=== PATIENT | male | born 1960 | race African-American/Black ===

== ENCOUNTER 2016-04-21 12:58 | Emergency (ER) | payer MEDICARE, OTHER ==
[2016-04-21 13:09] VITALS: TEMP 98.5
[2016-04-21] MEDS ORDERED: METOCLOPRAMIDE 5 MG/ML 2 ML VIAL IVP STA (13:20)
[2016-04-21] MEDS ORDERED: diphenhydrAMINE 50 MG/ML 1 ML VIAL IVP STA (13:20)
[2016-04-21] MEDS ORDERED: SODIUM CHLORIDE 0.9% 1,000 ML IV STA (13:20)
[2016-04-21] MEDS ORDERED: ACETAMINOPHEN IV (For NPO) 1,000 MG in EMPTY BAG 1 BAG IVPB STA (13:21)
[2016-04-21] MEDS ORDERED: cloNIDine HCL 0.1 MG TAB PO STA (13:28)
--- NOTE | 2016-04-21 13:34 | ED ---
Recheck HPI - General Chief Complaint: Recheck/Abnormal Lab/Rx Stated Complaint: Headache Time Seen by Provider: 04/21/16 13:20 Source: patient, EMS, RN notes reviewed Mode of arrival: EMS Limitations: no limitations - History of Present Illness Initial Comments: Patient is a 55-year-old male with a chief complaint of a migraine-like headache for approximately one morning. Patient reports that he has history of hypertension and usually is migraines are related is high blood pressure. Patient reports that he manages this with atenolol and hydrochlorothiazide and to take his medications this morning. Patient reports that he has a history of coronary artery disease, hypertension and type 2 diabetes. Patient denies any neurological deficits. He reports that he went to a pharmacy earlier today to check his blood pressure and it was reading 240/128. At that point patient decided to take EMS to the ER. While patient is in the ER the blood pressure is currently 170/90. Patient adamantly denies any chest pain or shortness of breath. Patient denies any changes in vision. Patient denies any recent fever, chills, shortness of breath, chest pain, back pain, abdominal pain, nausea vomiting, numbness or tingling, dysuria or hematuria, constipation or diarrhea, or visual changes, or any other current symptoms - Related Data Home Medications Medication Instructions Recorded Confirmed Atenolol [Tenormin] 50 mg PO DAILY 07/14/14 04/21/16 Lisinopril [Zestril] 10 mg PO DAILY 07/15/14 04/21/16 Pravastatin Sodium [Pravachol] 40 mg PO DAILY 07/15/14 04/21/16 Furosemide [Lasix] 40 mg PO DAILY 04/21/16 04/21/16 HYDROcodone/APAP 7.5-325MG [[place] 1 tab PO Q8H PRN 04/21/16 04/21/16 7.5-325] metFORMIN HCL [metFORMIN HCL ER] 750 mg PO BID 04/21/16 04/21/16 Allergies Allergy/AdvReac Type Severity Reaction Status Date / Time No Known Allergies Allergy Verified 04/21/16 13:36 Review of Systems ROS Statement: Those systems with pertinent positive or pertinent negative responses have been documented in the HPI. ROS Other: All systems not noted in ROS Statement are negative. 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 He denies any street drug use. He drinks alcohol on a rare basis. Past Drug Use History: None Reported - Past Family History Father Additional Family Medical History / Comment(s): Father at 66 from coronary artery disease. Mother Family Medical History: Cancer Additional Family Medical History / Comment(s): Mother at age 42 from breast cancer. Patient has 2 brothers and 2 sisters with no major medical problems besides one sister with MRSA General Exam - General Exam Comments Initial Comments: Patient is a pleasant 55-year-old -[place] male. He does not appear to be in any acute distress. Patient is joking and laughing while the bedside. Limitations: no limitations General appearance: alert, in no apparent distress Head exam: Present: atraumatic, normocephalic, normal inspection Eye exam: Present: normal appearance, PERRL, EOMI. Absent: scleral icterus, conjunctival injection, periorbital swelling ENT exam: Present: normal exam, mucous membranes moist Neck exam: Present: normal inspection. Absent: tenderness, meningismus, lymphadenopathy Respiratory exam: Present: normal lung sounds bilaterally. Absent: respiratory distress, wheezes, rales, rhonchi, stridor Cardiovascular Exam: Present: regular rate GI/Abdominal exam: Present: soft, normal bowel sounds. Absent: distended, tenderness, guarding, rebound, rigid Extremities exam: Present: normal inspection, full ROM, normal capillary refill. Absent: tenderness, pedal edema, joint swelling, calf tenderness Back exam: Present: normal inspection Neurological exam: Present: alert, oriented X3, CN II-XII intact Expanded Speech: Present: fluid speech Cranial nerves: EOM's Intact: Normal, Gag Reflex: Normal, Tongue Deviation: Normal Cerebellar function: Finger to Nose: Normal Upper motor neuron: Pronator Drift: Normal Sensory exam: Upper Extremity Light Touch: Normal, Lower Extremity Light Touch: Normal Motor strength exam: RUE: 5, LUE: 5, RLE: 5, LLE: 5 Eye Response: (4) open spontaneously Motor Response: (6) obeys commands Verbal Response: (5) oriented Gail Total: 15 Psychiatric exam: Present: normal affect, normal mood Skin exam: Present: warm, dry, intact, normal color. Absent: rash Course Vital Signs 04/21/16 04/21/16 04/21/16 13:05 14:12 15:09 Temperature 98.5 F Pulse Rate 55 L 56 L 55 L Respiratory 18 18 16 Rate Blood Pressure 179/90 169/85 154/85 O2 Sat by Pulse 98 95 98 Oximetry - Reevaluation(s) Reevaluation #1: 04/21/16 14:44 Patient was reevaluated at this time and his blood pressure is going significantly down. Patient headache is currently a 2 out of 10. His blood pressure at this time is 153/80. Medical Decision Making - Medical Decision Making Patient is a 55-year-old male with chief complaint of headache as well as high blood pressure for approximately 1 day. Patient BMP shows no evidence of any acute kidney injury. Patient reports earlier today his blood pressure was 220/ 110 at a pharmacy. Patient arrived via EMS to the [facility] and his blood pressure at that time was 179/90. Patient was given IV hydration, Reglan, Benadryl and O from it. Patient was reevaluated and his headache is gone down significantly. Patient reports his headache is currently a [address] brain shows no evidence of any acute abnormalities, intracranial hemorrhage or midline shift. Patient will be discharged at this time and instructed to follow-up with primary care provider regards to hypertension. I advised patient to return to the [facility] if any alarming signs or symptoms occur. Patient understands treatment plan will comply. Return parameters were discussed. - Lab Data Result diagrams: 04/21/16 14:10 Lab Results 04/21/16 Range/Units 14:10 Sodium 144 (137-145) mmol/L Potassium 4.3 (3.5-5.1) mmol/L Chloride 105 (98-107) mmol/L Carbon Dioxide 28 (22-30) mmol/L Anion Gap 11 mmol/L BUN 12 (9-20) mg/dL Creatinine 0.98 (0.66-1.25) mg/dL Est GFR (MDRD) Af Amer >60 (>60 ml/min/1.73 sqM) Est GFR (MDRD) Non-Af >60 (>60 ml/min/1.73 sqM) Glucose 113 H (74-99) mg/dL Calcium 9.8 (8.4-10.2) mg/dL - Radiology Data Radiology results: report reviewed CT brain is negative for any acute process. Disposition Clinical Impression: Acute headache, Hypertension Disposition: HOME SELF-CARE Condition: Good Instructions: Acute Headache (ED) Additional Instructions: Patient instructed to follow-up with primary care provider regards to hypertension. Take Motrin Tylenol for further headaches. Return to the EC if any alarming signs or symptoms occur. Referrals: Ava Calzada MD [Primary Care Provider] - 1-2 days Time of Disposition: 14:56
[2016-04-21 14:41] LABS: Anion Gap 11 mmol/L; Blood Urea Nitrogen 12 mg/dL (9-20); Calcium 9.8 mg/dL (8.4-10.2); Carbon Dioxide 28 mmol/L (22-30); Chloride 105 mmol/L (98-107); Glucose 113 mg/dL (74-99); Non-African American GFR(MDRD) >60 (>60 ml/min/1.73 sqM); Potassium 4.3 mmol/L (3.5-5.1); Sodium 144 mmol/L (137-145)
--- NOTE | 2016-04-21 14:56 | CT ---
EXAMINATION TYPE: CT brain wo con DATE OF EXAM: 04/21/2016 2:35 PM COMPARISON: NONE HISTORY: Headache CT DLP: 1213 mGycm Automated exposure control for dose reduction was used. FINDINGS: Ventricles and sulci appear normal. There is no mass effect nor midline shift. There is no sign of in tracranial hemorrhage. The calvarium is intact. IMPRESSION: Negative unenhanced head CT scan.
[2016-04-21 15:09] VITALS: BP 154/85; PULSE 55; RESP 16
== END 2016-04-21 15:26 | disposition home or self-care (01) ==
LOC: EC 12:58
DX: I10 Essential (primary) hypertension (principal); R51 Headache; E11.9 Type 2 diabetes mellitus without complications; E78.5 Hyperlipidemia, unspecified; I25.10 Atherosclerotic heart disease of native coronary artery without angina pectoris; G47.30 Sleep apnea, unspecified; Z99.89 Dependence on other enabling machines and devices; Z79.84 Long term (current) use of oral hypoglycemic drugs; Z79.899 Other long term (current) drug therapy
CPT/HCPCS: 36415; 80048; 70450; 99285; 96365; 96375 ×2; 96361; J1200; J2765; J0131

== ENCOUNTER 2016-04-22 12:33 | Emergency (ER) | payer MEDICARE, OTHER ==
[2016-04-22 12:43] VITALS: TEMP 98.5
[2016-04-22] MEDS ORDERED: LISINOPRIL 10 MG TAB PO STA (14:01)
--- NOTE | 2016-04-22 14:09 | ED ---
General Adult HPI - General Chief complaint: Recheck/Abnormal Lab/Rx Stated complaint: Hypertension Time Seen by Provider: 04/22/16 13:52 Source: patient, RN notes reviewed, old records reviewed Mode of arrival: ambulatory Limitations: no limitations - History of Present Illness Initial comments: Patient 55-year-old male with significant past medical history for hypertension , who presents emergency room today with chief complaint of elevated blood pressure. Patient does admit that he had a cough at home took his blood pressure again this morning was 184/107. States he called his family doctor's office. States they were at lunch and was advised coming here to emergency room if blood pressure increased. Patient does admit that he was seen here yesterday for elevated blood pressure with headache. He states he was given medications and began feeling better. He states she's not having any headache at this time. He states feels fine a symptomatic otherwise. Take his blood pressure medications this morning. He states he took his Lasix 40 mg, atenolol 50 mg, and lisinopril 10 mg this morning. Patient denies any recent fever, chills, shortness of breath, chest pain, back pain, abdominal pain, nausea or vomiting, numbness or tingling, dysuria or hematuria, constipation or diarrhea, headaches or visual changes, or any other complaints. - Related Data Home Medications Medication Instructions Recorded Confirmed Atenolol [Tenormin] 50 mg PO DAILY 07/14/14 04/21/16 Lisinopril [Zestril] 10 mg PO DAILY 07/15/14 04/21/16 Pravastatin Sodium [Pravachol] 40 mg PO DAILY 07/15/14 04/21/16 Furosemide [Lasix] 40 mg PO DAILY 04/21/16 04/21/16 HYDROcodone/APAP 7.5-325MG [[place] 1 tab PO Q8H PRN 04/21/16 04/21/16 7.5-325] metFORMIN HCL [metFORMIN HCL ER] 750 mg PO BID 04/21/16 04/21/16 Allergies Allergy/AdvReac Type Severity Reaction Status Date / Time No Known Allergies Allergy Verified 04/22/16 12:42 Review of Systems ROS Statement: Those systems with pertinent positive or pertinent negative responses have been documented in the HPI. ROS Other: All systems not noted in ROS Statement are negative. 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 He denies any street drug use. He drinks alcohol on a rare basis. Past Drug Use History: None Reported - Past Family History Father Additional Family Medical History / Comment(s): Father at 66 from coronary artery disease. Mother Family Medical History: Cancer Additional Family Medical History / Comment(s): Mother at age 42 from breast cancer. Patient has 2 brothers and 2 sisters with no major medical problems besides one sister with MRSA General Exam - General Exam Comments Initial Comments: General: The patient is awake and alert, in no distress, and does not appear acutely ill. Eye: Pupils are equal, round and reactive to light, extra-ocular movements are intact. No nystagmus. There is normal conjunctiva bilaterally. No signs of icterus. Ears, nose, mouth and throat: There are moist mucous membranes and no oral lesions. Neck: The neck is supple, there is no tenderness or JVD. Cardiovascular: There is a regular rate and rhythm. No murmur, rub or gallop is appreciated. Respiratory: Lungs are clear to auscultation, respirations are non-labored, breath sounds are equal. No wheezes, stridor, rales, or rhonchi. Musculoskeletal: Normal ROM, no tenderness. Strength 5/5. Sensation intact. Pulses equal bilaterally 2+. Neurological: A&O x 3. CN II-XII intact, There are no obvious motor or sensory deficits. Coordination appears grossly intact. Speech is normal. Skin: Skin is warm and dry and no rashes or lesions are noted. Psychiatric: Cooperative, appropriate mood & affect, normal judgment. Limitations: no limitations Course Vital Signs 04/22/16 12:39 Temperature 98.5 F Pulse Rate 60 Respiratory 16 Rate Blood Pressure 208/98 O2 Sat by Pulse 96 Oximetry Medical Decision Making - Medical Decision Making Case discussed in detail with attending physician Dr. Batista. Patient's chart from yesterday reviewed. Negative CAT scan. Patient's comprehensive panel negative. Patient is symptomatically here in the emergency room. Denies any complaints. States his blood pressure was elevated at home. Patient will be discharged home and advised to increase his lisinopril to 20 mg daily. Patient given extra dose here in the emergency room. he advised follow-up the family doctor in the next 2 days. Advised return to emergency room symptoms increase worsen. Patient states understanding and is in agreement. Disposition Clinical Impression: Hypertension Disposition: HOME SELF-CARE Condition: Good Instructions: Hypertension (ED) Additional Instructions: Please increase dose of the lisinopril 20 mg daily. Please follow-up the family doctor over the next 1-2 days to have blood pressure rechecked. Please return here to emergency room if any symptoms increase or worsen or for any other concerns. Time of Disposition: 14:06
[2016-04-22 14:27] VITALS: BP 182/99; PULSE 62; RESP 18
== END 2016-04-22 14:36 | disposition home or self-care (01) ==
LOC: EC 12:33
DX: I10 Essential (primary) hypertension (principal); E78.5 Hyperlipidemia, unspecified; R05 Cough; E11.9 Type 2 diabetes mellitus without complications; I25.10 Atherosclerotic heart disease of native coronary artery without angina pectoris; Z99.89 Dependence on other enabling machines and devices; G47.30 Sleep apnea, unspecified; Z79.899 Other long term (current) drug therapy; Z79.84 Long term (current) use of oral hypoglycemic drugs
CPT/HCPCS: 99283

== ENCOUNTER 2016-05-25 22:09 | Emergency (ER) | payer MEDICARE, OTHER ==
--- NOTE | 2016-05-25 22:53 | ED ---
Lower Extremity Injury HPI - General Chief Complaint: Extremity Injury, Lower Stated Complaint: Knee Pain Time Seen by Provider: 05/25/16 22:21 Source: patient, RN notes reviewed Mode of arrival: EMS Limitations: no limitations - History of Present Illness Initial Comments: Patient is a 56-year-old male presents to the emergency room for evaluation of left knee pain. Patient states he's been having on and off left knee pain for the past year. Patient states he recently had x-rays but did not get the report back yet. Patient states he was trying to catch the bus earlier this evening and felt his left knee give out. Patient states he began having excruciating pain on the posterior portion of his knee as well as the medial portion of his knee. Patient states he was experiencing intense pain so he called EMS. Patient states the pain is worse when he bends his knee. Patient denies any numbness or tingling in his toes. Patient denies falling to the ground after his knee gave out. Patient denies any previous injuries to that knee. Patient denies any other injuries during incident. - Related Data Home Medications Medication Instructions Recorded Confirmed Atenolol [Tenormin] 50 mg PO DAILY 07/14/14 04/22/16 Lisinopril [Zestril] 10 mg PO DAILY 07/15/14 04/22/16 Pravastatin Sodium [Pravachol] 40 mg PO DAILY 07/15/14 04/22/16 Furosemide [Lasix] 40 mg PO DAILY 04/21/16 04/22/16 HYDROcodone/APAP 7.5-325MG [[place] 1 tab PO Q8H PRN 04/21/16 04/22/16 7.5-325] metFORMIN HCL [metFORMIN HCL ER] 750 mg PO BID 04/21/16 04/22/16 Allergies Allergy/AdvReac Type Severity Reaction Status Date / Time No Known Allergies Allergy Verified 05/25/16 22:16 Review of Systems ROS Statement: Those systems with pertinent positive or pertinent negative responses have been documented in the HPI. ROS Other: All systems not noted in ROS Statement are negative. 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 He denies any street drug use. He drinks alcohol on a rare basis. Past Drug Use History: None Reported - Past Family History Father Additional Family Medical History / Comment(s): Father at 66 from coronary artery disease. Mother Family Medical History: Cancer Additional Family Medical History / Comment(s): Mother at age 42 from breast cancer. Patient has 2 brothers and 2 sisters with no major medical problems besides one sister with MRSA General Exam - General Exam Comments Initial Comments: Sitting in exam room in no acute distress. Limitations: no limitations General appearance: alert, in no apparent distress Head exam: Present: atraumatic, normocephalic, normal inspection Eye exam: Present: normal appearance ENT exam: Present: normal exam Neck exam: Present: normal inspection Respiratory exam: Absent: respiratory distress Left Upper Leg exam: Present: normal inspection, full ROM. Absent: tenderness Knee exam: Present: normal inspection, full ROM, tenderness (Medial knee joint, posterior knee joint), full knee extension. Absent: swelling, abrasion, ecchymosis, deformity Lower Leg exam: Present: normal inspection, full ROM. Absent: tenderness Neurovascular tendon exam: Present: no vascular compromise. Absent: pulse deficit (2+ dorsal pedal and posterior tibial pulses), abnormal cap refill ( Capillary refill less than 2 seconds) Back exam: Present: normal inspection Neurological exam: Present: alert, oriented X3, CN II-XII intact Psychiatric exam: Present: normal affect, normal mood Skin exam: Present: warm, dry, intact, normal color. Absent: rash Course Vital Signs 05/25/16 05/25/16 05/26/16 22:16 23:41 00:07 Temperature 97.9 F 98.6 F 97.6 F Pulse Rate 57 L 60 60 Respiratory 18 20 18 Rate Blood Pressure 189/91 199/105 194/97 O2 Sat by Pulse 97 99 97 Oximetry Procedures - Orthopedic Splinting/Casting Injury #1 Side: left Lower Extremity Injury Location: knee Lower Extremity Immobilizer: Rogerio wrap Medical Decision Making - Medical Decision Making Patient is a 56-year-old male presents emergency room for evaluation of left knee injury. Left knee x-ray shows no acute findings. Patient placed in Rogerio wrap. Advised patient to follow-up with survival specialist if symptoms are not improving in 7-10 days. Patient states he understands everything that was discussed with him. Return parameters discussed. Case discussed with Dr. Torres. Disposition Clinical Impression: Left knee sprain Disposition: HOME SELF-CARE Condition: Good Instructions: Knee Sprain (ED) Additional Instructions: Rest, elevate and ice on and off for 10-15 minutes for the next 24-48 hours. Take at home pain medications as needed. Please follow-up with survival specialist if symptoms are not improving in 7-10 days. If new symptoms develop or symptoms worsen, please return to the ER. Referrals: Ava Calzada MD [Primary Care Provider] - 1-2 days Shalom Lombardo MD [STAFF PHYSICIAN] - 06/03/16 Time of Disposition: 23:43
[2016-05-25] MEDS ORDERED: HYDROcodone/APAP 5-325MG 1 EACH TAB PO STA (23:42)
[2016-05-25 23:43] VITALS: PULSE 60
--- NOTE | 2016-05-25 23:55 | XR ---
EXAM: XR Left Knee, 3 views. CLINICAL HISTORY: Reason: Pain. Twisting injury. TECHNIQUE: Three views of the left knee. COMPARISON: No relevant prior studies available. FINDINGS: No acute fracture or dislocation. Arthritic changes which appear mild by plain film. Small enthesophyte at the patella at insertion of quadriceps tendon. IMPRESSION: No acute fracture or dislocation.
[2016-05-26 00:08] VITALS: BP 194/97; RESP 18; TEMP 97.6
== END 2016-05-26 00:08 | disposition home or self-care (01) ==
LOC: EC 22:09
DX: S83.92XA Sprain of unspecified site of left knee, initial encounter (principal); X58.XXXA Exposure to other specified factors, initial encounter; E11.9 Type 2 diabetes mellitus without complications; E78.5 Hyperlipidemia, unspecified; I10 Essential (primary) hypertension; I25.10 Atherosclerotic heart disease of native coronary artery without angina pectoris; Z79.84 Long term (current) use of oral hypoglycemic drugs; Z79.899 Other long term (current) drug therapy
CPT/HCPCS: 99283

== ENCOUNTER 2016-07-20 10:16 | Emergency (ER) | payer MEDICARE ==
[2016-07-20 10:35] VITALS: BP 157/74; PULSE 63; RESP 18; TEMP 98.5
--- NOTE | 2016-07-20 11:12 | ED ---
General Adult HPI - General Chief complaint: Allergic Reaction Stated complaint: ALLERGIC REACTION, PAIN Time Seen by Provider: 07/20/16 10:40 Source: patient, RN notes reviewed, old records reviewed Mode of arrival: wheelchair Limitations: physical limitation - History of Present Illness Initial comments: Chief complaint and history of present illness a 56-year-old male to complaint of rash and redness and itchiness to both inner thighs. He thinks it may been caused by a recent steroid shots and is need for painful meniscus. At the time the patient arrived to the emergency room and the area was examined the rash had subsided. - Related Data Home Medications Medication Instructions Recorded Confirmed Atenolol [Tenormin] 50 mg PO DAILY 07/14/14 07/20/16 Lisinopril [Zestril] 10 mg PO DAILY 07/15/14 07/20/16 Pravastatin Sodium [Pravachol] 40 mg PO DAILY 07/15/14 07/20/16 Furosemide [Lasix] 40 mg PO DAILY 04/21/16 07/20/16 HYDROcodone/APAP 7.5-325MG [[place] 1 tab PO Q8H PRN 04/21/16 07/20/16 7.5-325] metFORMIN HCL [metFORMIN HCL ER] 750 mg PO BID 04/21/16 07/20/16 Allergies Allergy/AdvReac Type Severity Reaction Status Date / Time valsartan Allergy Unknown Verified 07/20/16 10:39 Review of Systems ROS Statement: Those systems with pertinent positive or pertinent negative responses have been documented in the HPI. Is systems no complaint of headache or visual acuity changes no chest pain slight shortness of breath which improved while being examined. No chest pain no complaints of any abdominal pain problems. He is being treated for a left meniscus pain his orthopedic surgeon. Systems reviewed. Past medical problems significant for coronary artery disease, diabetes mellitus, hyperlipidemia, hypertension, sleep apnea, degenerative disc disease chronic back pain. Surgeries back surgery. Family history noncontributory patient reports ALLERGIES to valsartan ROS Other: All systems not noted in ROS Statement are negative. 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 He denies any street drug use. He drinks alcohol on a rare basis. Past Drug Use History: None Reported - Past Family History Father Additional Family Medical History / Comment(s): Father at 66 from coronary artery disease. Mother Family Medical History: Cancer Additional Family Medical History / Comment(s): Mother at age 42 from breast cancer. Patient has 2 brothers and 2 sisters with no major medical problems besides one sister with MRSA General Exam - General Exam Comments Initial Comments: General: The patient is awake and alert, in no distress, and does not appear acutely ill. Rash that he noticed at home has since subsided. Vital signs shows temperature 98.5 pulse 63 respiratory rate 18 pulse ox 97% room air blood pressure 157/74 Eye: Pupils are equal, round and reactive to light, extra-ocular movements are intact ; there is normal conjunctiva bilaterally. No signs of icterus. Ears, nose, mouth and throat: There are moist mucous membranes and no oral lesions. Neck: The neck is supple, Cardiovascular: There is a regular rate and rhythm. No murmur, rub or gallop is appreciated. Respiratory: Lungs are clear to auscultation, respirations are non-labored, breath sounds are equal. No wheezes, stridor, rales, or rhonchi. G Musculoskeletal: Currently being treated for left meniscus tear. No rash noted where it had been there just one hour ago to the medial aspect of both thighs. We discussed possibility of ALLERGIC reaction to the clothing he wore to bed last night he will check his detergents. Skin: Skin is warm and dry and no rashes or lesions are noted. Limitations: physical limitation Course Vital Signs 07/20/16 07/20/16 10:32 10:55 Temperature 98.5 F Pulse Rate 63 Respiratory 18 18 Rate Blood Pressure 157/74 O2 Sat by Pulse 97 Oximetry Medical Decision Making - Medical Decision Making Check her clothing any detergents including fabric softener etc. Follow-up with family physician Disposition Clinical Impression: Allergic reaction Disposition: HOME SELF-CARE Condition: Stable Instructions: Antihistamine (By mouth) Additional Instructions: Checks clothing, check detergents check fabric softeners etc., new foods. Follow-up family physician. Take Benadryl 50 mg if he develop hives or rash. Return emergency room. Difficulty breathing. Time of Disposition: 11:12
== END 2016-07-20 11:29 | disposition home or self-care (01) ==
LOC: EC 10:16
DX: R21 Rash and other nonspecific skin eruption (principal); T38.0X5A Adverse effect of glucocorticoids and synthetic analogues, initial encounter; E11.9 Type 2 diabetes mellitus without complications; I25.10 Atherosclerotic heart disease of native coronary artery without angina pectoris; E78.5 Hyperlipidemia, unspecified; I10 Essential (primary) hypertension; Z79.84 Long term (current) use of oral hypoglycemic drugs; Z79.899 Other long term (current) drug therapy; Z88.8 Allergy status to other drugs, medicaments and biological substances
CPT/HCPCS: 99283

== ENCOUNTER → 2016-07-26 | Outpatient (CLI) | payer MEDICARE, OTHER ==
--- NOTE | 2016-07-26 15:55 | XR ---
EXAMINATION TYPE: XR lumbar spine 2 or 3V DATE OF EXAM ORDERED: 07/26/2016 3:50 PM HISTORY: PAIN. COMPARISON: None. FINDINGS: Vertebral body height and alignment are maintained. There is no spondylolysis or spondylol isthesis. There is mild disc space loss at L5-S1. The pedicles are intact. IMPRESSION: 1. NO ACUTE OSSEOUS LESION. 2. MILD DEGENERATIVE CHANGE.
--- NOTE | 2016-07-26 15:55 | XR ---
EXAMINATION TYPE: XR shoulder limited LT DATE OF EXAM ORDERED: 07/26/2016 3:51 PM HISTORY: PAIN. COMPARISON: None. FINDINGS: No fracture, dislocation or other acute osseous lesion is seen. There is minimal hypertrop hic change in the left AC joint. IMPRESSION: 1. NO ACUTE OSSEOUS LESION. 2. MINIMAL DEGENERATIVE CHANGE.
--- NOTE | 2016-07-26 15:57 | XR ---
EXAMINATION TYPE: XR hand limited bilateral DATE OF EXAM ORDERED: 07/26/2016 3:51 PM HISTORY: PAIN. COMPARISON: None. FINDINGS: No fracture or dislocation is seen. There is mild deformity of the right fifth metacarpal likely due to luminal "boxer's" fracture. There are mild degenerative changes in the DIP joint of the long and ring fingers on the right There are minor degenerative changes in the triscaphe joint bilaterally. IMPRESSION: 1. NO ACUTE OSSEOUS LESION. 2. EVIDENCE OF OLD TRAUMA TO THE RIGHT FIFTH METACARPAL. 3. DEGENERATIVE CHANGE.
--- NOTE | 2016-07-26 16:02 | XR ---
EXAMINATION TYPE: XR knee limited LT DATE OF EXAM ORDERED: 07/26/2016 3:54 PM HISTORY: PAIN. COMPARISON: None. FINDINGS: The joint spaces are well maintained. No fracture, dislocation or joint effusion is seen. IMPRESSION: NORMAL LEFT KNEE.
--- NOTE | 2016-07-26 16:03 | XR ---
EXAMINATION TYPE: XR tibia fibula LT DATE OF EXAM ORDERED: 07/26/2016 3:55 PM HISTORY: PAIN. COMPARISON: None. FINDINGS: No fracture, dislocation or other acute osseous lesion is seen. IMPRESSION: NORMAL LEFT TIBIA AND FIBULA.
--- NOTE | 2016-07-26 16:05 | XR ---
EXAMINATION TYPE: XR cervical spine limited DATE OF EXAM ORDERED: 07/26/2016 3:50 PM HISTORY: PAIN. COMPARISON: None. FINDINGS: Vertebral body height and alignment are maintained. Atlantoaxial relationships are normal. Prevertebral soft tissues are normal. There is mild hypertrophic spondylosis present at C4-5. There is minimal uncovertebral joint disease at C5-6 and C6-7. IMPRESSION: 1. NO ACUTE OSSEOUS LESION. 2. MILD DEGENERATIVE CHANGE.
== END ==
LOC: RADXRMAIN 14:50
PROVIDERS: ATTEND Internal Medicine
DX: M19.012 Primary osteoarthritis, left shoulder (principal); M47.816 Spondylosis without myelopathy or radiculopathy, lumbar region; M19.041 Primary osteoarthritis, right hand; M19.042 Primary osteoarthritis, left hand; M25.562 Pain in left knee; M79.662 Pain in left lower leg; M47.812 Spondylosis without myelopathy or radiculopathy, cervical region
CPT/HCPCS: 72040; 72100

== ENCOUNTER 2016-10-01 18:10 | Emergency (ER) | payer MEDICARE, OTHER ==
[2016-10-01 18:33] VITALS: BP 197/105; PULSE 70; RESP 20; TEMP 99.5
--- NOTE | 2016-10-01 19:07 | ED ---
General Adult HPI - General Chief complaint: Extremity Injury, Lower Stated complaint: Left Knee Pain Time Seen by Provider: 10/01/16 18:42 Source: patient, RN notes reviewed Mode of arrival: ambulatory Limitations: no limitations - History of Present Illness Initial comments: 56-year-old male presents for signs left knee. HH and states that he underwent surgery 2 weeks ago and has continued to have some swelling and pain to the knee. Patient states she followed up with Dr. Adams for this. Patient states there is no new falls traumas or injuries. Patient states he simply needs something for the pain. Patient states is not currently having any other symptoms.Patient denies any recent fever, chills, shortness of breath, chest pain, back pain, abdominal pain, nausea vomiting, numbness or tingling, dysuria or hematuria, constipation or diarrhea, headaches or visual changes, or any other current symptoms. - Related Data Home Medications Medication Instructions Recorded Confirmed Atenolol [Tenormin] 50 mg PO DAILY 07/14/14 07/20/16 Lisinopril [Zestril] 10 mg PO DAILY 07/15/14 07/20/16 Pravastatin Sodium [Pravachol] 40 mg PO DAILY 07/15/14 07/20/16 Furosemide [Lasix] 40 mg PO DAILY 04/21/16 07/20/16 HYDROcodone/APAP 7.5-325MG [[place] 1 tab PO Q8H PRN 04/21/16 07/20/16 7.5-325] metFORMIN HCL [metFORMIN HCL ER] 750 mg PO BID 04/21/16 07/20/16 Previous Rx's Medication Instructions Recorded Hydrocodone/Acetaminophen [[place] 1 each PO Q6HR PRN #20 tab 10/01/16 5-325] Allergies Allergy/AdvReac Type Severity Reaction Status Date / Time valsartan Allergy Unknown Verified 07/20/16 10:39 Review of Systems ROS Statement: Those systems with pertinent positive or pertinent negative responses have been documented in the HPI. ROS Other: All systems not noted in ROS Statement are negative. 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 Mother Family Medical History: Cancer Additional Family Medical History / Comment(s): Mother at age 42 from breast cancer. Patient has 2 brothers and 2 sisters with no major medical problems besides one sister with MRSA General Exam - General Exam Comments Initial Comments: General: The patient is awake and alert, in no distress, and does not appear acutely ill. Neck: The neck is supple, there is no tenderness. Cardiovascular: There is a regular rate and rhythm. No murmur, rub or gallop is appreciated. Respiratory: Lungs are clear to auscultation, respirations are non-labored, breath sounds are equal. No wheezes, stridor, rales, or rhonchi. Musculoskeletal: sensation intact with 2+ pulses throughout the left upper extremity. Full range of motion left knee with some effusion noted. No pain to her left ankle or left hip. Neurological: CN II-XII intact, There are no obvious motor or sensory deficits. Coordination appears grossly intact. Speech is normal. Skin: Skin is warm and dry and no rashes or lesions are noted. Psychiatric: Normal mood and affect. Limitations: no limitations Course Vital Signs 10/01/16 18:30 Temperature 99.5 F Pulse Rate 70 Respiratory 20 Rate Blood Pressure 197/105 O2 Sat by Pulse 97 Oximetry Medical Decision Making - Medical Decision Making 56-year-old male presents for left kneelesion. At this time he's had it drained twice. We discussed these follow-up dorsal for additional drainage. There is no warmth to the knee no redness. This time we did place him in an Rogerio wrap. We discussed return parameters and follow-up and all questions. Patient stated that he understood he is given the plan. He will be discharged. Disposition Clinical Impression: Effusion, left knee Disposition: HOME SELF-CARE Condition: Stable Instructions: Swollen Knee Joint (ED) Additional Instructions: Please use medication as discussed. Please follow up with family doctor if symptoms have not improved over the next two days. Please return to the emergency room if your symptoms increase or worsen or for any other concerns. Prescriptions: Hydrocodone/Acetaminophen [[place] 5-325] 1 each PO Q6HR PRN #20 tab PRN Reason: Pain Referrals: Dinah Carter MD [Primary Care Provider] - 1-2 days Time of Disposition: 19:06
== END 2016-10-01 19:15 | disposition home or self-care (01) ==
LOC: EC 18:10
DX: M25.462 Effusion, left knee (principal); E11.9 Type 2 diabetes mellitus without complications; E78.5 Hyperlipidemia, unspecified; I10 Essential (primary) hypertension; I25.10 Atherosclerotic heart disease of native coronary artery without angina pectoris; Z79.899 Other long term (current) drug therapy; Z79.84 Long term (current) use of oral hypoglycemic drugs; Z88.8 Allergy status to other drugs, medicaments and biological substances
CPT/HCPCS: 99282

== ENCOUNTER → 2017-10-06 | Outpatient (CLI) | payer MEDICARE ==
--- NOTE | 2017-10-06 15:08 | XR ---
EXAMINATION TYPE: XR lumbar spine 2 or 3V DATE OF EXAM: 10/06/2017 CLINICAL HISTORY: No recent injury. Chronic back pain. TECHNIQUE: Frontal and lateral images of the lumbar spine are obtained. COMPARISON: 07/26/2016 FINDINGS: There are 5 lumbar type vertebral bodies identified. The lumbar spine shows satisfactory alignment without evidence of acute fracture or dislocation. Vertebral body heights are within normal limits. Again there is very mild intervertebral disc space loss at L5-S1 and mild facet arthropathy at L4-5 and L5-S1. Small anterior osteophytes are seen of the lower thoracic spine. The overlying so ft tissue appears unremarkable. IMPRESSION: No acute fracture or malalignment is seen in the lumbar spine. Mild degenerative changes of the lower lumbar spine.
--- NOTE | 2017-10-06 15:10 | XR ---
EXAMINATION TYPE: XR thoracic spine 2V DATE OF EXAM: 10/06/2017 CLINICAL HISTORY: Thoracic spine pain with no known injury. TECHNIQUE: Frontal, lateral, and swimmer's view of thoracic spine are obtained. COMPARISON: None. FINDINGS: Thoracic spine show satisfactory alignment without evidence of acute fracture or dislocatio n. Very mild degenerative changes of the thoracic spine are noted as small anterior osteophytes of th e thoracolumbar junction. Vertebral body heights and disc space heights are preserved. Visualized rib s are unremarkable. IMPRESSION: 1. No acute fracture or dislocation is seen in the thoracic spine. 2. Very mild degenerative changes of the lower thoracic spine.
--- NOTE | 2017-10-06 15:36 | XR ---
EXAMINATION TYPE: XR cervical spine comp DATE OF EXAM: 10/06/2017 TECHNIQUE: Frontal, lateral, oblique, swimmers, and open mouth view of the cervical spine are obtaine d. HISTORY: R52 pain neck pain with no recent injury. COMPARISON: 07/26/2016 FINDINGS: The cervical spine is visualized in its entirety from C1 thru the top of T1 level, it is s atisfactory in alignment without evidence of acute fracture or dislocation. There is an anterior ost eophyte nearly bridging the C4-C5 vertebral levels. At C6-C7 there is a small anterior osteophyte. Mi ld uncovertebral hypertrophy is seen at C4-C5 and C5-C6. No significant neural foraminal narrowing ra diographically. There is straightening of usual cervical lordosis. The pre-vertebral soft tissue appe ars within normal limits. The C1-C2 articulation is within normal limits on the open mouth view. Th e oblique images are within normal limits. IMPRESSION: 1. No acute fracture or malalignment of the cervical spine 2. Straightening of the usual cervical lordosis that may relate to muscular sprain, spasm or patient positioning. 3. Mild multilevel degenerative disc disease.
== END | disposition home or self-care (01) ==
LOC: RADXRMAIN 14:12
PROVIDERS: ATTEND Internal Medicine
DX: M50.30 Other cervical disc degeneration, unspecified cervical region (principal); M47.815 Spondylosis without myelopathy or radiculopathy, thoracolumbar region
CPT/HCPCS: 72050; 72070; 72100

== ENCOUNTER → 2017-11-06 | Outpatient (CLI) | payer MEDICARE, OTHER ==
--- NOTE | 2017-11-07 15:07 | MR ---
EXAMINATION TYPE: MR cspine/lspine wo con DATE OF EXAM: 11/06/2017 COMPARISON: Cervical and lumbar radiographs dated 10/06/2017. HISTORY: Neck and back pain TECHNIQUE: Multiplanar, multisequence imaging of the cervical and lumbar spine is performed without I V contrast. FINDINGS: CERVICAL SPINE: The cervical spine vertebral bodies maintain normal vertebral body heights and alignment. Spinal cord signal and bone marrow signal are within normal limits. Visualized portions of the posterior fossa a re unremarkable. Multilevel disc desiccation is seen. C2-C3: No significant disc disease, spinal canal stenosis or neuroforaminal narrowing. C3-C4: Disc desiccation and minimal uncovertebral hypertrophy without spinal canal stenosis or neural foraminal narrowing. C4-C5: Small broad-based disc bulge minimally narrowing the ventral subarachnoid space although CSF i s seen anterior to the spinal cord and there is no significant spinal canal stenosis. No neural adan inal narrowing. C5-C6: There is a very small central disc herniation without spinal canal stenosis or neural foramina l narrowing. C6-C7: There is a small central disc osteophyte complex, uncovertebral hypertrophy and mild facet art hropathy creating minimal bilateral neural foraminal narrowing but no spinal canal stenosis. C7-T1: No significant disc disease, spinal canal stenosis or neural foraminal narrowing. Although there is no abnormal signal within the paraspinal musculature there is slight increased sign al of the paraspinal musculature that can be seen in muscular sprain or spasm. Alternatively this cou ld relate to patient positioning. LUMBAR SPINE: The lumbar spine maintains normal vertebral body heights and alignment. There is normal bone marrow s ignal throughout. Conus medullaris is unremarkable terminating at L1. Disc desiccation is seen at L5- S1. L1-L2: Mild facet arthropathy and ligamentum flavum buckling are noted. No significant disc disease. No neural foraminal narrowing or spinal canal stenosis. L2-L3: Mild facet arthropathy and ligamentum flavum buckling are noted. No significant disc disease. No neural foraminal narrowing or spinal canal stenosis. L3-L4: There is a small broad-based disc bulge, facet arthropathy, and ligamentum flavum buckling la nena t create mild bilateral neural foraminal narrowing without significant spinal canal stenosis. L4-5: There is prominent ligamentum flavum buckling and facet arthropathy as well as a small broad-ba sed disc bulge that contribute to mild bilateral neural foraminal narrowing and mild spinal canal akanksha nosis. L5-S1: There is a left paracentral disc herniation extending into the lateral recess with extensive f acet arthropathy and ligamentum flavum buckling creating moderate left neural foraminal narrowing, mi [id number] right neural foraminal narrowing, and mild spinal canal stenosis. IMPRESSION: 1. Left paracentral disc herniation extending into the lateral recess with extensive degenerative fac et arthropathy and ligamentum flavum buckling at L5-S1 creating mild spinal canal stenosis and bilate ral neural foraminal narrowing. 2. Degenerative disc disease at L4-L5 with facet arthropathy and ligamentum flavum buckling creating mild spinal canal stenosis. 3. No evidence of malalignment or vertebral body height loss of the cervical or lumbar spine. 4. Slight straightening of the usual cervical lordosis that may relate to patient positioning, muscul ar sprain, or muscular spasm. 5. Very small disc herniation at C5-C6 without spinal canal stenosis or neural foraminal narrowing. 6. Small broad-based disc bulge at C4-C5 mildly narrowing the spinal canal without significant spinal canal stenosis or neural foraminal narrowing. 7. Mild bilateral neural foraminal narrowing at C6-C7 from degenerative disc disease.
== END ==
LOC: RADMRIMAIN 10:02
PROVIDERS: ATTEND Neurological Surgery
DX: M48.061 Spinal stenosis, lumbar region without neurogenic claudication (principal); M99.73 Connective tissue and disc stenosis of intervertebral foramina of lumbar region; M51.17 Intervertebral disc disorders with radiculopathy, lumbosacral region; M46.07 Spinal enthesopathy, lumbosacral region; M46.86 Other specified inflammatory spondylopathies, lumbar region; M50.122 Cervical disc disorder at C5-C6 level with radiculopathy
CPT/HCPCS: 72141; 72148

== ENCOUNTER 2018-04-02 13:11 | Emergency (ER) | payer MEDICARE, OTHER ==
[2018-04-02 13:18] VITALS: BP 184/86; PULSE 52; RESP 18; TEMP 97.8
[2018-04-02] MEDS ORDERED: IBUPROFEN 600 MG TAB PO STA (14:18)
--- NOTE | 2018-04-02 14:20 | ED ---
Extremity Problem HPI - General Chief complaint: Extremity Problem,Nontraumatic Stated complaint: elbow & toe pain Time Seen by Provider: 04/02/18 13:29 Source: patient, RN notes reviewed, old records reviewed Mode of arrival: ambulatory Limitations: no limitations - History of Present Illness Initial comments: Patient is a 37-year-old male who presents emergency department today with multiple complaints. He reports he has history of severe diffuse arthritis. Patient reports that he has main complaint is left elbow pain. He states that he sees Alla[facility] today for his complaints of generalized joint pain. However they would not see him due to lack of co-pay. Patient presents the day with complaints of left elbow pain right toe pain left knee pain. He states that all this pain is generally chronic. But the left elbow pain seemed to be worse. Patient states that he uses tumor occur anti-inflammatory properties and does not like to take medication if not necessary. His history of hypertension does use his blood pressure medicine. Patient denies any recent fever, chills, shortness of breath, chest pain, back pain, abdominal pain, nausea vomiting, numbness or tingling, dysuria or hematuria, constipation or diarrhea, headaches or visual changes, or any other current symptoms - Related Data Home Medications Medication Instructions Recorded Confirmed Atenolol [Tenormin] 50 mg PO DAILY 07/14/14 07/20/16 Lisinopril [Zestril] 10 mg PO DAILY 07/15/14 07/20/16 Pravastatin Sodium [Pravachol] 40 mg PO DAILY 07/15/14 07/20/16 Furosemide [Lasix] 40 mg PO DAILY 04/21/16 07/20/16 HYDROcodone/APAP 7.5-325MG [[place] 1 tab PO Q8H PRN 04/21/16 07/20/16 7.5-325] metFORMIN HCL [metFORMIN HCL ER] 750 mg PO BID 04/21/16 07/20/16 Previous Rx's Medication Instructions Recorded Hydrocodone/Acetaminophen [[place] 1 each PO Q6HR PRN #20 tab 10/01/16 5-325] Ibuprofen 600 mg PO TID #20 tablet 04/02/18 Allergies Allergy/AdvReac Type Severity Reaction Status Date / Time valsartan Allergy Itching Verified 04/02/18 13:19 Review of Systems ROS Statement: Those systems with pertinent positive or pertinent negative responses have been documented in the HPI. ROS Other: All systems not noted in ROS Statement are negative. 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 Mother Family Medical History: Cancer Additional Family Medical History / Comment(s): Mother at age 42 from breast cancer. Patient has 2 brothers and 2 sisters with no major medical problems besides one sister with MRSA General Exam Limitations: no limitations Course Vital Signs 04/02/18 13:12 Temperature 97.8 F Pulse Rate 52 L Respiratory 18 Rate Blood Pressure 184/86 O2 Sat by Pulse 98 Oximetry Medical Decision Making - Medical Decision Making Asians an 57-year-old male presents emergency room with history of multiple joint pains. today his complaint is mainly Left elbow pain toe pain and knee pain.He has chronic arthritic pain for 23 years. No acute falls or trauma. His biggest pain is his left elbow with range of motion. He requests refills for his temperature medication. He also states that he would like to have the brace for the elbow and knee. He associates PCP today but they would not see him due to not having the co-pay. At this time Patient otherwise appears in no distress. X-ray was reviewed of the elbow. There are some arthritic changes noted. Discussed that I would not do any joint tapping to rule out gouty or other arthritis visits nonsignificantly swollen. He is full range of motion. He has full sensation in all of his extremities and normal pulses in all 4 cavities. I discussed this time treated for an temperature medicine for general arthritic pain and following up with orthopedic. Perscription for left knee for left elbow brace and left knee brace. - Radiology Data Radiology results: report reviewed No acute fracture dislocation in the left elbow. No abnormal fat pad signs. Mild spurring of the ulnar humeral articulation is present. The overlying soft tissue appears unremarkable. Disposition Clinical Impression: Arthritis of left elbow Disposition: HOME SELF-CARE Condition: Good Instructions: Arthritis (ED) Additional Instructions: Patient has multiple training specialist in regards to chronic arthritic pain. Patient can return to emergency department if any alarming signs or symptoms occur. Patient should be taking a temperature medicine as well as icing all joint pains. Prescriptions: Ibuprofen 600 mg PO TID #20 tablet Is patient prescribed a controlled substance at d/c from ED?: No Referrals: Dinah Carter MD [Primary Care Provider] - 1-2 days Time of Disposition: 14:41
--- NOTE | 2018-04-02 14:27 | XR ---
EXAMINATION TYPE: XR elbow complete LT DATE OF EXAM: 04/02/2018 CLINICAL HISTORY: Left elbow pain. TECHNIQUE: Frontal, lateral and oblique images of the left elbow are obtained. COMPARISON: None FINDINGS: There is no acute fracture/dislocation evident in the left elbow. No abnormal fat pad sig ns are seen. Mild spurring ulnohumeral articulation is present. The overlying soft tissue appears un remarkable. IMPRESSION: As above.
== END 2018-04-02 14:55 | disposition home or self-care (01) ==
LOC: EC 13:11
DX: M19.022 Primary osteoarthritis, left elbow (principal); M79.674 Pain in right toe(s); M25.562 Pain in left knee; E11.9 Type 2 diabetes mellitus without complications; I10 Essential (primary) hypertension; G47.30 Sleep apnea, unspecified; E78.5 Hyperlipidemia, unspecified; Z79.899 Other long term (current) drug therapy; Z79.84 Long term (current) use of oral hypoglycemic drugs; Z88.8 Allergy status to other drugs, medicaments and biological substances
CPT/HCPCS: 99284

== ENCOUNTER → 2018-08-24 | Outpatient (CLI) | payer MEDICARE ==
--- NOTE | 2018-08-25 08:29 | XR ---
EXAMINATION TYPE: XR knee complete RT DATE OF EXAM: 08/24/2018 CLINICAL HISTORY: Right knee pain with no known injury TECHNIQUE: Three views of the right knee are obtained. COMPARISON: None. FINDINGS: There is no acute fracture/dislocation evident in right knee. There is minimal medial comp artment joint space narrowing and very small tricompartmental osteophytes most pronounced in the bryan llofemoral compartment. The overlying soft tissue appears unremarkable. No sizable joint effusion. IMPRESSION: There is no acute fracture or dislocation in the right knee. Mild tricompartmental arthr opathy.
== END | disposition home or self-care (01) ==
LOC: RADXRMAIN 16:05
PROVIDERS: ATTEND Physician Assistant
DX: M17.11 Unilateral primary osteoarthritis, right knee (principal)

== ENCOUNTER 2019-04-07 03:39 | Emergency (ER) | payer MEDICARE, OTHER ==
[2019-04-07 03:55] VITALS: BP 187/95; PULSE 93; RESP 20; TEMP 98.4
--- NOTE | 2019-04-07 04:50 | XR ---
EXAMINATION TYPE: XR chest 2V DATE OF EXAM: 04/07/2019 COMPARISON: 03/15/2016 HISTORY: Cough TECHNIQUE: FINDINGS: Heart and mediastinum are normal. Lungs are clear. Diaphragm is normal. Bony thorax appears normal. IMPRESSION: Normal chest. No change.
--- NOTE | 2019-04-07 05:01 | ED ---
URI HPI - General Chief Complaint: Upper Respiratory Infection Stated Complaint: Flu like symptoms Time Seen by Provider: 04/07/19 03:58 Source: patient Mode of arrival: ambulatory Limitations: no limitations - History of Present Illness Initial Comments: This patient is 58-year-old man who presents with upper respiratory symptoms that have recently worsened. He states that he had onset about 3 weeks ago of a little bit of cough, congestion, rhinorrhea. He states that he was taking NyQuil for this and he seemed to be doing fairly well. He states over the past day or so he started having fevers and chills, myalgias, and the cough has worsened. He was recently exposed to influenza he believes. MD Complaint: fever, cough -: days(s) Severity: severe Consistency: constant Improves With: nothing Worsens With: nothing Context: sick contacts Associated Symptoms: fever, myalgias, rhinorrhea, cough Treatments Prior to Arrival: none - Related Data Home Medications Medication Instructions Recorded Confirmed Atenolol [Tenormin] 50 mg PO DAILY 07/14/14 07/20/16 Lisinopril [Zestril] 10 mg PO DAILY 07/15/14 07/20/16 Pravastatin Sodium [Pravachol] 40 mg PO DAILY 07/15/14 07/20/16 Furosemide [Lasix] 40 mg PO DAILY 04/21/16 07/20/16 HYDROcodone/APAP 7.5-325MG [[place] 1 tab PO Q8H PRN 04/21/16 07/20/16 7.5-325] metFORMIN HCL [metFORMIN HCL ER] 750 mg PO BID 04/21/16 07/20/16 Previous Rx's Medication Instructions Recorded Hydrocodone/Acetaminophen [[place] 1 each PO Q6HR PRN #20 tab 10/01/16 5-325] Ibuprofen 600 mg PO TID #20 tablet 04/02/18 Baloxavir Marboxil [Xofluza] 80 mg PO ONCE #1 tablet 04/07/19 Allergies Allergy/AdvReac Type Severity Reaction Status Date / Time valsartan Allergy Itching Verified 04/07/19 03:54 Review of Systems ROS Statement: Those systems with pertinent positive or pertinent negative responses have been documented in the HPI. ROS Other: All systems not noted in ROS Statement are negative. Constitutional: Reports: fever, chills. Denies: weakness Respiratory: Reports: cough. 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 Mother Family Medical History: Cancer Additional Family Medical History / Comment(s): Mother at age 42 from breast cancer. Patient has 2 brothers and 2 sisters with no major medical problems besides one sister with MRSA General Exam Limitations: no limitations General appearance: alert, in no apparent distress Head exam: Present: atraumatic, normocephalic Eye exam: Present: normal appearance. Absent: scleral icterus, conjunctival injection ENT exam: Present: normal oropharynx Respiratory exam: Present: normal lung sounds bilaterally. Absent: respiratory distress, wheezes, rales, rhonchi, stridor Cardiovascular Exam: Present: regular rate, normal rhythm, normal heart sounds. Absent: systolic murmur, diastolic murmur, rubs, gallop GI/Abdominal exam: Present: soft. Absent: distended, tenderness, guarding, rebound Extremities exam: Present: normal inspection, normal capillary refill. Absent: pedal edema, calf tenderness Neurological exam: Present: alert Skin exam: Present: warm, dry, intact, normal color. Absent: rash Course Vital Signs 04/07/19 03:48 Temperature 98.4 F Pulse Rate 93 Respiratory 20 Rate Blood Pressure 187/95 Medical Decision Making - Lab Data Lab Results 04/07/19 Range/Units 04:05 Influenza Type A RNA Not Detected (Not Detectd) Influenza Type B (PCR) Detected H (Not Detectd) Disposition Clinical Impression: Influenza B Disposition: HOME SELF-CARE Condition: Fair Instructions (If sedation given, give patient instructions): Influenza (ED) Prescriptions: Baloxavir Marboxil [Xofluza] 80 mg PO ONCE #1 tablet Is patient prescribed a controlled substance at d/c from ED?: No Referrals: Antolin Garcia DO [Primary Care Provider] - 1-2 days
== END 2019-04-07 05:13 | disposition home or self-care (01) ==
LOC: EC 03:39
DX: J10.1 Influenza due to other identified influenza virus with other respiratory manifestations (principal); I25.10 Atherosclerotic heart disease of native coronary artery without angina pectoris; E11.9 Type 2 diabetes mellitus without complications; E78.5 Hyperlipidemia, unspecified; I10 Essential (primary) hypertension; G47.30 Sleep apnea, unspecified; Z88.8 Allergy status to other drugs, medicaments and biological substances; Z79.84 Long term (current) use of oral hypoglycemic drugs; Z79.899 Other long term (current) drug therapy; Z99.89 Dependence on other enabling machines and devices
CPT/HCPCS: 71046; 87502; 99283

== ENCOUNTER 2019-05-06 09:24 | Emergency (ER) | payer MEDICARE, OTHER ==
[2019-05-06 09:29] VITALS: TEMP 97.9
[2019-05-06] MEDS ORDERED: SODIUM CHLORIDE 0.9% 500 ML 500 ML IV ONE (09:40)
--- NOTE | 2019-05-06 09:47 | ED ---
ENT HPI - General Chief complaint: Dental/Oral Stated complaint: mouth swelling/pain Time Seen by Provider: 05/06/19 09:33 Source: patient, RN notes reviewed Mode of arrival: ambulatory Limitations: no limitations - History of Present Illness Initial comments: 59-year-old male presented to the emergency Department with chief complaint of left sided jaw, facial swelling. Patient states that this started yesterday after rinsing his mouth with Listerine after several minutes. He states he started feeling some burning sensation he thought it was just a fluke so he attempted to rinse again and states that the pain worsened. Patient states pain subsides someplace noted left worsening left-sided facial and jaw swelling. He's had prior dental extractions of the left he states he does not seem sores, lesions or any openings in the left lower aspect. Denies any neck pain or neck stiffness no facial trauma. Denies fevers or chills - Related Data Home Medications Medication Instructions Recorded Confirmed metFORMIN HCL [metFORMIN HCL ER] 750 mg PO BID 04/21/16 05/06/19 Alendronate Sodium [Fosamax] 70 mg PO MO 05/06/19 05/06/19 Atenolol [Tenormin] 50 mg PO DAILY 05/06/19 05/06/19 Diclofenac Sodium Gel [Voltaren 2 gm TOPICAL DAILY PRN 05/06/19 05/06/19 Gel] Ibuprofen 600 mg PO TID PRN 05/06/19 05/06/19 Lisinopril 40 mg PO DAILY 05/06/19 05/06/19 amLODIPine [Norvasc] 5 mg PO DAILY 05/06/19 05/06/19 Previous Rx's Medication Instructions Recorded Amoxicillin/Potassium Clav 1 tab PO Q12HR #20 tab 05/06/19 [Augmentin 875-125 Tablet] Allergies Allergy/AdvReac Type Severity Reaction Status Date / Time valsartan Allergy Itching Verified 05/06/19 10:05 Review of Systems ROS Statement: Those systems with pertinent positive or pertinent negative responses have been documented in the HPI. ROS Other: All systems not noted in ROS Statement are negative. 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 Mother Family Medical History: Cancer Additional Family Medical History / Comment(s): Mother at age 42 from breast cancer. Patient has 2 brothers and 2 sisters with no major medical pro blems besides one sister with MRSA General Exam Limitations: no limitations General appearance: alert, in no apparent distress Head exam: Present: atraumatic, normocephalic, normal inspection Eye exam: Present: normal appearance, PERRL, EOMI. Absent: scleral icterus, conjunctival injection, periorbital swelling ENT exam: Present: mucous membranes moist, TM's normal bilaterally, normal external ear exam. Absent: normal oropharynx (, No obvious oral abscess, there are missing dentition in the left lower but no signs of infection at this time.) Neck exam: Present: normal inspection. Absent: tenderness, meningismus, lymphadenopathy Respiratory exam: Present: normal lung sounds bilaterally. Absent: respiratory distress, wheezes, rales, rhonchi, stridor Cardiovascular Exam: Present: regular rate, normal rhythm, normal heart sounds. Absent: systolic murmur, diastolic murmur, rubs, gallop, clicks Course Vital Signs 05/06/19 05/06/19 09:26 11:02 Temperature 97.9 F Pulse Rate 69 58 L Respiratory 18 16 Rate Blood Pressure 198/117 171/98 O2 Sat by Pulse 98 97 Oximetry Medical Decision Making - Medical Decision Making CT of soft tissue neck, facial does not really evidence of abscess or any clinical reason for swelling. Labs unremarkable. This may be related to block salivary gland. Patient will be discharged on Augmentin, advised to start bin es and follow-up with ENT. - Lab Data Result diagrams: 05/06/19 09:47 05/06/19 09:47 Lab Results 05/06/19 05/06/19 05/06/19 Range/Units 09:47 09:47 09:47 WBC 6.2 (3.8-10.6) k/uL RBC 5.79 (4.30-5.90) m/uL Hgb 13.8 (13.0-17.5) gm/dL Hct 43.6 (39.0-53.0) % MCV 75.3 L (80.0-100.0) fL MCH 23.8 L (25.0-35.0) pg MCHC 31.6 (31.0-37.0) g/dL RDW 14.6 (11.5-15.5) % Plt Count 230 (150-450) k/uL Neutrophils % 45 % Lymphocytes % 43 % Monocytes % 4 % Eosinophils % 5 % Basophils % 1 % Neutrophils # 2.8 (1.3-7.7) k/uL Lymphocytes # 2.6 (1.0-4.8) k/uL Monocytes # 0.3 (0-1.0) k/uL Eosinophils # 0.3 (0-0.7) k/uL Basophils # 0.0 (0-0.2) k/uL Microcytosis Slight Sodium 142 (137-145) mmol/L Potassium 4.2 (3.5-5.1) mmol/L Chloride 106 (98-107) mmol/L Carbon Dioxide 26 (22-30) mmol/L Anion Gap 10 mmol/L BUN 17 (9-20) mg/dL Creatinine 1.00 (0.66-1.25) mg/dL Est GFR (CKD-EPI)AfAm >90 (>60 ml/min/1.73 sqM) Est GFR (CKD-EPI)NonAf 83 (>60 ml/min/1.73 sqM) Glucose 126 H (74-99) mg/dL Plasma Lactic Acid Alli 1.7 (0.7-2.0) mmol/L Calcium 9.7 (8.4-10.2) mg/dL Total Bilirubin 0.3 (0.2-1.3) mg/dL AST 23 (17-59) U/L ALT 19 (4-49) U/L Alkaline Phosphatase 72 (38-126) U/L Total Protein 7.3 (6.3-8.2) g/dL Albumin 4.4 (3.5-5.0) g/dL Amylase 89 (30-110) U/L Disposition Clinical Impression: Sialadenitis Disposition: HOME SELF-CARE Condition: Stable Instructions (If sedation given, give patient instructions): Sialoadenitis (ED) Additional Instructions: Please return to the Emergency Department if symptoms worsen or any other concerns. Prescriptions: Amoxicillin/Potassium Clav [Augmentin 875-125 Tablet] 1 tab PO Q12HR #20 tab Is patient prescribed a controlled substance at d/c from ED?: No Referrals: Antolin Garcia DO [Primary Care Provider] - 1-2 days Time of Disposition: 11:16
[2019-05-06 10:27] LABS: ALT 19 U/L (4-49); AST 23 U/L (17-59); African American GFR (CKD) >90 (>60 ml/min/1.73 sqM); Albumin 4.4 g/dL (3.5-5.0); Alkaline Phosphatase 72 U/L (38-126); Amylase 89 U/L (30-110); Anion Gap 10 mmol/L; Blood Urea Nitrogen 17 mg/dL (9-20); Calcium 9.7 mg/dL (8.4-10.2); Carbon Dioxide 26 mmol/L (22-30); Chloride 106 mmol/L (98-107); Glucose 126 mg/dL (74-99); Non-African American GFR(CKD) 83 (>60 ml/min/1.73 sqM); Potassium 4.2 mmol/L (3.5-5.1); Sodium 142 mmol/L (137-145); Total Bilirubin 0.3 mg/dL (0.2-1.3); Total Protein 7.3 g/dL (6.3-8.2)
[2019-05-06 10:30] LABS: Basophils % (A) 1 %; Eosinophils # (A) 0.3 k/uL (0-0.7); Eosinophils % (A) 5 %; HCT 43.6 % (39.0-53.0); HGB 13.8 gm/dL (13.0-17.5); Lymphocytes # (A) 2.6 k/uL (1.0-4.8); Lymphocytes % (A) 43 %; MCH 23.8 pg (25.0-35.0); MCHC 31.6 g/dL (31.0-37.0); MCV 75.3 fL (80.0-100.0); Mean Platelet Volume 7.4; Microcytosis Slight; Monocytes # (A) 0.3 k/uL (0-1.0); Monocytes % (A) 4 %; Neutrophils # (A) 2.8 k/uL (1.3-7.7); Neutrophils % (A) 45 %; Platelet Count 230 k/uL (150-450); RBC 5.79 m/uL (4.30-5.90); RDW 14.6 % (11.5-15.5); WBC 6.2 k/uL (3.8-10.6)
--- NOTE | 2019-05-06 11:11 | CT ---
EXAMINATION TYPE: CT soft tissue neck w con DATE OF EXAM: 05/06/2019 COMPARISON: None HISTORY: Swelling and pain CT DLP: 473.3 mGycm CONTRAST: CT scan of the neck is performed with IV Contrast, patient injected with 100 mL of Isovue 300. Contrast enhanced CT of the neck was performed from the skull base through the lung apices. Streak ar tifact from dental amalgam does limit evaluation of the oral structures. AIRWAY: The supraglottic, glottic, and subglottic portions of the airway appear patent and free of mass. SALIVARY GLANDS: The submandibular and parotid glands are free of mass or inflammatory process. THYROID GLAND: 8 mm hypoechoic nodule left thyroid lobe is nonspecific. LYMPH NODES: No adenopathy seen greater than 1cm. LUNG APICES: No nodule or mass is seen. OTHER: Vascular structures are patent. No significant degenerative change of the cervical spine. N o abscess seen. Mild mucosal thickening left maxillary sinus. IMPRESSION: 1. Mild soft tissue swelling left neck and facial region without evidence for abscess. Dental structu res are limited in evaluation given streak artifact from dental amalgam. No obvious abscess or bony d estructive process identified. 2. Subcentimeter hypoechoic nodule left thyroid lobe.
[2019-05-06 11:50] VITALS: BP 170/90; PULSE 60; RESP 18
== END 2019-05-06 11:49 | disposition home or self-care (01) ==
LOC: EC 09:24
DX: K11.20 Sialoadenitis, unspecified (principal); I25.10 Atherosclerotic heart disease of native coronary artery without angina pectoris; E11.9 Type 2 diabetes mellitus without complications; E78.5 Hyperlipidemia, unspecified; I10 Essential (primary) hypertension; G47.30 Sleep apnea, unspecified; M10.9 Gout, unspecified; Z99.89 Dependence on other enabling machines and devices; Z79.84 Long term (current) use of oral hypoglycemic drugs; Z79.899 Other long term (current) drug therapy; Z88.8 Allergy status to other drugs, medicaments and biological substances; Z98.890 Other specified postprocedural states
CPT/HCPCS: 99284 ×2; 36415; 80053; 82150; 83605; 85025; 70491; Q9967

== ENCOUNTER 2019-05-23 23:39 | Emergency (ER) | payer MEDICARE, OTHER ==
[2019-05-23 23:49] LABS: Glucose,Whole Blood 168 mg/dL (75-99)
[2019-05-24 00:03] VITALS: TEMP 98.1
[2019-05-24] MEDS ORDERED: metFORMIN 500 MG TAB PO STA (00:04)
[2019-05-24 00:19] VITALS: BP 167/87; PULSE 63; RESP 18
--- NOTE | 2019-05-24 00:30 | ED ---
General Adult HPI - General Chief complaint: Dizziness Stated complaint: hyperglycemia Time Seen by Provider: 05/23/19 23:42 Source: patient, EMS Mode of arrival: EMS Limitations: no limitations - History of Present Illness Initial comments: Leon is a 59-year-old woman who presents the ER today via ambulance for evaluation of not feeling well, hyperglycemia and hypertension. Patient reports that he ran out of his metformin and due to some miscommunication with his primary care office it wasn't filled on time, it was [facility] into [facility] on Friday however will take 7 days to fill it and he hasn't had any since . Patient reports that sugar was over 200 he is feeling very stressed was watching some youtube videos about the Coronavirus pandemic when he began feeling very stressed. Patient states that he checked his blood pressure was elevated and given that his blood pressures up her sugars up he decided to come the hospital for evaluation. Patient reports that his blood pressures been dropping since coming to the hospital is feeling better already. Denies chest pain palpitations focal neurologic deficits. - Related Data Home Medications Medication Instructions Recorded Confirmed metFORMIN HCL [metFORMIN HCL ER] 750 mg PO BID 04/21/16 05/06/19 Alendronate Sodium [Fosamax] 70 mg PO MO 05/06/19 05/06/19 Atenolol [Tenormin] 50 mg PO DAILY 05/06/19 05/06/19 Diclofenac Sodium Gel [Voltaren 2 gm TOPICAL DAILY PRN 05/06/19 05/06/19 Gel] Ibuprofen 600 mg PO TID PRN 05/06/19 05/06/19 Lisinopril 40 mg PO DAILY 05/06/19 05/06/19 amLODIPine [Norvasc] 5 mg PO DAILY 05/06/19 05/06/19 Previous Rx's Medication Instructions Recorded Amoxicillin/Potassium Clav 1 tab PO Q12HR #20 tab 05/06/19 [Augmentin 875-125 Tablet] metFORMIN HCL [Glucophage] 500 mg PO BID #28 tab 05/24/19 Allergies Allergy/AdvReac Type Severity Reaction Status Date / Time valsartan Allergy Itching Verified 05/23/19 23:57 Review of Systems ROS Statement: Those systems with pertinent positive or pertinent negative responses have been documented in the HPI. ROS Other: All systems not noted in ROS Statement are negative. 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 Mother Family Medical History: Cancer Additional Family Medical History / Comment(s): Mother at age 42 from breast cancer. Patient has 2 brothers and 2 sisters with no major medical problems besides one sister with MRSA General Exam - General Exam Comments Initial Comments: Physical Exam GENERAL: Patient is well-developed and well-nourished. Patient is nontoxic and well-hydrated and is in no distress. HENT: Normocephalic, Atraumatic. EYES: PERRL, EOMI PULMONARY: Unlabored respirations. CARDIOVASCULAR: RRR Warm and well perfused extremities ABDOMEN: Non-distended SKIN: No rashes or bruising : Deferred NEUROLOGIC: Alert and oriented Normal speech Normal gait MUSCULOSKELETAL: Moving all extremities with no apparent injury PSYCHIATRIC: No SI/HI Limitations: no limitations Course Vital Signs 05/23/19 05/24/19 23:42 00:19 Temperature 98.1 F Pulse Rate 52 L 63 Respiratory 19 18 Rate Blood Pressure 190/99 167/87 O2 Sat by Pulse 97 98 Oximetry Medical Decision Making - Medical Decision Making The patient was seen and evaluated history is obtained from patient 59-year-old gentleman with diabetes currently out of his metformin presenting with HTN and hyperglycemia IVF infusling from EMS PO Metformin ordered Blood pressure improved without remain, patient remains asymptomatic comfortable plan for discharge home. I discussed with the patient that I will prescribe him metformin that is on the $4 list at [facility] he can get that to cover him for the next week while he awaits his three-month delivery for [facility]. - Lab Data Lab Results 05/23/19 Range/Units 23:47 POC Glucose (mg/dL) 168 H (75-99) mg/dL POC [employer] Julio C Lomas Disposition Clinical Impression: Hyperglycemia Disposition: HOME SELF-CARE Condition: Stable Instructions (If sedation given, give patient instructions): Diabetic Hyperglycemia (ED) Additional Instructions: Resume Metformin, check sugars regularly Follow up with primary care physician for referral to extension educator Return to the ER via any worsening symptoms Prescriptions: metFORMIN HCL [Glucophage] 500 mg PO BID #28 tab Is patient prescribed a controlled substance at d/c from ED?: No Referrals: Antolin Garcia DO [Primary Care Provider] - 1-2 days
== END 2019-05-24 00:45 | disposition home or self-care (01) ==
LOC: EC 23:39
DX: E11.65 Type 2 diabetes mellitus with hyperglycemia (principal); I10 Essential (primary) hypertension; Z76.0 Encounter for issue of repeat prescription; I25.10 Atherosclerotic heart disease of native coronary artery without angina pectoris; E78.5 Hyperlipidemia, unspecified; G47.30 Sleep apnea, unspecified; Z79.84 Long term (current) use of oral hypoglycemic drugs; Z79.899 Other long term (current) drug therapy; Z88.8 Allergy status to other drugs, medicaments and biological substances; Z99.89 Dependence on other enabling machines and devices
CPT/HCPCS: 36415; 99284

== ENCOUNTER 2019-11-06 11:37 | Emergency (ER) | payer MEDICARE ==
[2019-11-06] MEDS ORDERED: KETOROLAC 15 MG/ML 1 ML VIAL IVP STA (12:59)
[2019-11-06] MEDS ORDERED: MORPHINE SULFATE 4 MG/ML SYRINGE IV STA (12:59)
[2019-11-06] MEDS ORDERED: LABETALOL 5 MG/ML VIAL MDV IVP STA (12:59)
[2019-11-06] MEDS ORDERED: SODIUM CHLORIDE 0.9% 1,000 ML IV STA (12:59)
[2019-11-06] MEDS ORDERED: ONDANSETRON 4 MG/2 ML VIAL IVP STA (12:59)
[2019-11-06 13:00] VITALS: RESP 20
--- NOTE | 2019-11-06 13:01 | ED ---
Abdominal Pain HPI - General Source: patient, RN notes reviewed, old records reviewed Mode of arrival: ambulatory Limitations: no limitations <Albertina Valverde - Last Filed: 11/06/19 15:33> <Jennifer Steward - Last Filed: 11/06/19 16:27> - General Chief Complaint: Abdominal Pain Stated Complaint: Abd/Neck Pain Time Seen by Provider: 11/06/19 12:17 - History of Present Illness Initial Comments: 59-year-old male presents emergency department today with multiple complaints complaining of neck spasm and pain, lower abdominal pain for the past 3 days. He denies any changes in stools or urination. Patient reports that he has muscle spasms in his neck pain range of motion. He also was found to be extremely hypertensive upon arriving to emergency department blood pressure 238/110. He does take his blood pressure medications today. Denies chest pain reports occasional shortness of breath. Patient states that he has had no significant nausea. (Albertina Valverde) - Related Data Home Medications Medication Instructions Recorded Confirmed metFORMIN HCL [metFORMIN HCL ER] 750 mg PO BID 04/21/16 05/06/19 Alendronate Sodium [Fosamax] 70 mg PO MO 05/06/19 05/06/19 Diclofenac Sodium Gel [Voltaren 2 gm TOPICAL DAILY PRN 05/06/19 05/06/19 Gel] Ibuprofen 600 mg PO TID PRN 05/06/19 05/06/19 amLODIPine [Norvasc] 5 mg PO DAILY 05/06/19 05/06/19 atenoloL [Tenormin] 50 mg PO DAILY 05/06/19 05/06/19 lisinopriL 40 mg PO DAILY 05/06/19 05/06/19 Previous Rx's Medication Instructions Recorded Amoxicillin/Potassium Clav 1 tab PO Q12HR #20 tab 05/06/19 [Augmentin 875-125 Tablet] metFORMIN HCL [Glucophage] 500 mg PO BID #28 tab 05/24/19 Allergies Allergy/AdvReac Type Severity Reaction Status Date / Time valsartan Allergy Itching Verified 11/06/19 11:41 Review of Systems ROS Other: All systems not noted in ROS Statement are negative. <Albertina Valverde - Last Filed: 11/06/19 15:33> ROS Other: All systems not noted in ROS Statement are negative. <Jennifer Steward - Last Filed: 11/06/19 16:27> ROS Statement: Those systems with pertinent positive or pertinent negative responses have been documented in the HPI. 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 Mother Family Medical History: Cancer Additional Family Medical History / Comment(s): Mother at age 42 from breast cancer. Patient has 2 brothers and 2 sisters with no major medical problems besides one sister with MRSA <Albertina Valverde - Last Filed: 11/06/19 15:33> General Exam Limitations: no limitations General appearance: alert, in no apparent distress Head exam: Present: atraumatic, normocephalic, normal inspection Eye exam: Present: normal appearance, PERRL, EOMI. Absent: scleral icterus, conjunctival injection, periorbital swelling ENT exam: Present: normal exam, mucous membranes moist Neck exam: Present: normal inspection. Absent: tenderness, meningismus, lymphadenopathy Respiratory exam: Present: normal lung sounds bilaterally. Absent: respiratory distress, wheezes, rales, rhonchi, stridor Cardiovascular Exam: Present: regular rate, normal rhythm, normal heart sounds. Absent: systolic murmur, diastolic murmur, rubs, gallop, clicks GI/Abdominal exam: Present: soft, tenderness (Minimal lower abdominal tenderness), normal bowel sounds. Absent: distended, guarding, rebound, rigid Extremities exam: Present: normal inspection, full ROM, normal capillary refill. Absent: tenderness, pedal edema, joint swelling, calf tenderness Back exam: Present: normal inspection Neurological exam: Present: alert, oriented X3, CN II-XII intact Psychiatric exam: Present: normal affect, normal mood Skin exam: Present: warm, dry, intact, normal color. Absent: rash <AshleyAlbertina damon - Last Filed: 11/06/19 15:33> - General Exam Comments Initial Comments: 59-year-old male. No distress. (Albertina Valverde) Course Vital Signs 11/06/19 11/06/19 11/06/19 11:38 12:58 13:30 Temperature 98.5 F Pulse Rate 66 71 70 Respiratory 18 20 20 Rate Blood Pressure 223/114 205/100 174/94 O2 Sat by Pulse 99 98 97 Oximetry 11/06/19 11/06/19 11/06/19 14:00 15:05 16:00 Temperature 98.0 F Pulse Rate 74 54 L 70 Respiratory 20 20 20 Rate Blood Pressure 168/96 194/104 162/89 O2 Sat by Pulse 98 98 98 Oximetry Medical Decision Making - Lab Data Result diagrams: 11/06/19 13:03 11/06/19 13:03 - Radiology Data Radiology results: report reviewed <Albertina Valverde - Last Filed: 11/06/19 15:33> - Lab Data Result diagrams: 11/06/19 13:03 11/06/19 13:03 <Jennifer Steward - Last Filed: 11/06/19 16:27> - Medical Decision Making Patient is a 59-year-old male presents return today for concerns for lower abdominal pain and some pain in the back. Also claims of neck pain with turning his head from his CPAP machine. Labs reveal normal. On reevaluation continue to be hypertensive and did concern for possible AAA with his history of compla ints and pelvis will pressure. Patient will have CT KO. Sending the case to Dr. Nichelle kwan 3:30pm. (Albertina Valverde) The patient was signed out to me. I did review his lab studies and imaging. I did discuss results with the patient. Blood pressures improved to 160 systolic. I did recommend that he continue on his current regimen. Follow up with his primary care physician and nephrology as he does have persistent hypertension. I also recommended pain management for his chronic pain. Patient feels well at this time. Will be discharged home to return for any new or worsening symptoms. (Jennifer Steward) - Lab Data Lab Results 11/06/19 11/06/19 11/06/19 Range/Units 13:03 13:03 13:03 WBC 7.1 (3.8-10.6) k/uL RBC 5.99 H (4.30-5.90) m/uL Hgb 14.0 (13.0-17.5) gm/dL Hct 45.0 (39.0-53.0) % MCV 75.1 L (80.0-100.0) fL MCH 23.4 L (25.0-35.0) pg MCHC 31.1 (31.0-37.0) g/dL RDW 14.9 (11.5-15.5) % Plt Count 228 (150-450) k/uL Neutrophils % 56 % Lymphocytes % 36 % Monocytes % 4 % Eosinophils % 3 % Basophils % 1 % Neutrophils # 3.9 (1.3-7.7) k/uL Lymphocytes # 2.5 (1.0-4.8) k/uL Monocytes # 0.3 (0-1.0) k/uL Eosinophils # 0.2 (0-0.7) k/uL Basophils # 0.0 (0-0.2) k/uL Microcytosis Slight PT 9.6 (9.0-12.0) sec INR 0.9 (<1.2) APTT 24.9 (22.0-30.0) sec Sodium (137-145) mmol/L Potassium (3.5-5.1) mmol/L Chloride (98-107) mmol/L Carbon Dioxide (22-30) mmol/L Anion Gap mmol/L BUN (9-20) mg/dL Creatinine (0.66-1.25) mg/dL Est GFR (CKD-EPI)AfAm (>60 ml/min/1.73 sqM) Est GFR (CKD-EPI)NonAf (>60 ml/min/1.73 sqM) Glucose (74-99) mg/dL Plasma Lactic Acid Alli (0.7-2.0) mmol/L Calcium (8.4-10.2) mg/dL Total Bilirubin (0.2-1.3) mg/dL AST (17-59) U/L ALT (4-49) U/L Alkaline Phosphatase (38-126) U/L Troponin I (0.000-0.034) ng/mL Total Protein (6.3-8.2) g/dL Albumin (3.5-5.0) g/dL Amylase (30-110) U/L Lipase (23-300) U/L Urine Color Yellow Urine Appearance Clear (Clear) Urine pH 7.0 (5.0-8.0) Ur Specific [place] 1.010 (1.001-1.035) Urine Protein Negative (Negative) Urine Glucose (UA) Negative (Negative) Urine Ketones Negative (Negative) Urine Blood Negative (Negative) Urine Nitrite Negative (Negative) Urine Bilirubin Negative (Negative) Urine Urobilinogen <2.0 (<2.0) mg/dL Ur Leukocyte Esterase Negative (Negative) 11/06/19 11/06/19 11/06/19 Range/Units 13:03 13:03 13:03 WBC (3.8-10.6) k/uL RBC (4.30-5.90) m/uL Hgb (13.0-17.5) gm/dL Hct (39.0-53.0) % MCV (80.0-100.0) fL MCH (25.0-35.0) pg MCHC (31.0-37.0) g/dL RDW (11.5-15.5) % Plt Count (150-450) k/uL Neutrophils % % Lymphocytes % % Monocytes % % Eosinophils % % Basophils % % Neutrophils # (1.3-7.7) k/uL Lymphocytes # (1.0-4.8) k/uL Monocytes # (0-1.0) k/uL Eosinophils # (0-0.7) k/uL Basophils # (0-0.2) k/uL Microcytosis PT (9.0-12.0) sec INR (<1.2) APTT (22.0-30.0) sec Sodium 140 (137-145) mmol/L Potassium 4.2 (3.5-5.1) mmol/L Chloride 107 (98-107) mmol/L Carbon Dioxide 24 (22-30) mmol/L Anion Gap 9 mmol/L BUN 17 (9-20) mg/dL Creatinine 1.29 H (0.66-1.25) mg/dL Est GFR (CKD-EPI)AfAm 70 (>60 ml/min/1.73 sqM) Est GFR (CKD-EPI)NonAf 61 (>60 ml/min/1.73 sqM) Glucose 102 H (74-99) mg/dL Plasma Lactic Acid Alli 1.0 (0.7-2.0) mmol/L Calcium 9.5 (8.4-10.2) mg/dL Total Bilirubin 0.4 (0.2-1.3) mg/dL AST 22 (17-59) U/L ALT 19 (4-49) U/L Alkaline Phosphatase 54 (38-126) U/L Troponin I <0.012 (0.000-0.034) ng/mL Total Protein 6.9 (6.3-8.2) g/dL Albumin 4.4 (3.5-5.0) g/dL Amylase 82 (30-110) U/L Lipase 164 (23-300) U/L Urine Color Urine Appearance (Clear) Urine pH (5.0-8.0) Ur Specific [place] (1.001-1.035) Urine Protein (Negative) Urine Glucose (UA) (Negative) Urine Ketones (Negative) Urine Blood (Negative) Urine Nitrite (Negative) Urine Bilirubin (Negative) Urine Urobilinogen (<2.0) mg/dL Ur Leukocyte Esterase (Negative) - Radiology Data Interpreted by me: Chest x-ray significant for acute process. KUB shows normal bowel gas pattern. (Albertina Valverde) Disposition <Hattie Valverdeily - Last Filed: 11/06/19 15:33> Is patient prescribed a controlled substance at d/c from ED?: No Time of Disposition: 16:25 <Jennifer Steward - Last Filed: 11/06/19 16:27> Clinical Impression: Abdominal pain, Hypertension Disposition: HOME SELF-CARE Condition: Stable Instructions (If sedation given, give patient instructions): Hypertension (ED) Additional Instructions: Please follow-up with a food critic and your primary care doctor in regards to your persistent hypertension. Take her medications as directed. Return to the emergency room for any new or worsening symptoms Referrals: Antolin Garcia DO [Primary Care Provider] - 1-2 days Fausto Enriquez MD [STAFF PHYSICIAN] - 1-2 days
[2019-11-06 13:16] LABS: Basophils % (A) 1 %; Eosinophils # (A) 0.2 k/uL (0-0.7); Eosinophils % (A) 3 %; Lymphocytes # (A) 2.5 k/uL (1.0-4.8); Lymphocytes % (A) 36 %; MCH 23.4 pg (25.0-35.0); MCHC 31.1 g/dL (31.0-37.0); MCV 75.1 fL (80.0-100.0); Mean Platelet Volume 7.1; Microcytosis Slight; Monocytes # (A) 0.3 k/uL (0-1.0); Monocytes % (A) 4 %; Neutrophils # (A) 3.9 k/uL (1.3-7.7); Neutrophils % (A) 56 %; Platelet Count 228 k/uL (150-450); RBC 5.99 m/uL (4.30-5.90); RDW 14.9 % (11.5-15.5); WBC 7.1 k/uL (3.8-10.6)
[2019-11-06 13:26] LABS: Albumin 4.4 g/dL (3.5-5.0); Calcium 9.5 mg/dL (8.4-10.2); Potassium 4.2 mmol/L (3.5-5.1); Total Bilirubin 0.4 mg/dL (0.2-1.3); Total Protein 6.9 g/dL (6.3-8.2)
[2019-11-06 13:32] LABS: INR 0.9 (<1.2); Partial Thromboplastin Time 24.9 sec (22.0-30.0); Prothrombin Time 9.6 sec (9.0-12.0)
[2019-11-06 13:36] LABS: Appearance,Urine Clear (Clear); Color,Urine Yellow; Glucose,Urine (UA) Negative (Negative); Ketones,Urine Negative (Negative); Protein,Urine Negative (Negative)
[2019-11-06 13:37] LABS: Bilirubin,Urine Negative (Negative); Blood,Urine Negative (Negative); Leukocyte Esterase,Urine Negative (Negative); Nitrite,Urine Negative (Negative); Urobilinogen,Urine <2.0 mg/dL (<2.0)
--- NOTE | 2019-11-06 14:36 | XR ---
EXAMINATION TYPE: XR chest 2V DATE OF EXAM: 11/06/2019 COMPARISON: 04/07/2019 HISTORY: Chest pain TECHNIQUE: FINDINGS: Heart and mediastinum are normal. Lungs are clear. Diaphragm is normal. Bony thorax appears normal. IMPRESSION: Normal chest. No change.
--- NOTE | 2019-11-06 14:39 | XR ---
EXAMINATION TYPE: XR KUB DATE OF EXAM: 11/06/2019 COMPARISON: NONE HISTORY: Abdominal pain TECHNIQUE: 2 views FINDINGS: 2 views upright were obtained and show no sign of intestinal obstruction or pneumoperitoneu m. Fecal pattern appears normal. Lung bases are clear. There are no pathologic calcifications over th e kidneys. There is no evidence of a mass. IMPRESSION: Nonacute abdomen.
[2019-11-06] MEDS ORDERED: hydrALAZINE HCL 20 MG/ML 1 ML VIAL IVP STA (14:56)
--- NOTE | 2019-11-06 15:55 | CT ---
EXAMINATION TYPE: CT angio thor/abd pel aorta DATE OF EXAM: 11/06/2019 COMPARISON: None HISTORY: generalized abdominal pain, hypertension CT DLP: 2281.8 mGycm Automated exposure control for dose reduction was used. CONTRAST: Performed without and with IV Contrast, patient injected with 100 mL of Isovue 370. Images were obtained from the thoracic inlet to the floor the pelvis without and subsequently with IV contrast. There are 3-D post processed images. The lungs are clear of consolidation. There is mild subsegmental atelectasis left lung base. There is no mediastinal adenopathy. There are no hilar masses. Heart size is normal. Thoracic aorta is intact . There is no aneurysm or dissection. Pulmonary arteries appear normal with no sign of a filling defe ct. Liver spleen pancreas gallbladder stomach appear intact. Bile ducts are not dilated. There is no adre nal mass. Kidneys show satisfactory contrast opacification. There is no hydronephrosis. Ureters are n ot dilated. Bladder distends smoothly. There is prostatic calcification. There is no inguinal hernia. Prostate is enlarged and measures 4.6 cm. The appendix appears normal. There is no mesenteric edema. There is no ascites or free air. Abdominal aorta appears normal. There is normal contrast opacification of the celiac artery and super ior mesenteric artery and renal arteries. There is normal contrast opacification of the iliac and fem oral arteries. There is no evidence of hemodynamic stenosis. There is no evidence of aneurysm or diss ection. Thoracic and lumbar vertebra show normal spacing and alignment. There is no compression fract ure. There is degenerative spurring at L5-S1 anteriorly. The bony thorax appears intact. Pelvis is in tact. IMPRESSION: Negative CT angiogram of the chest abdomen pelvis.
[2019-11-06 16:15] VITALS: BP 162/89; PULSE 70; TEMP 98
== END 2019-11-06 16:54 | disposition home or self-care (01) ==
LOC: EC 11:37
DX: R10.30 Lower abdominal pain, unspecified (principal); I10 Essential (primary) hypertension; E11.9 Type 2 diabetes mellitus without complications; G89.29 Other chronic pain; M54.2 Cervicalgia; M54.9 Dorsalgia, unspecified; G47.30 Sleep apnea, unspecified; I25.10 Atherosclerotic heart disease of native coronary artery without angina pectoris; Z79.84 Long term (current) use of oral hypoglycemic drugs; Z79.83 Long term (current) use of bisphosphonates; Z79.899 Other long term (current) drug therapy; Z88.8 Allergy status to other drugs, medicaments and biological substances; Z99.89 Dependence on other enabling machines and devices
CPT/HCPCS: 36415; 93005; 80053; 82150; 83605; 83690; 84484; 85025; 85610; 85730; 81003; 71046; 74018; 71275; 74174; 99285; 96374; 96375 ×4; 96361 ×2; J2270; J0360; J2405; J1885; Q9967

== ENCOUNTER 2021-04-11 09:12 | Emergency (ER) | payer MEDICARE, OTHER ==
[2021-04-11] MEDS ORDERED: SODIUM CHLORIDE 0.9% 1,000 ML IV STA (10:54)
[2021-04-11 11:18] VITALS: RESP 16; TEMP 98.2
--- NOTE | 2021-04-11 11:19 | ED ---
Back Pain HPI - General Chief Complaint: Back Pain/Injury Stated Complaint: back pain Time Seen by Provider: 04/11/21 10:37 - History of Present Illness Initial Comments: Patient is a 60-year-old male with a past medical history of chronic back pain status post laminectomy 2 (1996 and 2000) who presents with lower back pain. Patient states that he is a retired copy center specialist and experienced a back injury 26 years ago which caused him to retire. Patient reports he has experienced constant back pain since the injury. Recent injury or trauma. He states that after his surgeries continued to have back pain, refractory to medication and physical therapy. He mentions that he has been avoiding the doctor as he does not want to have another surgery. Currently, patient rates his pain 10/10 in severity, constant and aching in nature. The pain is along the lumbar and sacral vertebrae. Pain is increased with lumbar rotation to the left and right, with most exacerbation when left rotation. Laying prone relieves some pain. He petra es chest pain, SOB, fever/chills, neck pain, leg/groin pain/paresthesias/numbness, and urinary incontinence/retention. - Related Data Home Medications Medication Instructions Recorded Confirmed metFORMIN HCL [metFORMIN HCL ER] 750 mg PO BID 04/21/16 05/06/19 Alendronate Sodium [Fosamax] 70 mg PO MO 05/06/19 05/06/19 Diclofenac Sodium Gel [Voltaren 2 gm TOPICAL DAILY PRN 05/06/19 05/06/19 Gel] Ibuprofen 600 mg PO TID PRN 05/06/19 05/06/19 amLODIPine [Norvasc] 5 mg PO DAILY 05/06/19 05/06/19 atenoloL [Tenormin] 50 mg PO DAILY 05/06/19 05/06/19 lisinopriL 40 mg PO DAILY 05/06/19 05/06/19 Previous Rx's Medication Instructions Recorded Amoxicillin/Potassium Clav 1 tab PO Q12HR #20 tab 05/06/19 [Augmentin 875-125 Tablet] metFORMIN HCL [Glucophage] 500 mg PO BID #28 tab 05/24/19 Allergies Allergy/AdvReac Type Severity Reaction Status Date / Time valsartan Allergy Itching Verified 11/06/19 11:41 Review of Systems ROS Statement: Those systems with pertinent positive or pertinent negative responses have been documented in the HPI. ROS Other: All systems not noted in ROS Statement are negative. 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 Mother Family Medical History: Cancer Additional Family Medical History / Comment(s): Mother at age 42 from breast cancer. Patient has 2 brothers and 2 sisters with no major medical problems besides one sister with MRSA General Exam General appearance: alert, in no apparent distress Head exam: Present: atraumatic, normocephalic, normal inspection Eye exam: Present: normal appearance, PERRL, EOMI. Absent: scleral icterus, conjunctival injection, periorbital swelling Neck exam: Present: normal inspection. Absent: tenderness, meningismus, lymphadenopathy Respiratory exam: Present: normal lung sounds bilaterally. Absent: respiratory distress, wheezes, rales, rhonchi, stridor Cardiovascular Exam: Present: regular rate, normal rhythm, normal heart sounds. Absent: systolic murmur, diastolic murmur, rubs, gallop, clicks GI/Abdominal exam: Present: soft, normal bowel sounds. Absent: distended, tenderness, guarding, rebound, rigid Back exam: Absent: full ROM (right and left lumbar rotation limited due to pain), tenderness, CVA tenderness (R), CVA tenderness (L), muscle spasm, paraspinal tenderness, vertebral tenderness, rash noted Neurological exam: Present: alert, oriented X3, CN II-XII intact Psychiatric exam: Present: normal affect, normal mood Skin exam: Present: warm, dry, intact, normal color. Absent: rash Course Vital Signs 04/11/21 11:13 Temperature 98.2 F Pulse Rate 56 L Respiratory 16 Rate Blood Pressure 177/86 O2 Sat by Pulse 97 Oximetry Medical Decision Making - Medical Decision Making Is a 60-year-old male with chronic back pain. The patient looks well, has been walking around in the room. Lumbosacral XR reveals degenerative disc disease and facet arthropathy. No acute abnormality. Patient reports that per Medicare he can only get a back brace every 4 years. He states that he is going to take the XR to his primary care provider Dr. Peter for back brace prescription. Patient will be discharged with XR on CD Disposition Clinical Impression: Degenerative disc disease, lumbar Disposition: HOME SELF-CARE Condition: Good Additional Instructions: Patient to return to ER if there is uncontrolled back pain, tingling/numbness in the groin, urinary incontinence, or urinary retention. Is patient prescribed a controlled substance at d/c from ED?: No Referrals: Antolin Garcia DO [Primary Care Provider] - 1-2 days
--- NOTE | 2021-04-11 11:32 | XR ---
Lumbar sacral spine HISTORY: Low back pain 5 views of lumbosacral spine correlated prior exam 10/06/2017 Lumbar vertebral bodies show stable height, alignment, and bone mineralization. No evident spondyloly sis. Loss of disc height is present at L4-5, L5-S1. Sclerosis is present in the posterior elements. M inimal anterolisthesis grade 1 L4-5 is again noted. There is mild multilevel spondylosis. IMPRESSION: Degenerative disc disease and facet arthropathy. No acute abnormality.
[2021-04-11 12:44] VITALS: BP 160/80; PULSE 60
== END 2021-04-11 12:43 | disposition home or self-care (01) ==
LOC: EC 09:12
DX: M51.36 Other intervertebral disc degeneration, lumbar region (principal); E11.9 Type 2 diabetes mellitus without complications; I10 Essential (primary) hypertension; I25.10 Atherosclerotic heart disease of native coronary artery without angina pectoris; Z88.8 Allergy status to other drugs, medicaments and biological substances; Z79.899 Other long term (current) drug therapy; Z79.84 Long term (current) use of oral hypoglycemic drugs
CPT/HCPCS: 72110; 99283

== ENCOUNTER 2021-08-07 17:01 | Emergency (ER) | payer MEDICARE, OTHER ==
[2021-08-07 17:05] VITALS: BP 162/91; PULSE 76; RESP 18; TEMP 98.3
--- NOTE | 2021-08-07 18:32 | XR ---
EXAMINATION TYPE: XR knee complete RT DATE OF EXAM: 08/07/2021 6:22 PM INDICATION: Patient age:Male; 61 years old; Reason for study: right knee pain; COMPARISON: None. TECHNIQUE: The Right knee(s) was examined in 3 projections. FINDINGS: No evidence of any acute osseous pathology, joint space narrowing, soft tissue swelling, or joint effusion is noted. Osteophyte in the superior and inferior aspect of patella. Mild tibial pl ateau osteophyte formation. IMPRESSION: 1. No acute osseous pathology. 2. Mild tricompartmental osteoarthritic changes.
== END 2021-08-07 20:07 | disposition left against medical advice (07) ==
LOC: EC 17:01
DX: Z53.21 Procedure and treatment not carried out due to patient leaving prior to being seen by health care provider (principal); S89.90XA Unspecified injury of unspecified lower leg, initial encounter; X58.XXXA Exposure to other specified factors, initial encounter
CPT/HCPCS: 99499

== ENCOUNTER 2022-04-20 18:08 | Emergency (ER) | payer MEDICARE, OTHER ==
[2022-04-20 18:26] VITALS: BP 151/75; PULSE 51; RESP 18; TEMP 98.2
[2022-04-20] MEDS ORDERED: KETOROLAC 15 MG/ML 1 ML VIAL IM STA (18:59)
[2022-04-20] MEDS ORDERED: HYDROcodone/APAP 5-325MG 1 EACH TAB PO STA (18:59)
--- NOTE | 2022-04-20 19:02 | ED ---
Lower Extremity Injury HPI - General Chief Complaint: Extremity Injury, Lower Stated Complaint: rt knee pain & edema Time Seen by Provider: 04/20/22 18:48 Source: patient, RN notes reviewed, old records reviewed Mode of arrival: ambulatory Limitations: no limitations - History of Present Illness Initial Comments: Pleasant well-appearing 61-year-old male presents ambulatory to the emergency room with complaints of right knee pain for the past 2 months. He states feels similar to when he had a meniscus tear in his left. He's had problems getting follow-up with orthopedics due to outstanding bills. He states has had multiple back surgeries and left knee surgery in the past. MD Complaint: knee injury (knee pain no injury) -: month(s) (2) Severity scale (1-10): 10 Worsens With: palpation - Related Data Home Medications Medication Instructions Recorded Confirmed metFORMIN HCL [metFORMIN HCL ER] 750 mg PO BID 04/21/16 05/06/19 Alendronate Sodium [Fosamax] 70 mg PO MO 05/06/19 05/06/19 Diclofenac Sodium Gel [Voltaren 2 gm TOPICAL DAILY PRN 05/06/19 05/06/19 Gel] Ibuprofen 600 mg PO TID PRN 05/06/19 05/06/19 amLODIPine [Norvasc] 5 mg PO DAILY 05/06/19 05/06/19 atenoloL [Tenormin] 50 mg PO DAILY 05/06/19 05/06/19 lisinopriL 40 mg PO DAILY 05/06/19 05/06/19 Previous Rx's Medication Instructions Recorded Amoxicillin/Potassium Clav 1 tab PO Q12HR #20 tab 05/06/19 [Augmentin 875-125 Tablet] metFORMIN HCL [Glucophage] 500 mg PO BID #28 tab 05/24/19 Allergies Allergy/AdvReac Type Severity Reaction Status Date / Time valsartan Allergy Itching Verified 04/20/22 18:27 Review of Systems ROS Statement: Those systems with pertinent positive or pertinent negative responses have been documented in the HPI. ROS Other: All systems not noted in ROS Statement are negative. 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 Mother Family Medical History: Cancer Additional Family Medical History / Comment(s): Mother at age 42 from breast cancer. Patient has 2 brothers and 2 sisters with no major medical problems besides one sister with MRSA General Exam Limitations: no limitations General appearance: alert, in no apparent distress Head exam: Present: atraumatic, normocephalic, normal inspection Eye exam: Present: normal appearance Respiratory exam: Absent: respiratory distress Cardiovascular Exam: Present: bradycardia Right Knee exam: Present: tenderness, swelling, effusion, full knee extension. Absent: abrasion, laceration, deformity, crepitus, dislocation Lower Leg exam: Present: swelling. Absent: tenderness, ecchymosis, erythema, palpable cord, Homans' sign Ankle exam: Absent: tenderness Neurovascular tendon exam: Absent: extremity cold to touch, pallor Neurological exam: Present: alert, oriented X3 Psychiatric exam: Present: normal affect, normal mood Skin exam: Present: warm, dry, normal color. Absent: cyanosis, diaphoretic Course Vital Signs 04/20/22 18:22 Temperature 98.2 F Pulse Rate 51 L Respiratory 18 Rate Blood Pressure 151/75 O2 Sat by Pulse 98 Oximetry Medical Decision Making - Medical Decision Making Patient refusing x-ray. Denies trauma. No fevers, no concern for septic joint. Patient ambulatory with a steady gait. He is requesting pain medication and was given [place] in the emergency room along with a shot of Toradol. He was advised to follow-up with orthopedics. I did explain that he should rest and ice it and elevate and wear compression wrap. Follow-up with orthopedics for continuation of care. Case discussed with Dr. Chambers. Was pt. sent in by a medical professional or institution? @ -no Did you speak to anyone other than the patient for history? @ -no Did you review nursing and triage notes? @ -yes i agree Were old charts reviewed? @ -no Differential Diagnosis? @ -Effusion, fracture, dislocation, admit to this injury, septic joint What testing was considered but not performed? (CT, X-rays, U/S, labs)? Why? @ xr considered however patient refused What meds were considered but not given? Why? @ -none Did you discuss the management of the patient with other professionals? @ -no Did you reconcile home meds? @ -no Was smoking cessation discussed for >3mins.? @ -no Was critical care preformed (if so, how long)? @ -no Were there social determinants of health that impacted care today? How? (Homelessness, low income, unemployed, alcoholism, drug addiction, transportation, low edu. Level, literacy, decrease access to med. care, alf, rehab)? @ -Difficulty accessing medical care to orthopedics due to outstanding bill Was there de-escalation of care discussed even if they declined? (Discuss DNR or withdrawal of care, Hospice)? @ -no What co-morbidities impacted this encounter? (DM, HTN, Smoking, COPD, CAD, Cancer, CVA, Hep., AIDS, mental health diagnosis, sleep apnea, morbid obesity)? @ -History of diabetes, hypertension, coronary artery disease, back surgeries Was patient admitted / discharged? @ -Discharged Undiagnosed new problem with uncertain prognosis? @ -[none] Drug Therapy requiring intensive monitoring for toxicity (Heparin, Nitro, Insulin, Cardizem)? @ -no Were any procedures done? @ -no Diagnosis/symptom? @ -Internal derangement right knee Acute, or Chronic, or Acute on Chronic? @ -Acute on chronic Uncomplicated (without systemic symptoms) or Complicated (systemic symptoms)? @ -Uncomplicated Side effects of treatment? @ -[none] Exacerbation, Progression, or Severe Exacerbation] @ -[no] Poses a threat to life or bodily function? @ -[no] Disposition Clinical Impression: Knee pain, right, Internal derangement of right knee Disposition: HOME SELF-CARE Condition: Good Instructions (If sedation given, give patient instructions): Knee Pain (ED) Additional Instructions: Rest, ice, elevate and wear compression wrap. Tylenol and or Motrin as needed for pain or discomfort. Follow-up with orthopedics next week for continuation of care. Return to the emergency room with any new or concerning symptoms including increased pain, inability to bear weight, redness or fevers. Is patient prescribed a controlled substance at d/c from ED?: No Referrals: Antolin Garcia DO [Primary Care Provider] - 1-2 days Ligia Davenport NPC [Nurse Practitioner] - 1-2 days Time of Disposition: 19:48
[2022-04-20] MEDS ORDERED: ACET/COD 300 MG/30 MG STARTER PACK 6 TAB BTL PO STA (19:49)
== END 2022-04-20 20:07 | disposition home or self-care (01) ==
LOC: EC 18:08
DX: M23.91 Unspecified internal derangement of right knee (principal); I10 Essential (primary) hypertension; I25.10 Atherosclerotic heart disease of native coronary artery without angina pectoris; E11.9 Type 2 diabetes mellitus without complications; G47.30 Sleep apnea, unspecified; Z79.84 Long term (current) use of oral hypoglycemic drugs; Z79.899 Other long term (current) drug therapy; Z88.8 Allergy status to other drugs, medicaments and biological substances
CPT/HCPCS: 99283; 96372; J1885

== ENCOUNTER 2022-08-10 01:28 | Emergency (ER) | payer MEDICARE, OTHER ==
[2022-08-10 02:37] LABS: Basophils % (A) 0 %; Eosinophils # (A) 0.2 k/uL (0-0.7); Eosinophils % (A) 3 %; HCT 42.2 % (39.0-53.0); Lymphocytes # (A) 2.5 k/uL (1.0-4.8); Lymphocytes % (A) 44 %; MCH 23.1 pg (25.0-35.0); MCHC 30.8 g/dL (31.0-37.0); MCV 74.8 fL (80.0-100.0); Mean Platelet Volume 7.6; Microcytosis Slight; Monocytes # (A) 0.2 k/uL (0-1.0); Monocytes % (A) 4 %; Neutrophils # (A) 2.6 k/uL (1.3-7.7); Neutrophils % (A) 47 %; Platelet Count 236 k/uL (150-450); RBC 5.63 m/uL (4.30-5.90); RDW 15.2 % (11.5-15.5); WBC 5.7 k/uL (3.8-10.6)
[2022-08-10 02:45] LABS: ALT 35 U/L (4-49); AST 39 U/L (17-59); African American GFR (CKD) >90 (>60 ml/min/1.73 sqM); Albumin 4.4 g/dL (3.5-5.0); Alkaline Phosphatase 72 U/L (38-126); Anion Gap 13 mmol/L; Blood Urea Nitrogen 11 mg/dL (9-20); Calcium 9.4 mg/dL (8.4-10.2); Carbon Dioxide 23 mmol/L (22-30); Chloride 104 mmol/L (98-107); Glucose 132 mg/dL (74-99); Non-African American GFR(CKD) 80 (>60 ml/min/1.73 sqM); Potassium 3.8 mmol/L (3.5-5.1); Sodium 140 mmol/L (137-145); Total Bilirubin 0.2 mg/dL (0.2-1.3); Total Protein 7.2 g/dL (6.3-8.2)
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
[2022-08-10 04:11] LABS: Appearance,Urine Clear (Clear); Bilirubin,Urine Negative (Negative); Blood,Urine Negative (Negative); Color,Urine Light Yellow; Glucose,Urine (UA) Negative (Negative); Ketones,Urine Negative (Negative); Leukocyte Esterase,Urine Negative (Negative); Nitrite,Urine Negative (Negative); PH, Urine 6.5 (5.0-8.0); Protein,Urine Negative (Negative); Specific Gravity,Urine 1.022 (1.001-1.035); Urobilinogen,Urine <2.0 mg/dL (<2.0)
--- NOTE | 2022-08-10 05:05 | CT ---
EXAM: CT Angiography Head With Intravenous Contrast CLINICAL HISTORY: ITS.REASON CT Reason: Headache TECHNIQUE: Axial computed tomographic angiography images of the head with intravenous contrast. CTDI is 19 mGy and DLP is 300.4 mGy-cm. This CT exam was performed using one or more of the following dose reduction techniques: automated exposure control, adjustment of the mA and/or kV according to patient size, and/or use of iterative reconstruction technique. MIP reconstructed images were created and reviewed. COMPARISON: No relevant prior studies available. FINDINGS: Right internal carotid artery: Intracranial segment is patent with no significant stenosis. No aneurysm. Right anterior cerebral artery: No occlusion or significant stenosis. No aneurysm. Right middle cerebral artery: No occlusion or significant stenosis. No aneurysm. Right posterior cerebral artery: No occlusion or significant stenosis. No aneurysm. Right vertebral artery: Unremarkable. Left internal carotid artery: Intracranial segment is patent with no significant stenosis. No aneurysm. Left anterior cerebral artery: No occlusion or significant stenosis. No aneurysm. Left middle cerebral artery: No occlusion or significant stenosis. No aneurysm. Left posterior cerebral artery: No occlusion or significant stenosis. No aneurysm. Left vertebral artery: Unremarkable. Basilar artery: No occlusion or significant stenosis. No aneurysm. 7 mm left to right midline shift. Left sided hemispheric subdural hematoma. IMPRESSION: No significant stenosis. 7 mm left to right midline shift. Left sided hemispheric subdural hematoma. EXAM: CT Angiography Neck With Intravenous Contrast CLINICAL HISTORY: ITS.REASON CT Reason: Headache TECHNIQUE: Axial computed tomographic angiography images of the neck with intravenous contrast. CTDI is 20 mGy and DLP is 435.00 mGy-cm. This CT exam was performed using one or more of the following dose reduction techniques: automated exposure control, adjustment of the mA and/or kV according to patient size, and/or use of iterative reconstruction technique. MIP reconstructed images were created and reviewed. COMPARISON: No relevant prior studies available. FINDINGS: VASCULATURE: Right common carotid artery: No significant stenosis. No dissection. Right internal carotid artery: Extracranial has no significant stenosis. No dissection. Right vertebral artery: No significant stenosis. No dissection. Left common carotid artery: No significant stenosis. No dissection. Left internal carotid artery: Extracranial has no significant stenosis. No dissection. Left vertebral artery: No significant stenosis. No dissection. NECK: Bones/joints: No acute fracture. No dislocation. 8 mm left thyroid nodule. CAROTID STENOSIS REFERENCE USING NASCET CRITERIA: % ICA stenosis = (1 - narrowest ICA diameter/diameter of distal cervical ICA) x 100. Mild - <50% stenosis. Moderate - 50-69% stenosis. Severe - 70-94% stenosis. Near occlusion - 95-99% stenosis. Occluded - 100% stenosis. IMPRESSION: No significant stenosis. <MYCVCSECTION> Communications: 08/10/22 05:17 Verify Receipt Verified receipt with DYLLAN Malagon on 08/10 05:17 (-04:00)
[2022-08-10] MEDS ORDERED: HYDROmorphone 0.5 MG/0.5 ML SYRINGE IVP STA (09:16)
[2022-08-10 09:20] VITALS: BP 181/85; PULSE 66; RESP 18
== END 2022-08-10 12:19 | disposition other institution (70) ==
LOC: EC 01:28
DX: I62.00 Nontraumatic subdural hemorrhage, unspecified (principal); E11.9 Type 2 diabetes mellitus without complications; I10 Essential (primary) hypertension; I25.10 Atherosclerotic heart disease of native coronary artery without angina pectoris; Z79.84 Long term (current) use of oral hypoglycemic drugs; Z79.899 Other long term (current) drug therapy; Z88.8 Allergy status to other drugs, medicaments and biological substances
CPT/HCPCS: 36415; 70496; 70498; 80053; 81003; 85025; 87635; 96374; 99285

== ENCOUNTER → 2022-10-25 | Outpatient (CLI) | payer MEDICARE, OTHER ==
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
== END | disposition home or self-care (01) ==
LOC: RADCTMAIN 10:50
DX: S06.5XAA Traumatic subdural hemorrhage with loss of consciousness status unknown, initial encounter (principal); Z98.890 Other specified postprocedural states
CPT/HCPCS: 70450

== ENCOUNTER 2022-11-26 19:09 | Emergency (ER) | payer MEDICARE, OTHER ==
[2022-11-26 19:13] VITALS: BP 132/83; PULSE 86; RESP 18; TEMP 97.3
--- NOTE | 2022-11-26 20:02 | ED ---
General Adult HPI - General Chief complaint: Abdominal Pain Stated complaint: ABD Pain x 3 months Time Seen by Provider: 11/26/22 19:30 Source: patient Mode of arrival: ambulatory Limitations: no limitations - History of Present Illness Initial comments: This is a 62-year-old male with a past medical history including hypertension and multiple musculoskeletal injuries in the past presents emergency department for right-sided abdominal pain. The patient stated that he has been working out and eating well and has lost approximately 40 pounds in the last several months. The patient stated however he started to have right-sided upper and lower quadrant abdominal pain over the last 2 months but stated that the pain became more severe this last week. The patient did state that the pain has become more severe over the last 2 days and because of the continued pain he wanted to be evaluated. The patient denied any current pain or distress noted. The patient stated that he had worsening pain with movement and it does come and go throughout the day. The patient stated that his problems but normal and denied any other acute pain or complete at this time. - Related Data Home Medications Medication Instructions Recorded Confirmed metFORMIN HCL [metFORMIN HCL ER] 750 mg PO BID 04/21/16 05/06/19 Alendronate Sodium [Fosamax] 70 mg PO MO 05/06/19 05/06/19 Diclofenac Sodium Gel [Voltaren 2 gm TOPICAL DAILY PRN 05/06/19 05/06/19 Gel] Ibuprofen 600 mg PO TID PRN 05/06/19 05/06/19 amLODIPine [Norvasc] 5 mg PO DAILY 05/06/19 05/06/19 atenoloL [Tenormin] 50 mg PO DAILY 05/06/19 05/06/19 lisinopriL 40 mg PO DAILY 05/06/19 05/06/19 Previous Rx's Medication Instructions Recorded Amoxicillin/Potassium Clav 1 tab PO Q12HR #20 tab 05/06/19 [Augmentin 875-125 Tablet] metFORMIN HCL [Glucophage] 500 mg PO BID #28 tab 05/24/19 Allergies Allergy/AdvReac Type Severity Reaction Status Date / Time valsartan Allergy Itching Verified 11/26/22 19:13 Review of Systems ROS Statement: Those systems with pertinent positive or pertinent negative responses have been documented in the HPI. ROS Other: All systems not noted in ROS Statement are negative. 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 Mother Family Medical History: Cancer Additional Family Medical History / Comment(s): Mother at age 42 from breast cancer. Patient has 2 brothers and 2 sisters with no major medical problems besides one sister with MRSA General Exam Limitations: no limitations General appearance: alert, in no apparent distress Head exam: Present: atraumatic, normocephalic, normal inspection Eye exam: Present: normal appearance, PERRL Pupils: Present: normal accommodation ENT exam: Present: normal exam, normal oropharynx, mucous membranes moist Neck exam: Present: normal inspection, full ROM Respiratory exam: Present: normal lung sounds bilaterally Cardiovascular Exam: Present: regular rate, normal rhythm, normal heart sounds GI/Abdominal exam: Present: soft, normal bowel sounds Extremities exam: Present: normal inspection, full ROM Back exam: Present: normal inspection, full ROM Neurological exam: Present: alert, oriented X3, CN II-XII intact Psychiatric exam: Present: normal affect, normal mood Skin exam: Present: warm, dry Course Vital Signs 11/26/22 19:10 Temperature 97.3 F L Pulse Rate 86 Respiratory 18 Rate Blood Pressure 132/83 O2 Sat by Pulse 97 Oximetry Medical Decision Making - Medical Decision Making Was pt. sent in by a medical professional or institution (, PA, COMPUTER NETWORKING INSTRUCTOR ADJUNCT, urgent care, hospital, or [place] [facility]...) When possible be specific @ -No Did you speak to anyone other than the patient for history (EMS, parent, family, police, friend...)? What history was obtained from this source @ -No Did you review nursing and triage notes (agree or disagree)? Why? @ -I reviewed and agree with nursing and triage notes Were old charts reviewed (outside hosp., previous admission, EMS record, old EKG, old radiological studies, urgent care reports/EKG's, [place] [facility] records)? Report findings @ -No old charts were reviewed Differential Diagnosis (chest pain, altered mental status, abdominal pain women, abdominal pain men, vaginal bleeding, weakness, fever, dyspnea, syncope, headache, dizziness, GI bleed, back pain, seizure, CVA, palpatations, mental health)? @ -Acute appendicitis, gastroenteritis, abdominal wall muscle strain EKG interpreted by me (3pts min.). @ -None X-rays interpreted by me (1pt min.). @ -KUB x-ray was obtained and was interpreted by myself showing no evidence for free air or bowel obstruction. There was mild stool burden. CT interpreted by me (1pt min.). @ -None done U/S interpreted by me (1pt. min.). @ -None done What testing was considered but not performed or refused? (CT, X-rays, U/S, labs)? Why? @ -None What meds were considered but not given or refused? Why? @ -None Did you discuss the management of the patient with other professionals (professionals i.e. , PA, COMPUTER NETWORKING INSTRUCTOR ADJUNCT, lab, RT, psych nurse, social services coordinator, maintenance mechanic technician, teacher, forest fire officer, case therapist)? Give summary @ -No Was smoking cessation discussed for >3mins.? @ -No Was critical care preformed (if so, how long)? @ -No Were there social determinants of health that impacted care today? How? (Homelessness, low income, unemployed, alcoholism, drug addiction, transportation, low edu. Level, literacy, decrease access to med. care, [place] [facility], rehab)? @ -No Was there de-escalation of care discussed even if they declined (Discuss DNR or withdrawal of care, Hospice)? DNR status @ -No What co-morbidities impacted this encounter? (DM, HTN, Smoking, COPD, CAD, Cancer, CVA, ARF, Chemo, Hep., AIDS, mental health diagnosis, sleep apnea, morbid obesity)? @ -Hypertension Was patient admitted / discharged? Hospital course, mention meds given and route, prescriptions, significant lab abnormalities, going to OR and other pertinent info. @ -The patient was seen and evaluated in emergency department. Physical exam, the patient was resting in bed without any acute distress. Vital signs admission were stable. Laboratory workup was obtained and was negative. X-ray was also negative and the patient denied of any pain on palpation. The patient likely had abdominal wall muscle strain as the pain was intermittent and has been lasting on and off for the last 2 months. The patient was advised to follow-up with his primary care physician for further workup and evaluations re port back to the emergency department if his pain became acutely worse. The patient was agreeable and was discharged home in stable condition. Undiagnosed new problem with uncertain prognosis? @ -No Drug Therapy requiring intensive monitoring for toxicity (Heparin, Nitro, Insulin, Cardizem)? @ -No Were any procedures done? @ -No Diagnosis/symptom? @ -Abdominal pain, NOS likely secondary to muscle strain Acute, or Chronic, or Acute on Chronic? @ -Chronic Uncomplicated (without systemic symptoms) or Complicated (systemic symptoms)? @ -Uncomplicated Side effects of treatment? @ -No Exacerbation, Progression, or Severe Exacerbation? @ -No Poses a threat to life or bodily function? How? (Chest pain, [place], [place], pneumonia, PE, COPD, DKA, ARF, appy, cholecystitis, CVA, Diverticulitis, Homicidal, Suicidal, threat to staff... and all critical care pts) @ -No - Lab Data Result diagrams: 11/26/22 19:42 11/26/22 19:42 Lab Results 11/26/22 11/26/22 11/26/22 Range/Units 19:42 19:42 20:28 WBC 5.0 (3.8-10.6) k/uL RBC 5.17 (4.30-5.90) m/uL Hgb 12.5 L (13.0-17.5) gm/dL Hct 38.5 L (39.0-53.0) % MCV 74.4 L (80.0-100.0) fL MCH 24.3 L (25.0-35.0) pg MCHC 32.6 (31.0-37.0) g/dL RDW 14.5 (11.5-15.5) % Plt Count 275 (150-450) k/uL MPV 7.3 Neutrophils % 42 % Lymphocytes % 50 % Monocytes % 4 % Eosinophils % 2 % Basophils % 0 % Neutrophils # 2.1 (1.3-7.7) k/uL Lymphocytes # 2.5 (1.0-4.8) k/uL Monocytes # 0.2 (0-1.0) k/uL Eosinophils # 0.1 (0-0.7) k/uL Basophils # 0.0 (0-0.2) k/uL Microcytosis Slight Sodium 143 (137-145) mmol/L Potassium 4.0 (3.5-5.1) mmol/L Chloride 108 H (98-107) mmol/L Carbon Dioxide 27 (22-30) mmol/L Anion Gap 8 mmol/L BUN 20 (9-20) mg/dL Creatinine 1.30 H (0.66-1.25) mg/dL Est GFR (CKD-EPI)AfAm 68 (>60 ml/min/1.73 sqM) Est GFR (CKD-EPI)NonAf 59 (>60 ml/min/1.73 sqM) Glucose 112 H (74-99) mg/dL Calcium 9.6 (8.4-10.2) mg/dL Magnesium 1.8 (1.6-2.3) mg/dL Total Bilirubin 0.4 (0.2-1.3) mg/dL AST 29 (17-59) U/L ALT 20 (4-49) U/L Alkaline Phosphatase 57 (38-126) U/L Total Protein 7.4 (6.3-8.2) g/dL Albumin 4.3 (3.5-5.0) g/dL Lipase 188 (23-300) U/L Urine Color Yellow Urine Appearance Clear (Clear) Urine pH 5.0 (5.0-8.0) Ur Specific [place] 1.026 (1.001-1.035) Urine Protein Trace H (Negative) Urine Glucose (UA) Negative (Negative) Urine Ketones Negative (Negative) Urine Blood Negative (Negative) Urine Nitrite Negative (Negative) Urine Bilirubin Negative (Negative) Urine Urobilinogen <2.0 (<2.0) mg/dL Ur Leukocyte Esterase Negative (Negative) Disposition Clinical Impression: Abdominal wall strain Disposition: HOME SELF-CARE Condition: Stable Instructions (If sedation given, give patient instructions): Muscle Strain (DC) Is patient prescribed a controlled substance at d/c from ED?: No Referrals: Antolin Garcia DO [Primary Care Provider] - 1-2 days Time of Disposition: 21:00
--- NOTE | 2022-11-26 20:31 | XR ---
EXAMINATION TYPE: XR KUB DATE OF EXAM: 11/26/2022 Comparison: 11/06/2019 Clinical History: 62-year-old male Right sided abdominal pain Findings: Lung bases are clear. No evidence for free intraperitoneal air. No dilated small bowel or air-fluid levels. Mild overall spinal wording with air extending distally to the rectum. No suspicious calcifications are seen. Impression: No evidence for free air or bowel obstruction. Mild stool burden.
[2022-11-26 20:34] LABS: Basophils % (A) 0 %; Eosinophils # (A) 0.1 k/uL (0-0.7); Eosinophils % (A) 2 %; HCT 38.5 % (39.0-53.0); HGB 12.5 gm/dL (13.0-17.5); Lymphocytes # (A) 2.5 k/uL (1.0-4.8); Lymphocytes % (A) 50 %; MCH 24.3 pg (25.0-35.0); MCHC 32.6 g/dL (31.0-37.0); MCV 74.4 fL (80.0-100.0); Mean Platelet Volume 7.3; Microcytosis Slight; Monocytes # (A) 0.2 k/uL (0-1.0); Monocytes % (A) 4 %; Neutrophils # (A) 2.1 k/uL (1.3-7.7); Neutrophils % (A) 42 %; Platelet Count 275 k/uL (150-450); RBC 5.17 m/uL (4.30-5.90); RDW 14.5 % (11.5-15.5)
[2022-11-26 20:46] LABS: ALT 20 U/L (4-49); AST 29 U/L (17-59); African American GFR (CKD) 68 (>60 ml/min/1.73 sqM); Albumin 4.3 g/dL (3.5-5.0); Alkaline Phosphatase 57 U/L (38-126); Anion Gap 8 mmol/L; Blood Urea Nitrogen 20 mg/dL (9-20); Calcium 9.6 mg/dL (8.4-10.2); Carbon Dioxide 27 mmol/L (22-30); Chloride 108 mmol/L (98-107); Glucose 112 mg/dL (74-99); Lipase 188 U/L (23-300); Magnesium 1.8 mg/dL (1.6-2.3); Non-African American GFR(CKD) 59 (>60 ml/min/1.73 sqM); Sodium 143 mmol/L (137-145); Total Bilirubin 0.4 mg/dL (0.2-1.3); Total Protein 7.4 g/dL (6.3-8.2)
[2022-11-26 20:50] LABS: Appearance,Urine Clear (Clear); Bilirubin,Urine Negative (Negative); Blood,Urine Negative (Negative); Color,Urine Yellow; Glucose,Urine (UA) Negative (Negative); Ketones,Urine Negative (Negative); Leukocyte Esterase,Urine Negative (Negative); Nitrite,Urine Negative (Negative); Protein,Urine Trace (Negative); Specific Gravity,Urine 1.026 (1.001-1.035); Urobilinogen,Urine <2.0 mg/dL (<2.0)
== END 2022-11-26 21:15 | disposition home or self-care (01) ==
LOC: EC 19:09
DX: S39.011A Strain of muscle, fascia and tendon of abdomen, initial encounter (principal); I25.10 Atherosclerotic heart disease of native coronary artery without angina pectoris; I10 Essential (primary) hypertension; E78.5 Hyperlipidemia, unspecified; E11.9 Type 2 diabetes mellitus without complications; Z88.8 Allergy status to other drugs, medicaments and biological substances; Z79.84 Long term (current) use of oral hypoglycemic drugs; Z79.899 Other long term (current) drug therapy; X58.XXXA Exposure to other specified factors, initial encounter
CPT/HCPCS: 36415; 74018; 80053; 81003; 83690; 83735; 85025; 99284

== ENCOUNTER 2023-04-11 12:21 | Emergency (ER) | payer MEDICARE, OTHER ==
[2023-04-11 13:21] VITALS: BP 120/63; PULSE 51; RESP 20; TEMP 98.1
--- NOTE | 2023-04-11 14:08 | ED ---
Extremity Problem HPI - General Chief complaint: Extremity Problem,Nontraumatic Stated complaint: foot pain Time Seen by Provider: 04/11/23 13:48 Source: patient, RN notes reviewed, old records reviewed Mode of arrival: ambulatory Limitations: no limitations - History of Present Illness Initial comments: This is a 62-year-old male to the ER for evaluation today. Patient in today for evaluation regards to right foot pain. Patient states he has ongoing pain for few weeks now he does feel like it is worse in the morning worse when he ambulates concern for arthritis no history of gout no trauma. MD Complaint: extremity pain, extremity swelling, joint swelling, joint pain, other -: days(s) Location: right (Foot pain), lower extremity, other (Foot) -: Yes arthralgia Radiation: none Severity scale (1-10): 7 Quality: aching Consistency: constant Improves with: nothing Worsens with: weight bearing, walking, palpation Associated Symptoms: denies other symptoms - Related Data Home Medications Medication Instructions Recorded Confirmed metFORMIN HCL [metFORMIN HCL ER] 750 mg PO BID 04/21/16 05/06/19 Alendronate Sodium [Fosamax] 70 mg PO MO 05/06/19 05/06/19 Diclofenac Sodium Gel [Voltaren 2 gm TOPICAL DAILY PRN 05/06/19 05/06/19 Gel] Ibuprofen 600 mg PO TID PRN 05/06/19 05/06/19 amLODIPine [Norvasc] 5 mg PO DAILY 05/06/19 05/06/19 atenoloL [Tenormin] 50 mg PO DAILY 05/06/19 05/06/19 lisinopriL 40 mg PO DAILY 05/06/19 05/06/19 Previous Rx's Medication Instructions Recorded Amoxicillin/Potassium Clav 1 tab PO Q12HR #20 tab 05/06/19 [Augmentin 875-125 Tablet] metFORMIN HCL [Glucophage] 500 mg PO BID #28 tab 05/24/19 Allergies Allergy/AdvReac Type Severity Reaction Status Date / Time valsartan Allergy Itching Verified 04/11/23 13:03 Review of Systems ROS Statement: Those systems with pertinent positive or pertinent negative responses have been documented in the HPI. ROS Other: All systems not noted in ROS Statement are negative. 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 Mother Family Medical History: Cancer Additional Family Medical History / Comment(s): Mother at age 42 from breast cancer. Patient has 2 brothers and 2 sisters with no major medical problems besides one sister with MRSA General Exam Limitations: no limitations General appearance: alert, in no apparent distress Head exam: Present: atraumatic, normocephalic, normal inspection Eye exam: Present: normal appearance, PERRL, EOMI. Absent: scleral icterus, conjunctival injection, periorbital swelling ENT exam: Present: normal exam, mucous membranes moist Neck exam: Present: normal inspection. Absent: tenderness, meningismus, lymphadenopathy Respiratory exam: Present: normal lung sounds bilaterally. Absent: respiratory distress, wheezes, rales, rhonchi, stridor Cardiovascular Exam: Present: regular rate, normal rhythm, normal heart sounds. Absent: systolic murmur, diastolic murmur, rubs, gallop, clicks GI/Abdominal exam: Present: soft, normal bowel sounds. Absent: distended, tenderness, guarding, rebound, rigid Extremities exam: Present: normal inspection, full ROM, normal capillary refill. Absent: tenderness, pedal edema, joint swelling, calf tenderness Back exam: Present: normal inspection Neurological exam: Present: alert, oriented X3, CN II-XII intact Psychiatric exam: Present: normal affect, normal mood Skin exam: Present: warm, dry, intact, normal color. Absent: rash Course Vital Signs 04/11/23 13:01 Temperature 98.1 F Pulse Rate 51 L Respiratory 20 Rate Blood Pressure 120/63 O2 Sat by Pulse 99 Oximetry - Reevaluation(s) Reevaluation #1: Medical records reviewed Reevaluation #2: Patient symptoms improved Reevaluation #3: Patient informed of results questions answered Reevaluation #4: Was pt. sent in by a medical professional or institution (FABIOLA Blevins, JAVA DEVELOPER WITH SECURITY CLEARANCE, urgent care, hospital, or [facility]...) When possible be specific @ -no Did you speak to anyone other than the patient for history (EMS, parent, family, police, friend...)? What history was obtained from this source @ -no Did you review nursing and triage notes (agree or disagree)? Why? @ -agree Are old charts reviewed (outside hosp., previous admission, EMS record, old EKG, old radiological studies, urgent care reports/EKG's, [facility] records)? Report findings @ -yes Differential Diagnosis (chest pain, altered mental status, abdominal pain women, abdominal pain men, vaginal bleeding, weakness, fever, dyspnea, syncope, headache, dizziness, GI bleed, back pain, seizure, CVA, palpatations, mental health, musculoskeletal)? @ -prior EKG interpreted by me (3pts min.). @ -yes X-rays interpreted by me (1pt min.). @ -yes negative for acute disease CT interpreted by me (1pt min.). @ -no U/S interpreted by me (1pt. min.). @ -no What testing was considered but not performed or refused? (CT, X-rays, U/S, labs)? Why? @ -none What meds were considered but not given or refused? Why? @ -none Did you discuss the management of the patient with other professionals (professionals i.e. FABIOLA Blevins, JAVA DEVELOPER WITH SECURITY CLEARANCE, lab, RT, psych nurse, licensed clinical social worker, rate and cost analyst, teacher, co founder and chief strategy officer, high risk case manager)? Give summary @ -no Was smoking cessation discussed for >3mins.? @ -no Were there social determinants of health that impacted care today? How? (Homelessness, low income, unemployed, alcoholism, drug addiction, transportation, low edu. Level, literacy, decrease access to med. care, halfway, rehab)? @ -none Was there de-escalation of care discussed even if they declined (Discuss DNR or withdrawal of care, Hospice)? DNR status @ -no What co-morbidities impacted this encounter? (DM, HTN, Smoking, COPD, CAD, Cancer, CVA, ARF, Chemo, Hep., AIDS, mental health diagnosis, sleep apnea, morbid obesity)? @ -none Was patient admitted / discharged? Hospital course, mention meds given and route, prescriptions, significant lab abnormalities, going to OR and other per tinent info. @ -62-year-old male to the ER for evaluation of right foot pain consistent with plantar fasciitis, pain is well-controlled is able to ambulate can be discharged home Discharge Was critical care preformed (if so, how long)? @ -no Undiagnosed new problem with uncertain prognosis? @ -no Drug Therapy requiring intensive monitoring for toxicity (Heparin, Nitro, Insulin, Cardizem)? @ -no Were any procedures done? @ -no Diagnosis/symptom? @ -Right foot pain Acute, or Chronic, or Acute on Chronic? @ -Acute Uncomplicated (without systemic symptoms) or Complicated (systemic symptoms)? @ -Complicated Side effects of treatment? @ -no Exacerbation, Progression, or Severe Exacerbation? @ -exacerbation Poses a threat to life or bodily function? How? (Chest pain, [place], [place], pneumonia, PE, COPD, DKA, ARF, appy, cholecystitis, CVA, Diverticulitis, Homicidal, Suicidal, threat to staff... and all critical care pts) @ -yes Medical Decision Making - Medical Decision Making 62-year-old male with right foot pain consistent with plantar fasciitis, patient will have be discharged home with pain control normal x-rays here in the ER a ble to ambulate - Radiology Data Radiology results: report reviewed (X-ray right foot is negative for acute disease), image reviewed Disposition Clinical Impression: Right foot pain Disposition: HOME SELF-CARE Condition: Good Instructions (If sedation given, give patient instructions): Plantar Fasciitis (ED) Is patient prescribed a controlled substance at d/c from ED?: No Referrals: Antolin Garcia DO [Primary Care Provider] - 1-2 days Time of Disposition: 15:00
--- NOTE | 2023-04-11 14:45 | XR ---
EXAMINATION TYPE: XR foot complete RT DATE OF EXAM: 04/11/2023 CLINICAL HISTORY: pain more prominent laterally after gymnastics injury TECHNIQUE: Frontal, lateral, and oblique images of the right foot are obtained. COMPARISON: None FINDINGS: There is no acute fracture/dislocation evident in the right foot. The joint spaces in the right foot appear within normal limits. The overlying soft tissue appears unremarkable. IMPRESSION: There is no acute fracture or dislocation in the right foot.
== END 2023-04-11 15:14 | disposition home or self-care (01) ==
LOC: EC 12:21
DX: M79.671 Pain in right foot (principal); E11.9 Type 2 diabetes mellitus without complications; I10 Essential (primary) hypertension; I25.10 Atherosclerotic heart disease of native coronary artery without angina pectoris; Z79.84 Long term (current) use of oral hypoglycemic drugs; Z79.899 Other long term (current) drug therapy; Z88.8 Allergy status to other drugs, medicaments and biological substances
CPT/HCPCS: 99284

== ENCOUNTER 2023-07-21 10:05 | Emergency (ER) | payer MEDICARE, OTHER ==
[2023-07-21 10:50] VITALS: TEMP 97.3
[2023-07-21] MEDS: KETOROLAC 15 MG/ML 1 ML VIAL IM STA (11:05)
--- NOTE | 2023-07-21 11:09 | XR ---
EXAMINATION TYPE: XR shoulder complete LT DATE OF EXAM: 07/21/2023 COMPARISON: 07/26/2016 HISTORY: Pain TECHNIQUE: Left Shoulder examined in 3 projections. FINDINGS: The humeral head articulates with the glenoid. The acromio-clavicular junction has some new mild hypertrophy. No acute fractures or dislocations are evident. A follow up study can be performed 7-10 days from acute trauma for continued pain. MRI can be perfor med if soft tissue evaluation would be of benefit. IMPRESSION: 1. No acute osseous left shoulder abnormality.
--- NOTE | 2023-07-21 11:14 | ED ---
Extremity Problem HPI - General Chief complaint: Extremity Problem,Nontraumatic Stated complaint: L Shoulder Pain Time Seen by Provider: 07/21/23 10:30 Source: patient, RN notes reviewed Mode of arrival: ambulatory Limitations: no limitations - History of Present Illness Initial comments: 63-year-old male with history of left rotator cuff tear presenting with left shoulder injury 1 week ago. Patient states he was at the gym lifting weights and shortly afterward began to feel left shoulder pain that is worse with movement, specifically lifting arms above the head. Patient states the pain has been worsening over the course of the week. States this injury feels similar to previous rotator cuff tear. Denies numbness or tingling of the arm. Denies chest pain, shortness of breath, palpitations. - Related Data Home Medications Medication Instructions Recorded Confirmed metFORMIN HCL [metFORMIN HCL ER] 750 mg PO BID 04/21/16 05/06/19 Alendronate Sodium [Fosamax] 70 mg PO MO 05/06/19 05/06/19 Diclofenac Sodium Gel [Voltaren 2 gm TOPICAL DAILY PRN 05/06/19 05/06/19 Gel] Ibuprofen 600 mg PO TID PRN 05/06/19 05/06/19 amLODIPine [Norvasc] 5 mg PO DAILY 05/06/19 05/06/19 atenoloL [Tenormin] 50 mg PO DAILY 05/06/19 05/06/19 lisinopriL 40 mg PO DAILY 05/06/19 05/06/19 Previous Rx's Medication Instructions Recorded Amoxicillin/Potassium Clav 1 tab PO Q12HR #20 tab 05/06/19 [Augmentin 875-125 Tablet] metFORMIN HCL [Glucophage] 500 mg PO BID #28 tab 05/24/19 Allergies Allergy/AdvReac Type Severity Reaction Status Date / Time aspirin Allergy Unknown Verified 07/21/23 10:15 valsartan Allergy Itching Verified 07/21/23 10:15 Review of Systems ROS Statement: Those systems with pertinent positive or pertinent negative responses have been documented in the HPI. ROS Other: All systems not noted in ROS Statement are negative. 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 Mother Family Medical History: Cancer Additional Family Medical History / Comment(s): Mother at age 42 from breast cancer. Patient has 2 brothers and 2 sisters with no major medical problems besides one sister with MRSA General Exam Limitations: no limitations General appearance: alert, in no apparent distress Neck exam: Present: normal inspection. Absent: tenderness, meningismus, lymphadenopathy Respiratory exam: Present: normal lung sounds bilaterally. Absent: respiratory distress, wheezes, rales, rhonchi, stridor Cardiovascular Exam: Present: regular rate, normal rhythm, normal heart sounds. Absent: systolic murmur, diastolic murmur, rubs, gallop, clicks Left General: Present: normal inspection Shoulder Exam: Present: normal inspection, full ROM, other (Positive empty can test. Positive Neer's test. Full sensation and radial pulses of bilateral upper extremities.). Absent: tenderness, swelling, erythema Upper Arm exam: Present: normal inspection, full ROM. Absent: tenderness, swelling Course Vital Signs 07/21/23 07/21/23 10:10 12:13 Temperature 97.3 F L Pulse Rate 49 L 54 L Respiratory 18 17 Rate Blood Pressure 112/70 112/65 O2 Sat by Pulse 100 98 Oximetry Medical Decision Making - Medical Decision Making Was pt. sent in by a medical professional or institution (, PA, MICROWAVE RADIO TECHNICIAN, urgent care, hospital, or senior living...) When possible be specific @ -No Did you speak to anyone other than the patient for history (EMS, parent, family, police, friend...)? What history was obtained from this source @ -No Did you review nursing and triage notes (agree or disagree)? Why? @ -I reviewed and agree with nursing and triage notes Were old charts reviewed (outside hosp., previous admission, EMS record, old EKG, old radiological studies, urgent care reports/EKG's, senior living records)? Report findings @ -No old charts were reviewed Differential Diagnosis (chest pain, altered mental status, abdominal pain women, abdominal pain men, vaginal bleeding, weakness, fever, dyspnea, syncope, headache, dizziness, GI bleed, back pain, seizure, CVA, palpatations, mental health, musculoskeletal)? @ -Differential Musculoskeletal Muscular strain, contusion, ligament sprain, fracture, arthritis, septic arthritis, bursitis, cellulitis, muscle spasm, nerve compression, DVT, arterial occlusion, herpes zoster, electrolyte abnormality, tumor.... This is not meant to be in all inclusive list EKG interpreted by me (3pts min.). @ -None X-rays interpreted by me (1pt min.). @ -Left shoulder x-ray reveals no acute process CT interpreted by me (1pt min.). @ -None done U/S interpreted by me (1pt. min.). @ -None done What testing was considered but not performed or refused? (CT, X-rays, U/S, labs)? Why? @ -None What meds were considered but not given or refused? Why? @ -None Did you discuss the management of the patient with other professionals (professionals i.e. , PA, MICROWAVE RADIO TECHNICIAN, lab, RT, psych nurse, director social service, department of natural resources officer, teacher, senior loan officer, leather case finisher)? Give summary @ -No Was smoking cessation discussed for >3mins.? @ -No Was critical care preformed (if so, how long)? @ -No Were there social determinants of health that impacted care today? How? (Homelessness, low income, unemployed, alcoholism, drug addiction, transport ation, low edu. Level, literacy, decrease access to med. care, long-term, rehab)? @ -No Was there de-escalation of care discussed even if they declined (Discuss DNR or withdrawal of care, Hospice)? DNR status @ -No What co-morbidities impacted this encounter? (DM, HTN, Smoking, COPD, CAD, Cancer, CVA, ARF, Chemo, Hep., AIDS, mental health diagnosis, sleep apnea, morbid obesity)? @ -None Was patient admitted / discharged? Hospital course, mention meds given and route, prescriptions, significant lab abnormalities, going to OR and other pertinent info. @ -Patient was discharged. Patient was seen and evaluated for left shoulder pain x 1 week. No red flag symptoms. Neurovascularly intact. Positive Neer's and positive empty can test on examination. X-ray negative for acute process. Patient initially given Toradol for pain with minimal relief. Patient given 1 Beverly prior to discharge for pain. Red flag symptoms discussed. Orthopedic follow-up given. Patient discharged in stable condition. Case discussed with Dr. Reese. Undiagnosed new problem with uncertain prognosis? @ -No Drug Therapy requiring intensive monitoring for toxicity (Heparin, Nitro, Insulin, Cardizem)? @ -No Were any procedures done? @ -No Diagnosis/symptom? @ -Rotator cuff injury of left shoulder Acute, or Chronic, or Acute on Chronic? @ -Acute Uncomplicated (without systemic symptoms) or Complicated (systemic symptoms)? @ -Uncomplicated Side effects of treatment? @ -No Exacerbation, Progression, or Severe Exacerbation? @ -No Poses a threat to life or bodily function? How? (Chest pain, [place], [place], pneumonia, PE, COPD, DKA, ARF, appy, cholecystitis, CVA, Diverticulitis, Homicidal, Suicidal, threat to staff... and all critical care pts) @ -No Disposition Clinical Impression: Injury of left rotator cuff Disposition: HOME SELF-CARE Condition: Stable Instructions (If sedation given, give patient instructions): Rotator Cuff Injury (ED) Additional Instructions: Please return to the Emergency Department if symptoms worsen or any other concerns. Is patient prescribed a controlled substance at d/c from ED?: No Referrals: Antolin Garcia DO [Primary Care Provider] - 1-2 days Leon Mcdonald MD [Medical Doctor] - 1-2 days Time of Disposition: 12:02
[2023-07-21] MEDS: HYDROcodone/APAP 5-325MG 1 EACH TAB PO STA (12:12)
[2023-07-21 12:20] VITALS: BP 112/65; PULSE 54; RESP 17
== END 2023-07-21 12:18 | disposition home or self-care (01) ==
LOC: SUPCPDRO 10:05 → EC 10:05
DX: S46.002A Unspecified injury of muscle(s) and tendon(s) of the rotator cuff of left shoulder, initial encounter (principal); Z88.6 Allergy status to analgesic agent; Z88.8 Allergy status to other drugs, medicaments and biological substances; X50.0XXA Overexertion from strenuous movement or load, initial encounter; Y92.39 Other specified sports and athletic area as the place of occurrence of the external cause
CPT/HCPCS: 73030; 99283; 96372; J1885

== ENCOUNTER 2023-09-18 16:15 | Emergency (ER) | payer MEDICARE, OTHER ==
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
--- NOTE | 2023-09-18 17:28 | XR ---
EXAMINATION TYPE: XR hand complete RT DATE OF EXAM: 09/18/2023 5:11 PM CLINICAL INDICATION:Male, 63 years old with history of 3rd finger, THUMB; [facility] COMPARISON: None TECHNIQUE: 3 views of the right hand. FINDINGS: Osseous mineralization appears appropriate. No destructive bony lesion. No acute fracture or dislocat ion. Mild diffuse osteoarthritic changes. Mild deformity of the distal fifth metacarpal with the appe arance of an old healed boxer's fracture. Soft tissues are unremarkable. No radiopaque foreign body i s seen. IMPRESSION: 1. No acute fracture or dislocation. 2. Chronic/degenerative changes as above.
[2023-09-18 18:02] VITALS: BP 125/79; PULSE 55; RESP 18; TEMP 98.1
== END 2023-09-18 18:06 | disposition home or self-care (01) ==
LOC: EC 16:15
DX: S62.632A Displaced fracture of distal phalanx of right middle finger, initial encounter for closed fracture (principal); Z88.6 Allergy status to analgesic agent; Z88.8 Allergy status to other drugs, medicaments and biological substances; Y08.89XA Assault by other specified means, initial encounter
CPT/HCPCS: 99283

== ENCOUNTER 2024-01-24 10:25 | Emergency (ER) | payer MEDICARE, OTHER ==
[2024-01-24 10:29] VITALS: TEMP 98
--- NOTE | 2024-01-24 11:16 | ED ---
URI HPI - General Chief Complaint: Upper Respiratory Infection Stated Complaint: Throat pain, right knee pain Time Seen by Provider: 01/24/24 10:30 Source: patient, RN notes reviewed Mode of arrival: ambulatory Limitations: no limitations - History of Present Illness Initial Comments: 63-year-old male presents emergency department complaint of sore throat, cough congestion x 2 weeks. Patient states he is currently staying in a homeless retirement. Patient states Diareze been sick around him. He states he feels like symptoms are getting worse she is unable to give to the symptoms himself. Patient states that sore throat is constant he has a productive phlegmy cough. Patient denies any chest pain or any known lung disease. Denies nausea vomit di arrhea constipation does complain of mild headache. - Related Data Home Medications Medication Instructions Recorded Confirmed metFORMIN HCL [metFORMIN HCL ER] 750 mg PO BID 04/21/16 05/06/19 Alendronate Sodium [Fosamax] 70 mg PO MO 05/06/19 05/06/19 Diclofenac Sodium Gel [Voltaren 2 gm TOPICAL DAILY PRN 05/06/19 05/06/19 Gel] Ibuprofen 600 mg PO TID PRN 05/06/19 05/06/19 amLODIPine [Norvasc] 5 mg PO DAILY 05/06/19 05/06/19 atenoloL [Tenormin] 50 mg PO DAILY 05/06/19 05/06/19 lisinopriL 40 mg PO DAILY 05/06/19 05/06/19 Previous Rx's Medication Instructions Recorded Amoxicillin/Potassium Clav 1 tab PO Q12HR #20 tab 05/06/19 [Augmentin 875-125 Tablet] metFORMIN HCL [Glucophage] 500 mg PO BID #28 tab 05/24/19 Amoxic-Pot Clav 875-125Mg 1 tab PO Q12HR #20 tab 01/24/24 [Augmentin 875-125] Allergies Allergy/AdvReac Type Severity Reaction Status Date / Time aspirin Allergy Unknown Verified 01/24/24 10:29 valsartan Allergy Itching Verified 01/24/24 10:29 Review of Systems ROS Statement: Those systems with pertinent positive or pertinent negative responses have been documented in the HPI. ROS Other: All systems not noted in ROS Statement are negative. 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 Mother Family Medical History: Cancer Additional Family Medical History / Comment(s): Mother at age 42 from [place] cancer. Patient has 2 brothers and 2 sisters with no major medical problems besides one sister with MRSA General Exam Limitations: no limitations General appearance: alert, in no apparent distress Head exam: Present: atraumatic, normocephalic, normal inspection Eye exam: Present: normal appearance, PERRL, EOMI. Absent: scleral icterus, conjunctival injection, periorbital swelling ENT exam: Present: normal exam, normal oropharynx, mucous membranes moist Neck exam: Present: normal inspection, full ROM. Absent: tenderness, meningismus, lymphadenopathy Respiratory exam: Present: normal lung sounds bilaterally. Absent: respiratory distress, wheezes, rales, rhonchi, stridor Cardiovascular Exam: Present: regular rate, normal rhythm, normal heart sounds. Absent: systolic murmur, diastolic murmur, rubs, gallop, clicks GI/Abdominal exam: Present: soft, normal bowel sounds. Absent: distended, tenderness, guarding, rebound, rigid Course Vital Signs 01/24/24 01/24/24 10:27 12:01 Temperature 98.0 F Pulse Rate 65 64 Respiratory 16 18 Rate Blood Pressure 153/76 148/76 O2 Sat by Pulse 98 99 Oximetry Medical Decision Making - Medical Decision Making Was pt. sent in by a medical professional or institution (, PA, BELT LINE FEEDER, urgent care, hospital, or senior living...) When possible be specific @ -No Did you speak to anyone other than the patient for history (EMS, parent, family, police, friend...)? What history was obtained from this source @ -No Did you review nursing and triage notes (agree or disagree)? Why? @ -I reviewed and agree with nursing and triage notes Were old charts reviewed (outside hosp., previous admission, EMS record, old EKG, old radiological studies, urgent care reports/EKG's, senior living records)? Report findings @ -No old charts were reviewed Differential Diagnosis (chest pain, altered mental status, abdominal pain women, abdominal pain men, vaginal bleeding, weakness, fever, dyspnea, syncope, headache, dizziness, GI bleed, back pain, seizure, CVA, palpatations, mental health, musculoskeletal)? @ -COVID 19, RSV, influenza, pneumonia, acute bronchitis, URI, this list is not all inclusive EKG interpreted by me (3pts min.). @ -None X-rays interpreted by me (1pt min.). @ -Chest x-ray 2 view no acute cardiopulmonary process CT interpreted by me (1pt min.). @ -None done U/S interpreted by me (1pt. min.). @ -None done What testing was considered but not performed or refused? (CT, X-rays, U/S, labs)? Why? @ -None What meds were considered but not given or refused? Why? @ -None Did you discuss the management of the patient with other professionals (professionals i.e. , PA, BELT LINE FEEDER, lab, RT, psych nurse, clinical social work therapist, lending manager, teacher, fire information officer, pillowcase cleaner)? Give summary @ -No Was smoking cessation discussed for >3mins.? @ -No Was critical care preformed (if so, how long)? @ -No Were there social determinants of health that impacted care today? How? (Homelessness, low income, unemployed, alcoholism, drug addiction, transportation, low edu. Level, literacy, decrease access to med. care, halfway, rehab)? @ -No Was there de-escalation of care discussed even if they declined (Discuss DNR or withdrawal of care, Hospice)? DNR status @ -No What co-morbidities impacted this encounter? (DM, HTN, Smoking, COPD, CAD, Cancer, CVA, ARF, Chemo, Hep., AIDS, mental health diagnosis, sleep apnea, morbid obesity)? @ -None Was patient admitted / discharged? Hospital course, mention meds given and route, prescriptions, significant lab abnormalities, going to OR and other pertinent info. @ -Discharge patient had negative strep, negative x-ray. Patient has acute tracheobronchitis. Patient discharged in stable condition return parameters hawk. Undiagnosed new problem with uncertain prognosis? @ -No Drug Therapy requiring intensive monitoring for toxicity (Heparin, Nitro, Insulin, Cardizem)? @ -No Were any procedures done? @ -No Diagnosis/symptom? @ -Tracheobronchitis Acute, or Chronic, or Acute on Chronic? @ -Acute Uncomplicated (without systemic symptoms) or Complicated (systemic symptoms)? @ -Uncomplicated Side effects of treatment? @ -No Exacerbation, Progression, or Severe Exacerbation? @ -No Poses a threat to life or bodily function? How? (Chest pain, [place], [place], pneumonia, PE, COPD, DKA, ARF, appy, cholecystitis, CVA, Diverticulitis, Homicidal, Suicidal, threat to staff... and all critical care pts) @ -No - Lab Data Lab Results 01/24/24 Range/Units 11:00 Group A Strep (PCR) NOT DETECTED (Not Detectd) Disposition Clinical Impression: Tracheobronchitis Disposition: HOME SELF-CARE Condition: Stable Instructions (If sedation given, give patient instructions): Upper Respiratory Infection (ED) Additional Instructions: Please return to the Emergency Department if symptoms worsen or any other concerns. Prescriptions: Amoxic-Pot Clav 875-125Mg [Augmentin 875-125] 1 tab PO Q12HR #20 tab Is patient prescribed a controlled substance at d/c from ED?: No Referrals: Antolin Garcia DO [Primary Care Provider] - 1-2 days Time of Disposition: 11:50
--- NOTE | 2024-01-24 11:25 | XR ---
EXAMINATION TYPE: XR chest 2V DATE OF EXAM: 01/24/2024 11:11 AM COMPARISON: 11/06/2019 CLINICAL INDICATION: Male, 63 years old with history of cough; [facility] TECHNIQUE: XR chest 2V Frontal and lateral views of the chest. FINDINGS: Lungs/Pleura: There is no evidence of pleural effusion, focal consolidation, or pneumothorax. Pulmonary vascularity: Unremarkable. Heart/mediastinum: Cardiomediastinal silhouette is unremarkable. Musculoskeletal: No acute osseous pathology. Other findings: None IMPRESSION: No acute cardiopulmonary disease/process. [facility], , 01/24/2024 11:23 AM
[2024-01-24 12:02] VITALS: BP 148/76; PULSE 64; RESP 18
== END 2024-01-24 12:02 | disposition home or self-care (01) ==
LOC: EC 10:25
DX: J40 Bronchitis, not specified as acute or chronic (principal); Z88.6 Allergy status to analgesic agent
CPT/HCPCS: 71046; 87651; 99283

== ENCOUNTER 2024-02-13 13:04 | Emergency (ER) | payer MEDICARE, OTHER ==
--- NOTE | 2024-02-13 13:31 | ED ---
General Adult HPI - General Stated complaint: Dental pain Time Seen by Provider: 02/13/24 13:10 Source: patient, RN notes reviewed, old records reviewed - History of Present Illness Initial comments: 63-year-old male who comes in complaining of left lower dental pain in the area where he has missing teeth. Patient's complaining of pain where his wisdom teeth should have been. Patient states been ongoing since yesterday and is getting a little worse today. Patient denies any fever chills or cough or patient has any area that is fluctuant. Patient denies any redness on the skin patient denies any pain in the cheek. - Related Data Home Medications Medication Instructions Recorded Confirmed metFORMIN HCL [metFORMIN HCL ER] 750 mg PO BID 04/21/16 05/06/19 Alendronate Sodium [Fosamax] 70 mg PO MO 05/06/19 05/06/19 Diclofenac Sodium Gel [Voltaren 2 gm TOPICAL DAILY PRN 05/06/19 05/06/19 Gel] Ibuprofen 600 mg PO TID PRN 05/06/19 05/06/19 amLODIPine [Norvasc] 5 mg PO DAILY 05/06/19 05/06/19 atenoloL [Tenormin] 50 mg PO DAILY 05/06/19 05/06/19 lisinopriL 40 mg PO DAILY 05/06/19 05/06/19 Previous Rx's Medication Instructions Recorded Amoxicillin/Potassium Clav 1 tab PO Q12HR #20 tab 05/06/19 [Augmentin 875-125 Tablet] metFORMIN HCL [Glucophage] 500 mg PO BID #28 tab 05/24/19 Amoxic-Pot Clav 875-125Mg 1 tab PO Q12HR #20 tab 01/24/24 [Augmentin 875-125] Amoxic-Pot Clav 875-125Mg 1 tab PO BID 7 Days #14 tab 02/13/24 [Augmentin 875-125] Allergies Allergy/AdvReac Type Severity Reaction Status Date / Time aspirin Allergy Unknown Verified 01/24/24 10:29 valsartan Allergy Itching Verified 01/24/24 10:29 Review of Systems ROS Statement: Those systems with pertinent positive or pertinent negative responses have been documented in the HPI. ROS Other: All systems not noted in ROS Statement are negative. 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 Mother Family Medical History: Cancer Additional Family Medical History / Comment(s): Mother at age 42 from breast cancer. Patient has 2 brothers and 2 sisters with no major medical problems besides one sister with MRSA General Exam - General Exam Comments Initial Comments: GENERAL Patient is well-developed and well-nourished. Patient is in mild distress. EYES Patient's pupils are equal and round. Extraocular motion is intact MOUTH Patient is missing 3 posterior teeth in the left lower jaw area is tender but there is no fluctuant area no signs of a mass SKIN Unremarkable NEURO The patient is alert and oriented A&Ox3 PYSCH Patient has normal interpersonal interactions. MUSCULOSKELETAL Patient can move all 4 extremities Course Vital Signs 02/13/24 13:33 Temperature 97 F L Pulse Rate 93 Respiratory 16 Rate Blood Pressure 150/81 O2 Sat by Pulse 97 Oximetry Disposition Clinical Impression: Pain, dental Disposition: HOME SELF-CARE Condition: Good Instructions (If sedation given, give patient instructions): Toothache (ED) Prescriptions: Amoxic-Pot Clav 875-125Mg [Augmentin 875-125] 1 tab PO BID 7 Days #14 tab Is patient prescribed a controlled substance at d/c from ED?: No Referrals: Antolin Garcia DO [Primary Care Provider] - 1-2 days Time of Disposition: 13:30
[2024-02-13 13:35] VITALS: BP 150/81; PULSE 93; RESP 16; TEMP 97
== END 2024-02-13 14:09 | disposition home or self-care (01) ==
LOC: EC 13:04
DX: K08.89 Other specified disorders of teeth and supporting structures (principal); Z88.6 Allergy status to analgesic agent; Z88.8 Allergy status to other drugs, medicaments and biological substances
CPT/HCPCS: 99282

== ENCOUNTER 2024-03-07 07:36 | Emergency (ER) | payer MEDICARE, OTHER ==
[2024-03-07 07:46] VITALS: TEMP 97.4
--- NOTE | 2024-03-07 08:10 | ED ---
General Adult HPI - General Chief complaint: Fall Stated complaint: Fall/Back Time Seen by Provider: 03/07/24 07:43 Source: patient Mode of arrival: wheelchair Limitations: no limitations - History of Present Illness Initial comments: Dictation was produced using [employer] dictation software. please excuse any grammatical, word or spelling errors. Chief Complaint: 63-year-old male presents with back pain after fall History of Present Illness: Patient 63-year-old male at approximately 7:10 AM he slipped fell landed on his bottom after he lost his footing due to ice on the floor. Patient states he immediately had back pain. Patient has extensive history of back surgery over the last several years including laminectomies etc. Patient currently homeless. Denies any saddle anesthesia. Patient symptoms nonradiating. States that he has pain on his lower back. No loss of bowel or bladder control. The ROS documented in this emergency department record has been reviewed and confirmed by me. Those systems with pertinent positive or negative responses have been documented in the HPI. All other systems are other negative and/or noncontributory. - Related Data Home Medications Medication Instructions Recorded Confirmed metFORMIN HCL [metFORMIN HCL ER] 750 mg PO BID 04/21/16 05/06/19 Alendronate Sodium [Fosamax] 70 mg PO MO 05/06/19 05/06/19 Diclofenac Sodium Gel [Voltaren 2 gm TOPICAL DAILY PRN 05/06/19 05/06/19 Gel] Ibuprofen 600 mg PO TID PRN 05/06/19 05/06/19 amLODIPine [Norvasc] 5 mg PO DAILY 05/06/19 05/06/19 atenoloL [Tenormin] 50 mg PO DAILY 05/06/19 05/06/19 lisinopriL 40 mg PO DAILY 05/06/19 05/06/19 Previous Rx's Medication Instructions Recorded Amoxicillin/Potassium Clav 1 tab PO Q12HR #20 tab 05/06/19 [Augmentin 875-125 Tablet] metFORMIN HCL [Glucophage] 500 mg PO BID #28 tab 05/24/19 Amoxic-Pot Clav 875-125Mg 1 tab PO Q12HR #20 tab 01/24/24 [Augmentin 875-125] Amoxic-Pot Clav 875-125Mg 1 tab PO BID 7 Days #14 tab 02/13/24 [Augmentin 875-125] HYDROcodone/APAP 5-325MG [[place] 1 tab PO Q6HR PRN 3 Days #12 tab 03/07/24 5-325] Allergies Allergy/AdvReac Type Severity Reaction Status Date / Time aspirin Allergy Unknown Verified 03/07/24 07:39 valsartan Allergy Itching Verified 03/07/24 07:39 Review of Systems ROS Statement: Those systems with pertinent positive or pertinent negative responses have been documented in the HPI. ROS Other: All systems not noted in ROS Statement are negative. 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 Mother Family Medical History: Cancer Additional Family Medical History / Comment(s): Mother at age 42 from breast cancer. Patient has 2 brothers and 2 sisters with no major medical problems besides one sister with MRSA General Exam - General Exam Comments Initial Comments: PHYSICAL EXAM: General Impression: Alert and oriented x3, acute distress secondary to pain HEENT: Normocephalic atraumatic, extra-ocular movements intact, pupils equal and reactive to light bilaterally, mucous membranes moist. Cardiovascular: Heart regular rate and rhythm Chest: Able to complete full sentences, no retractions, no tachypnea Abdomen: abdomen soft, non-tender, non-distended, no organomegaly Musculoskeletal: Pulses present and equal in all extremities, no peripheral edema Motor: no focal deficits noted Neurological: CN II-XII grossly intact, no focal motor or sensory deficits noted Skin: Intact with no visualized rashes Psych: Normal affect and mood Limitations: no limitations Course Vital Signs 03/07/24 07:39 Temperature 97.4 F L Pulse Rate 57 L Respiratory 20 Rate Blood Pressure 163/84 O2 Sat by Pulse 100 Oximetry Medical Decision Making - Medical Decision Making Was pt. sent in by a medical professional or institution (, PA, WATER INSPECTOR, urgent care, hospital, or long term...) When possible be specific @ -No Did you speak to anyone other than the patient for history (EMS, parent, family, police, friend...)? What history was obtained from this source @ -No Did you review nursing and triage notes (agree or disagree)? Why? @ -I reviewed and agree with nursing and triage notes Were old charts reviewed (outside hosp., previous admission, EMS record, old EKG, old radiological studies, urgent care reports/EKG's, long term records)? Report findings @ -No old charts were reviewed Differential Diagnosis (chest pain, altered mental status, abdominal pain women, abdominal pain men, vaginal bleeding, musculoskeletal, weakness, fever, dyspnea, syncope, headache, dizziness, GI bleed, back pain, seizure, CVA, palpatations, mental health)? @ -Differential Back Pain: Strain, zoster, cauda equina syndrome, epidural abscess, vertebral os teomyelitis, discitis, fracture, subluxation, disc herniation, DJD, spinal stenosis, dissection, AAA, pancreatitis, peptic ulcer disease, pyelonephritis, kidney stone, this is not meant to be an all-inclusive list. EKG interpreted by me (3pts min.). @ -None done X-rays interpreted by me (1pt min.). @ -None done CT interpreted by me (1pt min.). @ -CT shows no acute fractures U/S interpreted by me (1pt. min.). @ -None done What testing was considered but not performed or refused? (CT, X-rays, U/S, labs)? Why? @ -None What meds were considered but not given or refused? Why? @ -None Was smoking cessation discussed for >3mins.? @ -No Were there social determinants of health that impacted care today? How? (Homelessness, low income, unemployed, alcoholism, drug addiction, transportation, low edu. Level, literacy, decrease access to med. care, senior living, rehab)? @ -No Was there de-escalation of care discussed even if they declined (Discuss DNR or withdrawal of care, Hospice)? DNR status @ -No What co-morbidities impacted this encounter? (DM, HTN, Smoking, COPD, CAD, Cancer, CVA, ARF, Chemo, Hep., AIDS, mental health diagnosis, sleep apnea, morbid obesity)? @ -None Was patient admitted / discharged? Hospital course, mention meds given and route, prescriptions, significant lab abnormalities, going to OR and other pertinent info. @ -63-year-old male presents to the emergency department after fall. Presents with symptoms of back pain however given extensive history CT ordered. Patient has no red flag symptoms. Vital signs stable. Physical exam shows distress male with no neurologic findings. CT shows no acute processes. Patient given analgesics reevaluated at bedside 9:50 AM found to be in stable condition. Patient discharged advised follow-up with spine surgeon. Patient provided prescription for outpatient analgesics Did you discuss the management of the patient with other professionals (professionals i.e. , PA, WATER INSPECTOR, lab, RT, psych nurse, social scientist, hand alterations seamstress, teacher, business banking officer, pillowcase turner)? Give summary @ -No Was critical care preformed (if so, how long)? @ -No Undiagnosed new problem with uncertain prognosis? @ -No Drug Therapy requiring intensive monitoring for toxicity (Heparin, Nitro, Insulin, Cardizem)? @ -No Were any procedures done? @ -No Diagnosis/symptom? Acute, or Chronic, or Acute on Chronic? Uncomplicated (without systemic symptoms) or Complicated (systemic symptoms)? @ -Back strain Side effects of treatment? @ -No Exacerbation, Progression, or Severe Exacerbation? @ -No Poses a threat to life or bodily function? How? (Chest pain, [place], [place], pneumonia, PE, COPD, DKA, ARF, appy, cholecystitis, CVA, Diverticulitis, Homicidal, Suicidal, threat to staff... and all critical care pts) @ -yes Disposition Clinical Impression: Back strain Disposition: HOME SELF-CARE Condition: Good Instructions (If sedation given, give patient instructions): Low Back Strain (ED) Prescriptions: HYDROcodone/APAP 5-325MG [[place] 5-325] 1 tab PO Q6HR PRN 3 Days #12 tab PRN Reason: Severe Pain Is patient prescribed a controlled substance at d/c from ED?: Yes If prescribed controlled substance>3 days was MAPS reviewed?: Prescribed <3 Days Referrals: Josr Ordonez DO [Doctor of Osteopathic Medicine] - 1-2 days Tiburcio Mancera DO [Doctor of Osteopathic Medicine] - 1-2 days Time of Disposition: 09:52
[2024-03-07] MEDS: HYDROmorphone 1 MG/ML 1 ML SYRINGE IM STA (08:14)
--- NOTE | 2024-03-07 08:55 | CT ---
EXAMINATION TYPE: CT lumbar spine wo con DATE OF EXAM: 03/07/2024 8:34 AM COMPARISON: 11/06/2019. CLINICAL INDICATION: Male, 63 years old with history of fall; [facility], LOWER BACK PAIN TECHNIQUE: Multiple axial images were obtained from the midportion of T11 through the sacroiliac luis antonio nts. Soft tissue and bone windows in coronal and sagittal planes were obtained and reviewed. 3-D ref ormats of the bones were created on a separate workstation and submitted for review. Contrast used: mL of , (None, if empty). Oral contrast used: (None, if empty). CT DLP: 1733.7 mGycm, Automated exposure control for dose reduction was used. FINDINGS: Alignment: There are 5 lumbar type vertebral bodies within normal alignment. Bone: The large severe facet joint arthropathy throughout the lower spine. Partial ankylosis of the s acroiliac joints. Scattered disc space narrowing osteophyte formation throughout the lumbar spine. No evidence of fracture. Discs: T12-L1: No spinal canal or neural foraminal stenosis is identified. L1-L2: Facet joint arthropathy and disc bulging result in mild spinal canal stenosis and mild right n eural foraminal stenosis. There is a Large osteophyte near the left neural foramen with severe stenos is. L2-L3: Facet joint arthropathy and disc bulging result in mild spinal canal stenosis and mild bilater al neural foraminal stenosis. L3-L4: Facet joint arthropathy and disc bulging result in moderate spinal canal stenosis and moderate bilateral neural foraminal stenosis. L4-L5: Facet joint arthropathy and disc bulging result in moderate to severe spinal canal stenosis an d moderate to severe bilateral neural foraminal stenosis. L5-S1: Facet joint arthropathy and disc bulging result in moderate spinal canal stenosis and moderate bilateral neural foraminal stenosis. Other: None IMPRESSION: 1. No evidence for spinal fracture. 2. Moderate to severe facet joint arthropathy throughout the lower spine without evidence of fracture . 3. Multilevel neural foraminal and spinal canal stenosis as described above which should be further e valuated with MRI if not recently performed. [facility], , 03/07/2024 8:53 AM
[2024-03-07 09:59] VITALS: BP 132/78; PULSE 80; RESP 18
== END 2024-03-07 09:58 | disposition home or self-care (01) ==
LOC: EC 07:36
DX: S39.012A Strain of muscle, fascia and tendon of lower back, initial encounter (principal); Z88.6 Allergy status to analgesic agent; Z88.8 Allergy status to other drugs, medicaments and biological substances; W01.0XXA Fall on same level from slipping, tripping and stumbling without subsequent striking against object, initial encounter
CPT/HCPCS: 96372; 72131; 99283; J1171; 99284

== ENCOUNTER 2024-07-26 10:50 | Emergency (ER) | payer MEDICARE, OTHER ==
[2024-07-26 11:27] LABS: Basophils # (A) 0.02 10*3/uL (0.00-0.10); Basophils % (A) 0.3 %; Eosinophils # (A) 0.05 10*3/uL (0.04-0.35); Eosinophils % (A) 0.8 %; HGB 12.7 g/dL (13.0-17.0); Lymphocytes # (A) 1.98 10*3/uL (0.90-5.00); Lymphocytes % (A) 33.1 %; MCH 24.6 pg (27.0-32.0); MCHC 33.4 g/dL (32.0-37.0); MCV 73.5 fL (80.0-97.0); Mean Platelet Volume 10.2 fL (9.5-12.2); Monocytes # (A) 0.24 10*3/uL (0.20-1.00); Neutrophils # (A) 3.68 10*3/uL (1.80-7.70); Neutrophils % (A) 61.5 %; Platelet Count 308 10*3/uL (140-440); RBC 5.17 10*6/uL (4.40-5.60); WBC 5.99 10*3/uL (4.50-10.00)
[2024-07-26 11:29] VITALS: RESP 18
[2024-07-26 11:38] LABS: ALT 22 U/L (4-49); AST 26 U/L (17-59); African American GFR (CKD) 82 (>60 ml/min/1.73 sqM); Albumin 4.3 g/dL (3.5-5.0); Alkaline Phosphatase 57 U/L (38-126); Anion Gap 16 mmol/L; Blood Urea Nitrogen 18 mg/dL (9-20); Calcium 9.8 mg/dL (8.4-10.2); Carbon Dioxide 22 mmol/L (22-30); Chloride 103 mmol/L (98-107); Glucose 151 mg/dL (74-99); Magnesium 1.6 mg/dL (1.6-2.3); Non-African American GFR(CKD) 71 (>60 ml/min/1.73 sqM); Potassium 3.6 mmol/L (3.5-5.1); Sodium 141 mmol/L (137-145); Total Bilirubin 0.4 mg/dL (0.2-1.3); Total Protein 7.2 g/dL (6.3-8.2)
--- NOTE | 2024-07-26 11:43 | XR ---
EXAMINATION TYPE: XR chest 2V DATE OF EXAM: 07/26/2024 11:40 AM COMPARISON: 01/24/2024 CLINICAL INDICATION: Male, 64 years old with history of Chest Pain, , TECHNIQUE: PA and lateral views FINDINGS: Heart borderline in size. Aorta and pulmonary vasculature within normal limits. No consolidation or p leural effusion. IMPRESSION: Borderline heart size. No acute process seen. [facility], , 07/26/2024 11:41 AM
[2024-07-26 11:47] LABS: NT-Pro-B-Type Natriuretic Pept 240 pg/mL
[2024-07-26 12:01] LABS: INR 0.9 (<1.2); Partial Thromboplastin Time 24.1 sec (22.0-30.0); Prothrombin Time 10.5 sec (10.0-12.5)
[2024-07-26 12:02] LABS: Influenza A Not Detected (Not Detectd); Influenza B Not Detected (Not Detectd); RSV Not Detected (Not Detectd)
[2024-07-26 12:38] VITALS: BP 144/82; PULSE 65; TEMP 98.6
--- NOTE | 2024-07-26 12:39 | ED ---
General Adult HPI - General Chief complaint: Chest Pain Stated complaint: Chest pain Time Seen by Provider: 07/26/24 10:54 Source: patient, RN notes reviewed Mode of arrival: ambulatory Limitations: no limitations - History of Present Illness Initial comments: 64-year-old male presents emergency department complaint of productive cough. Patient has several days. Patient states he has increased cough and nasal congestion. Patient states that he always has some but it seems he worse of brown debris department. Patient states he does have some pain when he coughs. He has no prior cardiac disease denies fevers or chills no headache or dizziness no leg pain or leg swelling no recent traveling. Denies history of hypertension hyperlipidemia diabetes. - Related Data Home Medications Medication Instructions Recorded Confirmed metFORMIN HCL [metFORMIN HCL ER] 750 mg PO BID 04/21/16 05/06/19 Alendronate Sodium [Fosamax] 70 mg PO MO 05/06/19 05/06/19 Diclofenac Sodium Gel [Voltaren 2 gm TOPICAL DAILY PRN 05/06/19 05/06/19 Gel] Ibuprofen 600 mg PO TID PRN 05/06/19 05/06/19 amLODIPine [Norvasc] 5 mg PO DAILY 05/06/19 05/06/19 atenoloL [Tenormin] 50 mg PO DAILY 05/06/19 05/06/19 lisinopriL 40 mg PO DAILY 05/06/19 05/06/19 Previous Rx's Medication Instructions Recorded Amoxicillin/Potassium Clav 1 tab PO Q12HR #20 tab 05/06/19 [Augmentin 875-125 Tablet] metFORMIN HCL [Glucophage] 500 mg PO BID #28 tab 05/24/19 Amoxic-Pot Clav 875-125Mg 1 tab PO Q12HR #20 tab 01/24/24 [Augmentin 875-125] Amoxic-Pot Clav 875-125Mg 1 tab PO BID 7 Days #14 tab 02/13/24 [Augmentin 875-125] HYDROcodone/APAP 5-325MG [[place] 1 tab PO Q6HR PRN 3 Days #12 tab 03/07/24 5-325] Amoxic-Pot Clav 875-125Mg 1 tab PO Q12HR #20 tab 07/26/24 [Augmentin 875-125] Fluticasone Nasal [place] [Flonase 2 spr EA NOSTRIL DAILY #16 gm 07/26/24 Nasal [place]] predniSONE 50 mg PO DAILY #5 tab 07/26/24 Allergies Allergy/AdvReac Type Severity Reaction Status Date / Time aspirin Allergy Unknown Verified 07/26/24 10:53 valsartan Allergy Itching Verified 07/26/24 10:53 Review of Systems ROS Statement: Those systems with pertinent positive or pertinent negative responses have been documented in the HPI. ROS Other: All systems not noted in ROS Statement are negative. 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 Mother Family Medical History: Cancer Additional Family Medical History / Comment(s): Mother at age 42 from breast cancer. Patient has 2 brothers and 2 sisters with no major medical problems besides one sister with MRSA General Exam Limitations: no limitations General appearance: alert, in no apparent distress Head exam: Present: atraumatic, normocephalic, normal inspection Eye exam: Present: normal appearance, PERRL, EOMI. Absent: scleral icterus, conjunctival injection, periorbital swelling ENT exam: Present: normal exam, normal oropharynx, mucous membranes moist Neck exam: Present: normal inspection, full ROM. Absent: tenderness, meningismus, lymphadenopathy Respiratory exam: Present: normal lung sounds bilaterally. Absent: respiratory distress, wheezes, rales, rhonchi, stridor Cardiovascular Exam: Present: regular rate, normal rhythm, normal heart sounds. Absent: systolic murmur, diastolic murmur, rubs, gallop, clicks GI/Abdominal exam: Present: soft, normal bowel sounds. Absent: distended, tenderness, guarding, rebound, rigid Course Vital Signs 07/26/24 07/26/24 07/26/24 10:50 11:22 11:53 Temperature 97.7 F Pulse Rate 67 62 Respiratory 17 18 18 Rate Blood Pressure 165/85 129/76 O2 Sat by Pulse 99 99 Oximetry EKG Findings - EKG Comments: EKG Findings:: EKG performed at 11: 06 sinus rhythm rate of 68 [place] 188 QRS 106 QT/QTc 396/397 - EKG Results: EKG: interpreted by [facility] Medical Decision Making - Medical Decision Making Was pt. sent in by a medical professional or institution (, PA, BIOSTATISTICS MANAGER, urgent care, hospital, or jail...) When possible be specific @ -No Did you speak to anyone other than the patient for history (EMS, parent, family, police, friend...)? What history was obtained from this source @ -No Did you review nursing and triage notes (agree or disagree)? Why? @ -I reviewed and agree with nursing and triage notes Were old charts reviewed (outside hosp., previous admission, EMS record, old EKG, old radiological studies, urgent care reports/EKG's, jail records)? Report findings @ -No old charts were reviewed Differential Diagnosis (chest pain, altered mental status, abdominal pain women, abdominal pain men, vaginal bleeding, weakness, fever, dyspnea, syncope, headache, dizziness, GI bleed, back pain, seizure, CVA, palpatations, mental health, musculoskeletal)? @ -Differential Dyspnea: Coronary syndrome, arrhythmia, tamponade, asthma, COPD, pulmonary embolism, pneumonia, pneumothorax, pulmonary effusion, anaphylaxis, diabetic ketoacidosis, flailed chest, pulmonary contusion, diaphragmatic rupture, anemia, neuromuscular, this is not meant to be an all-inclusive list. COVID 19, RSV, influenza, pneumonia, acute bronchitis, URI, this list is not all inclusive EKG interpreted by me (3pts min.). @ -As above X-rays interpreted by me (1pt min.). @X-ray shows no acute cardiopulmonary process. CT interpreted by me (1pt min.). @ -None done U/S interpreted by me (1pt. min.). @ -None done What testing was considered but not performed or refused? (CT, X-rays, U/S, labs)? Why? @ -None What meds were considered but not given or refused? Why? @ -None Did you discuss the management of the patient with other professionals (professionals i.e. , PA, BIOSTATISTICS MANAGER, lab, RT, psych nurse, social worker delinquency prevention, slater apprentice, teacher, commissioned fire officer, mental health case manager)? Give summary @ -No Was smoking cessation discussed for >3mins.? @ -No Was critical care preformed (if so, how long)? @ -No Were there social determinants of health that impacted care today? How? (Homelessness, low income, unemployed, alcoholism, drug addiction, transpor tation, low edu. Level, literacy, decrease access to med. care, fdc, rehab)? @ -No Was there de-escalation of care discussed even if they declined (Discuss DNR or withdrawal of care, Hospice)? DNR status @ -No What co-morbidities impacted this encounter? (DM, HTN, Smoking, COPD, CAD, Cancer, CVA, ARF, Chemo, Hep., AIDS, mental health diagnosis, sleep apnea, morbid obesity)? @ -None Was patient admitted / discharged? Hospital course, mention meds given and route, prescriptions, significant lab abnormalities, going to OR and other pertinent info. @ -Discharge patient presented for URI, cough congestion worsening symptoms. Patient has a negative workup at this time. Patient negative troponin, negative D-dimer. Patient does not have any current complaints chest pain he does have some chest wall pain patient will be discharged in stable condition return for as discussed. Undiagnosed new problem with uncertain prognosis? @ -No Drug Therapy requiring intensive monitoring for toxicity (Heparin, Nitro, Insulin, Cardizem)? @ -No Were any procedures done? @ -No Diagnosis/symptom? @ -Tracheobronchitis Acute, or Chronic, or Acute on Chronic? @ -Acute Uncomplicated (without systemic symptoms) or Complicated (systemic symptoms)? @ -complicated Side effects of treatment? @ -No Exacerbation, Progression, or Severe Exacerbation? @ -No Poses a threat to life or bodily function? How? (Chest pain, [place], [place], pneumonia, PE, COPD, DKA, ARF, appy, cholecystitis, CVA, Diverticulitis, Homicidal, Enriqueta cidal, threat to staff... and all critical care pts) @ -No - Lab Data Result diagrams: 07/26/24 11:19 07/26/24 11:19 Lab Results 07/26/24 07/26/2407/26/25 Range/Units 11:19 11:19 11:19 WBC 5.99 (4.50-10.00) 10*3/uL RBC 5.17 (4.40-5.60) 10*6/uL Hgb 12.7 L (13.0-17.0) g/dL Hct 38.0 L (39.6-50.0) % MCV 73.5 L (80.0-97.0) fL MCH 24.6 L (27.0-32.0) pg MCHC 33.4 (32.0-37.0) g/dL Plt Count 308 (140-440) 10*3/uL MPV 10.2 (9.5-12.2) fL Immature Gran % (Auto) 0.3 % Neutrophils % 61.5 % Lymphocytes % 33.1 % Monocytes % 4.0 % Eosinophils % 0.8 % Basophils % 0.3 % Immature Gran # 0.02 (0.00-0.04) 10*3/uL Neutrophils # 3.68 (1.80-7.70) 10*3/uL Lymphocytes # 1.98 (0.90-5.00) 10*3/uL Monocytes # 0.24 (0.20-1.00) 10*3/uL Eosinophils # 0.05 (0.04-0.35) 10*3/uL Basophils # 0.02 (0.00-0.10) 10*3/uL PT 10.5 (10.0-12.5) sec INR 0.9 (<1.2) APTT 24.1 (22.0-30.0) sec D-Dimer 0.38 (<0.60) mg/L FEU Sodium 141 (137-145) mmol/L Potassium 3.6 (3.5-5.1) mmol/L Chloride 103 (98-107) mmol/L Carbon Dioxide 22 (22-30) mmol/L Anion Gap 16 mmol/L BUN 18 (9-20) mg/dL Creatinine 1.11 (0.66-1.25) mg/dL Est GFR (CKD-EPI)AfAm 82 (>60 ml/min/1.73 sqM) Est GFR (CKD-EPI)NonAf 71 (>60 ml/min/1.73 sqM) Glucose 151 H (74-99) mg/dL Calcium 9.8 (8.4-10.2) mg/dL Magnesium 1.6 (1.6-2.3) mg/dL Total Bilirubin 0.4 (0.2-1.3) mg/dL AST 26 (17-59) U/L ALT 22 (4-49) U/L Alkaline Phosphatase 57 (38-126) U/L Troponin I (0.000-0.034) ng/mL NT-Pro-B Natriuret Pep 240 pg/mL Total Protein 7.2 (6.3-8.2) g/dL Albumin 4.3 (3.5-5.0) g/dL Influenza Type A (PCR) (Not Detectd) Influenza Type B (PCR) (Not Detectd) RSV (PCR) (Not Detectd) SARS-CoV-2 (PCR) (Not Detectd) 07/26/24 07/26/24 Range/Units 11:19 11:19 WBC (4.50-10.00) 10*3/uL RBC (4.40-5.60) 10*6/uL Hgb (13.0-17.0) g/dL Hct (39.6-50.0) % MCV (80.0-97.0) fL MCH (27.0-32.0) pg MCHC (32.0-37.0) g/dL Plt Count (140-440) 10*3/uL MPV (9.5-12.2) fL Immature Gran % (Auto) % Neutrophils % % Lymphocytes % % Monocytes % % Eosinophils % % Basophils % % Immature Gran # (0.00-0.04) 10*3/uL Neutrophils # (1.80-7.70) 10*3/uL Lymphocytes # (0.90-5.00) 10*3/uL Monocytes # (0.20-1.00) 10*3/uL Eosinophils # (0.04-0.35) 10*3/uL Basophils # (0.00-0.10) 10*3/uL PT (10.0-12.5) sec INR (<1.2) APTT (22.0-30.0) sec D-Dimer (<0.60) mg/L FEU Sodium (137-145) mmol/L Potassium (3.5-5.1) mmol/L Chloride (98-107) mmol/L Carbon Dioxide (22-30) mmol/L Anion Gap mmol/L BUN (9-20) mg/dL Creatinine (0.66-1.25) mg/dL Est GFR (CKD-EPI)AfAm (>60 ml/min/1.73 sqM) Est GFR (CKD-EPI)NonAf (>60 ml/min/1.73 sqM) Glucose (74-99) mg/dL Calcium (8.4-10.2) mg/dL Magnesium (1.6-2.3) mg/dL Total Bilirubin (0.2-1.3) mg/dL AST (17-59) U/L ALT (4-49) U/L Alkaline Phosphatase (38-126) U/L Troponin I <0.012 (0.000-0.034) ng/mL NT-Pro-B Natriuret Pep pg/mL Total Protein (6.3-8.2) g/dL Albumin (3.5-5.0) g/dL Influenza Type A (PCR) Not Detected (Not Detectd) Influenza Type B (PCR) Not Detected (Not Detectd) RSV (PCR) Not Detected (Not Detectd) SARS-CoV-2 (PCR) Not Detected (Not Detectd) Disposition Clinical Impression: Acute tracheobronchitis, Chest wall pain Disposition: HOME SELF-CARE Condition: Stable Instructions (If sedation given, give patient instructions): Costochondritis (ED), Acute Bronchitis (ED) Additional Instructions: Please return to the Emergency Department if symptoms worsen or any other concerns. Prescriptions: Amoxic-Pot Clav 875-125Mg [Augmentin 875-125] 1 tab PO Q12HR #20 tab Fluticasone Nasal [place] [Flonase Nasal [place]] 2 spr EA NOSTRIL DAILY #16 gm predniSONE 50 mg PO DAILY #5 tab Is patient prescribed a controlled substance at d/c from ED?: No Referrals: Antolin Garcia DO [Primary Care Provider] - 1-2 days Time of Disposition: 12:39
== END 2024-07-26 12:46 | disposition home or self-care (01) ==
LOC: EC 10:50
DX: J20.9 Acute bronchitis, unspecified (principal); Z88.6 Allergy status to analgesic agent; Z88.8 Allergy status to other drugs, medicaments and biological substances
CPT/HCPCS: 36415; 71046; 80053; 83735; 83880; 84484; 85025; 85379; 85610; 85730; 87636; 93005; 99285

== ENCOUNTER 2024-08-09 08:36 | Observation (INO) | payer MEDICARE ==
[2024-08-09 09:48] LABS: Basophils # (A) 0.02 10*3/uL (0.00-0.10); Basophils % (A) 0.2 %; Eosinophils # (A) 0.06 10*3/uL (0.04-0.35); Eosinophils % (A) 0.7 %; HCT 41.1 % (39.6-50.0); HGB 13.4 g/dL (13.0-17.0); Lymphocytes # (A) 2.23 10*3/uL (0.90-5.00); Lymphocytes % (A) 27.2 %; MCH 23.9 pg (27.0-32.0); MCHC 32.6 g/dL (32.0-37.0); MCV 73.4 fL (80.0-97.0); Mean Platelet Volume 11.2 fL (9.5-12.2); Monocytes # (A) 0.47 10*3/uL (0.20-1.00); Monocytes % (A) 5.7 %; Neutrophils # (A) 5.39 10*3/uL (1.80-7.70); Platelet Count 269 10*3/uL (140-440); RDW 15.5 % (11.5-14.5); WBC 8.19 10*3/uL (4.50-10.00)
[2024-08-09 09:57] LABS: Partial Thromboplastin Time 24.1 sec (22.0-30.0); Prothrombin Time 10.7 sec (10.0-12.5)
--- NOTE | 2024-08-09 09:59 | XR ---
EXAMINATION TYPE: XR chest 2V DATE OF EXAM: 08/09/2024 9:55 AM COMPARISON: 07/26/2024 CLINICAL INDICATION: Male, 64 years old with history of Chest Pain, , TECHNIQUE: PA and lateral views FINDINGS: The cardiomediastinal silhouette, aorta, and pulmonary vasculature are within normal limits. Lungs an d pleural spaces are clear. IMPRESSION: No acute cardiopulmonary process. [facility], , 08/09/2024 9:57 AM
[2024-08-09 10:04] LABS: ALT 30 U/L (4-49); AST 29 U/L (17-59); African American GFR (CKD) 67 (>60 ml/min/1.73 sqM); Albumin 4.3 g/dL (3.5-5.0); Alkaline Phosphatase 60 U/L (38-126); Anion Gap 10 mmol/L; Blood Urea Nitrogen 32 mg/dL (9-20); Calcium 10.5 mg/dL (8.4-10.2); Carbon Dioxide 25 mmol/L (22-30); Chloride 105 mmol/L (98-107); Glucose 125 mg/dL (74-99); Magnesium 1.7 mg/dL (1.6-2.3); Non-African American GFR(CKD) 58 (>60 ml/min/1.73 sqM); Potassium 4.1 mmol/L (3.5-5.1); Sodium 140 mmol/L (137-145); Total Bilirubin 0.7 mg/dL (0.2-1.3); Total Protein 7.2 g/dL (6.3-8.2)
--- NOTE | 2024-08-09 10:41 | ED ---
General Adult HPI - General Chief complaint: Chest Pain Stated complaint: chest pain,left arm pain Time Seen by Provider: 08/09/24 08:49 Source: patient, RN notes reviewed Mode of arrival: ambulatory Limitations: no limitations - History of Present Illness Initial comments: 64 year old male with a past medical history significant for CAD, diabetes, and hypertension presents to the ED for evaluation of chest pain radiating to the left arm. Patient states that he does have a history of CAD, hypertension hyperlipidemia diabetes states pain is left-sided pressure type symptoms he does have left arm associated pain. Denies abdominal pain no history of aneurysms. He reports having a recent URI in the past but says his most recent episodes started about 2 weeks ago. He isn't sure if it is more so due to muscle pain or true chest pain. He denies any radiation of pain to the back. - Related Data Home Medications Medication Instructions Recorded Confirmed metFORMIN HCL [metFORMIN HCL ER] 750 mg PO BID 04/21/16 07/26/24 Diclofenac Sodium Gel [Voltaren 2 gm TOPICAL DAILY PRN 05/06/19 07/26/24 Gel] lisinopriL 40 mg PO DAILY 05/06/19 07/26/24 Avc Gummies 1 dose PO DAILY 07/26/24 07/26/24 Chlorthalidone [Hygroton] 25 mg PO PC-LUNCH 07/26/24 07/26/24 Triamcinolone 0.1% Cream [Kenalog 1 applic TOPICAL DAILY 07/26/24 07/26/24 0.1% Cream] Vitamin A (Unknown Dose) 1 dose PO DAILY 07/26/24 07/26/24 Vitamin B (Unknown) 1 dose PO DAILY 07/26/24 07/26/24 Vitamin C (Unknown) 1 dose PO DAILY 07/26/24 07/26/24 Vitamin D (Unknown) 1 dose PO DAILY 07/26/24 07/26/24 amLODIPine 10 mg PO PC-LUNCH 07/26/24 07/26/24 Previous Rx's Medication Instructions Recorded Fluticasone Nasal [place] [Flonase 2 spr EA NOSTRIL DAILY #16 gm 07/26/24 Nasal [place]] Allergies Allergy/AdvReac Type Severity Reaction Status Date / Time aspirin Allergy Unknown Verified 08/09/24 10:49 valsartan Allergy Itching Verified 08/09/24 10:49 Review of Systems ROS Statement: Those systems with pertinent positive or pertinent negative responses have been documented in the HPI. ROS Other: All systems not noted in ROS Statement are negative. 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 Mother Family Medical History: Cancer Additional Family Medical History / Comment(s): Mother at age 42 from b reast cancer. Patient has 2 brothers and 2 sisters with no major medical problems besides one sister with MRSA General Exam Limitations: no limitations General appearance: alert, in no apparent distress Head exam: Present: atraumatic, normocephalic, normal inspection Eye exam: Present: normal appearance, PERRL, EOMI. Absent: scleral icterus, conjunctival injection, periorbital swelling ENT exam: Present: normal exam, normal oropharynx, mucous membranes moist Neck exam: Present: normal inspection, full ROM. Absent: tenderness, meningismus, lymphadenopathy Respiratory exam: Present: normal lung sounds bilaterally. Absent: respiratory distress, wheezes, rales, rhonchi, stridor, chest wall tenderness Cardiovascular Exam: Present: regular rate, normal rhythm, normal heart sounds. Absent: systolic murmur, diastolic murmur, rubs, gallop, clicks GI/Abdominal exam: Present: soft, normal bowel sounds. Absent: distended, tenderness, guarding, rebound, rigid Course Vital Signs 08/09/24 08:55 Temperature 98 F Pulse Rate 92 Respiratory 18 Rate Blood Pressure 142/80 O2 Sat by Pulse 98 Oximetry EKG Findings - EKG Comments: EKG Findings:: EKG performed at 9: 17 sinus rhythm rate 75 [place] 189 QRS 83 QT/QTc 374/4 3 - EKG Results: EKG: interpreted by [facility] Medical Decision Making - Medical Decision Making Was pt. sent in by a medical professional or institution (, PA, INDUSTRIAL CLEANER, urgent care, hospital, or intermediate...) When possible be specific @ -No Did you speak to anyone other than the patient for history (EMS, parent, family, police, friend...)? What history was obtained from this source @ -No Did you review nursing and triage notes (agree or disagree)? Why? @ -I reviewed and agree with nursing and triage notes Were old charts reviewed (outside hosp., previous admission, EMS record, old EKG, old radiological studies, urgent care reports/EKG's, intermediate records)? Report findings @ -No old charts were reviewed Differential Diagnosis (chest pain, altered mental status, abdominal pain women, abdominal pain men, vaginal bleeding, weakness, fever, dyspnea, syncope, headache, dizziness, GI bleed, back pain, seizure, CVA, palpatations, mental health, musculoskeletal)? @ -Differential Chest Pain: Stable Angina, Unstable Angina, STEMI, NSTEMI Aortic Dissection, Pneumothorax, Musculoskeletal, Esophageal Spasm GERD, Cholecystitis, Pancreatitis, Zoster, this is not meant to be an all-inclusive list. EKG interpreted by me (3pts min.). @ -As above X-rays interpreted by me (1pt min.). @ -Chest x-ray shows no acute cardiopulmonary process. CT interpreted by me (1pt min.). @ -None done U/S interpreted by me (1pt. min.). @ -None done What testing was considered but not performed or refused? (CT, X-rays, U/S, lab s)? Why? @ -None What meds were considered but not given or refused? Why? @ -None Did you discuss the management of the patient with other professionals (professionals i.e. , PA, INDUSTRIAL CLEANER, lab, RT, psych nurse, social welfare clerk, yardage caller, teacher, property utilization officer, outpatient case manager)? Give summary @ -EMH for admission Was smoking cessation discussed for >3mins.? @ -No Was critical care preformed (if so, how long)? @ -No Were there social determinants of health that impacted care today? How? (Homelessness, low income, unemployed, alcoholism, drug addiction, transportation, low edu. Level, literacy, decrease access to med. care, fpc, rehab)? @ -No Was there de-escalation of care discussed even if they declined (Discuss DNR or withdrawal of care, Hospice)? DNR status @ -No What co-morbidities impacted this encounter? (DM, HTN, Smoking, COPD, CAD, Cancer, CVA, ARF, Chemo, Hep., AIDS, mental health diagnosis, sleep apnea, morbid obesity)? @ -CAD, hyperlipidemia hypertension diabetes Was patient admitted / discharged? Hospital course, mention meds given and route, prescriptions, significant lab abnormalities, going to OR and other pertinent info. @ -Admitted initial troponin, EKG is unchanged. Patient does have multiple risk factors complaint of left-sided chest pain left arm pain. Patient be admitted for cardiac rule out. Undiagnosed new problem with uncertain prognosis? @ -No Drug Therapy requiring intensive monitoring for toxicity (Heparin, Nitro, Insulin, Cardizem)? @ -No Were any procedures done? @ -No Diagnosis/symptom? @ -Chest pain Acute, or Chronic, or Acute on Chronic? @ -Acute Uncomplicated (without systemic symptoms) or Complicated (systemic symptoms)? @Complicated Side effects of treatment? @ -No Exacerbation, Progression, or Severe Exacerbation? @ -No Poses a threat to life or bodily function? How? (Chest pain, [place], [place], pneumonia, PE, COPD, DKA, ARF, appy, cholecystitis, CVA, Diverticulitis, Homicidal, Suicidal, threat to staff... and all critical care pts) @ -Yes possible ACS risk to cardiac function - Lab Data Result diagrams: 08/09/24 09:40 08/09/24 09:40 Lab Results 08/09/24 08/09/24 08/09/24 Range/Units 09:40 09:40 09:40 WBC 8.19 (4.50-10.00) 10*3/uL RBC 5.60 (4.40-5.60) 10*6/uL Hgb 13.4 (13.0-17.0) g/dL Hct 41.1 (39.6-50.0) % MCV 73.4 L (80.0-97.0) fL MCH 23.9 L (27.0-32.0) pg MCHC 32.6 (32.0-37.0) g/dL Plt Count 269 (140-440) 10*3/uL MPV 11.2 (9.5-12.2) fL Immature Gran % (Auto) 0.2 % Neutrophils % 66.0 % Lymphocytes % 27.2 % Monocytes % 5.7 % Eosinophils % 0.7 % Basophils % 0.2 % Immature Gran # 0.02 (0.00-0.04) 10*3/uL Neutrophils # 5.39 (1.80-7.70) 10*3/uL Lymphocytes # 2.23 (0.90-5.00) 10*3/uL Monocytes # 0.47 (0.20-1.00) 10*3/uL Eosinophils # 0.06 (0.04-0.35) 10*3/uL Basophils # 0.02 (0.00-0.10) 10*3/uL PT 10.7 (10.0-12.5) sec INR 1.0 (<1.2) APTT 24.1 (22.0-30.0) sec Sodium 140 (137-145) mmol/L Potassium 4.1 (3.5-5.1) mmol/L Chloride 105 (98-107) mmol/L Carbon Dioxide 25 (22-30) mmol/L Anion Gap 10 mmol/L BUN 32 H (9-20) mg/dL Creatinine 1.31 H (0.66-1.25) mg/dL Est GFR (CKD-EPI)AfAm 67 (>60 ml/min/1.73 sqM) Est GFR (CKD-EPI)NonAf 58 (>60 ml/min/1.73 sqM) Glucose 125 H (74-99) mg/dL Calcium 10.5 H (8.4-10.2) mg/dL Magnesium 1.7 (1.6-2.3) mg/dL Total Bilirubin 0.7 (0.2-1.3) mg/dL AST 29 (17-59) U/L ALT 30 (4-49) U/L Alkaline Phosphatase 60 (38-126) U/L Troponin I (0.000-0.034) ng/mL Total Protein 7.2 (6.3-8.2) g/dL Albumin 4.3 (3.5-5.0) g/dL 08/09/24 Range/Units 09:40 WBC (4.50-10.00) 10*3/uL RBC (4.40-5.60) 10*6/uL Hgb (13.0-17.0) g/dL Hct (39.6-50.0) % MCV (80.0-97.0) fL MCH (27.0-32.0) pg MCHC (32.0-37.0) g/dL Plt Count (140-440) 10*3/uL MPV (9.5-12.2) fL Immature Gran % (Auto) % Neutrophils % % Lymphocytes % % Monocytes % % Eosinophils % % Basophils % % Immature Gran # (0.00-0.04) 10*3/uL Neutrophils # (1.80-7.70) 10*3/uL Lymphocytes # (0.90-5.00) 10*3/uL Monocytes # (0.20-1.00) 10*3/uL Eosinophils # (0.04-0.35) 10*3/uL Basophils # (0.00-0.10) 10*3/uL PT (10.0-12.5) sec INR (<1.2) APTT (22.0-30.0) sec Sodium (137-145) mmol/L Potassium (3.5-5.1) mmol/L Chloride (98-107) mmol/L Carbon Dioxide (22-30) mmol/L Anion Gap mmol/L BUN (9-20) mg/dL Creatinine (0.66-1.25) mg/dL Est GFR (CKD-EPI)AfAm (>60 ml/min/1.73 sqM) Est GFR (CKD-EPI)NonAf (>60 ml/min/1.73 sqM) Glucose (74-99) mg/dL Calcium (8.4-10.2) mg/dL Magnesium (1.6-2.3) mg/dL Total Bilirubin (0.2-1.3) mg/dL AST (17-59) U/L ALT (4-49) U/L Alkaline Phosphatase (38-126) U/L Troponin I <0.012 (0.000-0.034) ng/mL Total Protein (6.3-8.2) g/dL Albumin (3.5-5.0) g/dL Disposition Clinical Impression: Chest pain Disposition: ADMITTED IP TO THIS HOSP Condition: Fair Referrals: Antolin Garcia DO [Primary Care Provider] - 1-2 days Time of Disposition: 10:58
[2024-08-09] MEDS ORDERED: NITROGLYCERIN SL TABS 0.4 MG TAB SUBLINGUAL PRN (10:53)
[2024-08-09] MEDS ORDERED: DEXTROSE 50% SYRINGE 50 ML IVP PRN ×2 (14:27)
--- NOTE | 2024-08-09 14:28 | P.HPIM ---
History of Present Illness H&P Date: 08/09/24 History of present illness; patient is 64-year-old gentleman with past medical history significant for brain aneurysm status post coiling, hypertension, diabetes mellitus presents the ER because of chest pain. He was all right this morning when he experiencing left-sided chest pain, was pressure-like, nonradiating, no aggravating or relieving factors associated with chest pain. There was no complaint of orthopnea or PND. There was no complaint of shortness of breath at that time. There was no episode of diaphoresis during this episode of chest pain. Denies any nausea, vomiting abdominal pain. Patient denies any complaint of dizziness. There is no complaint of headache. Because of chest pain, patient came to the ER Initial lab work done in the ER showed WBC 8.19, hemoglobin 13.4, platelet count 216, sodium 140, potassium 4.1, BUN 32, creatinine 1.31, glucose 125, calcium 10.5, magnesium 1.7, bilirubin 0.7, AST 29, ALT 30, troponin 0.012 EKG done in the ER showed heart rate of 75 , no ST segment elevation or depression seen, no T-wave inversions seen. Chest x-ray done in the ER showed no acute cardiopulmonary process Patient admitted to internal medicine service REVIEW OF SYSTEMS: CONSTITUTIONAL: No fever, no malaise, no fatigue. HEENT: No recent visual problems or hearing problems. Denied any sore throat. CARDIOVASCULAR: As mentioned above. PULMONARY: As mentioned above GASTROINTESTINAL: No diarrhea, no nausea, no vomiting, no abdominal pain. NEUROLOGICAL: No headaches, no weakness, no numbness. HEMATOLOGICAL: Denies any bleeding or petechiae. GENITOURINARY: Denies any burning micturition, frequency, or urgency. MUSCULOSKELETAL/RHEUMATOLOGICAL: Denies any joint pain, swelling, or any muscle pain. ENDOCRINE: Denies any polyuria or polydipsia. The rest of the 14-point review of systems is negative. PHYSICAL EXAMINATION: GENERAL: The patient is alert and oriented x3, not in any acute distress. Well developed, well nourished. HEENT: Pupils are round and equally reacting to light. EOMI. No scleral icterus. No conjunctival pallor. Normocephalic, atraumatic. No pharyngeal erythema. No thyromegaly. CARDIOVASCULAR: S1 and S2 present. No murmurs, rubs, or gallops. PULMONARY: Chest is clear to auscultation, no wheezing or crackles. ABDOMEN: Soft, nontender, nondistended, normoactive bowel sounds. No palpable organomegaly. MUSCULOSKELETAL: No joint swelling or deformity. EXTREMITIES: No cyanosis, clubbing, or pedal edema. NEUROLOGICAL: Gross neurological examination did not reveal any focal deficits. SKIN: No rashes. Assessment and plan Chest pain, rule out acute coronary syndrome History of cerebral aneurysm requiring coiling History of hypertension History of diabetes mellitus Monitor vital signs Monitor CBC Monitor CMP Continue telemetry monitoring Trend troponin Ordered D-dimer Ordered lipid panel Order HbA1c level Ordered 2D echo Resume home meds Consult cardiology Labs and medication were reviewed.. Continue same treatment. Continue with symptomatic treatment. Resume home medication. Monitor labs and vitals. DVT and GI prophylaxis. Further recommendations as per clinical course of the patient Dictation was produced using [employer] dictation software. please excuse any grammatical, word or spelling errors. 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 Mother Family Medical History: Cancer Additional Family Medical History / Comment(s): Mother at age 42 from breast cancer. Patient has 2 brothers and 2 sisters with no major medical problems besides one sister with MRSA Medications and Allergies Home Medications Medication Instructions Recorded Confirmed Type metFORMIN HCL [metFORMIN HCL ER] 750 mg PO PC-BID@0730,1200 04/21/16 08/09/24 History Diclofenac Sodium Gel [Voltaren 2 gm TOPICAL DAILY PRN 05/06/19 08/09/24 History Gel] lisinopriL 40 mg PO DAILY 05/06/19 08/09/24 History Avc Gummies 1 tab PO DAILY 07/26/24 08/09/24 History Chlorthalidone [Hygroton] 25 mg PO PC-LUNCH 07/26/24 08/09/24 History Fluticasone Nasal [place] [Flonase 2 spr EA NOSTRIL DAILY #16 gm 07/26/24 08/09/24 Rx Nasal [place]] Triamcinolone 0.1% Cream [Kenalog 1 applic TOPICAL DAILY 07/26/24 08/09/24 History 0.1% Cream] Vitamin A (Unknown Dose) 1 tab PO DAILY 07/26/24 08/09/24 History Vitamin B (Unknown) 1 tab PO DAILY 07/26/24 08/09/24 History Vitamin C (Unknown) 1 tab PO DAILY 07/26/24 08/09/24 History Vitamin D (Unknown) 1 tab PO DAILY 07/26/24 08/09/24 History amLODIPine 10 mg PO PC-LUNCH 07/26/24 08/09/24 History Allergies Allergy/AdvReac Type Severity Reaction Status Date / Time aspirin Allergy Unknown Verified 08/09/24 10:49 valsartan Allergy Itching Verified 08/09/24 10:49 Physical Exam Vitals: Vital Signs Temp Pulse Pulse Resp BP Pulse Ox 08/09/24 13:37 85 18 143/78 97 08/09/24 12:00 81 18 99/67 98 08/09/24 11:04 72 08/09/24 11:02 67 18 143/87 97 08/09/24 08:55 98 F 92 18 142/80 98 Intake and Output 08/08/24 08/09/24 08/09/24 22:59 06:59 14:59 Other: Weight 102.058 kg Results CBC & Chem 7: 08/09/24 09:40 08/09/24 09:40 Labs: Abnormal Lab Results - Last 24 Hours (Table) 08/09/24 08/09/24 Range/Units 09:40 09:40 MCV 73.4 L (80.0-97.0) fL MCH 23.9 L (27.0-32.0) pg BUN 32 H (9-20) mg/dL Creatinine 1.31 H (0.66-1.25) mg/dL Glucose 125 H (74-99) mg/dL Calcium 10.5 H (8.4-10.2) mg/dL
[2024-08-09] MEDS: INSULIN LISPRO (HumaLOG) 100 UNIT/ML 10 mL VL SQ SCH (16:44)
[2024-08-09 16:45] LABS: Glucose,Whole Blood 149 mg/dL (70-110)
--- NOTE | 2024-08-09 17:05 | CA ---
Transthoracic Echo Report Name: Leon Lagos Age: 64 Gender: M : 1960 Exam Date: 08/09/2024 11:45 Exam Location: [facility] Ht (in): 70 Wt (lb): 225 Ordering Physician: Troy Wylie Attending/Referring Phys: [id number], Dejan Grizzlyman Aba Elam RDCS Procedure CPT: Indications: Chest Pain Cardiac Hx: Technical Quality: Fair Contrast 1: Definity Total Dose (mL): 2 Contrast 2: Total Dose (mL): MEASUREMENTS (Male / Female) Normal Values 2D ECHO LV Diastolic Diameter PLAX 4.4 cm 4.2 - 5.9 / 3.9 - 5.3 cm LV Systolic Diameter PLAX 2.7 cm IVS Diastolic Thickness 1.3 cm 0.6 - 1.0 / 0.6 - 0.9 cm LVPW Diastolic Thickness 1.4 cm 0.6 - 1.0 / 0.6 - 0.9 cm LV Relative Wall Thickness 0.6 RV Internal Dim ED PLAX 4.0 cm LVOT Diameter 1.7 cm LA Systolic Diameter LX 3.6 cm 3.0 - 4.0 / 2.7 - 3.8 cm LV Diastolic Volume MOD BP 129.9 cm??? 67 - 155 / 56 - 104 cm??? LV Systolic Volume MOD BP 38.7 cm??? - 58 / 19 - 49 cm??? LV Ejection Fraction MOD BP 70.2 % >= 55 % LV Cardiac Index MOD BP 3207.8 cm???/min???m??? LV Diastolic Volume MOD 4C 124.8 cm??? LV Systolic Volume MOD 4C 30.6 cm??? LV Ejection Fraction MOD 4C 75.5 % LV Cardiac Index MOD 4C 3310.3 cm???/min???m??? LV Diastolic Length 4C 9.0 cm LV Systolic Length 4C 6.5 cm LV Diastolic Volume MOD 2C 129.1 cm??? LV Systolic Volume MOD 2C 45.5 cm??? LV Ejection Fraction MOD 2C 64.8 % LV Cardiac Index MOD 2C 2937.7 cm???/min???m??? LV Diastolic Length 2C 9.6 cm LV Systolic Length 2C 7.2 cm LA Volume 57.9 cm??? 18 - 58 / 22 - 52 cm??? LA Volume Index 25.4 cm???/m??? 16 - 28 cm???/m??? DOPPLER MV Area PHT 3.3 cm??? Mitral E Point Velocity 67.8 cm/s Mitral A Point Velocity 87.5 cm/s Mitral E to A Ratio 0.8 MV Deceleration Time 230.4 ms FINDINGS Left Ventricle Left ventricular ejection fraction is estimated at 60-65%. Moderate concentric left ventricular hypertrophy. Normal left ventricular systolic function with no obvious regional wall motion abnormalities. Right Ventricle Normal right ventricular size and function. Unable to estimate the right ventricular systolic pressure. Right Atrium Mild right atrial dilatation. Left Atrium Normal left atrial size. Mitral Valve Mitral annular calcification. No mitral stenosis. No mitral regurgitation. Aortic Valve Trileaflet aortic valve. Diffuse thickening (sclerosis) of the aortic valve cusps without reduced excursion. Aortic valve sclerosis. No aortic valve stenosis or regurgitation. Tricuspid Valve Structurally normal tricuspid valve. No tricuspid stenosis. Trace tricuspid regurgitation. Pulmonic Valve Structurally normal pulmonic valve. No pulmonic stenosis. Mild pulmonic regurgitation. Pericardium No pericardial effusion. Aorta Normal size aortic root and proximal ascending aorta. CONCLUSIONS Reason for test: Chest pain Left ventricular hypertrophy with preserved systolic function Prominent posterior pericardial stripe Aortic sclerosis without stenosis Previewed by: Dr. Jose Perez MD (Electronically Signed) Final Date: 09 Aug 2024 17:04
[2024-08-09 21:20] LABS: Glucose,Whole Blood 154 mg/dL (70-110)
[2024-08-10 06:29] LABS: Glucose,Whole Blood 145 mg/dL (70-110)
[2024-08-10 07:35] VITALS: BP 123/73; PULSE 60; RESP 16; TEMP 97.7
[2024-08-10] MEDS: lisinopriL 20 MG TAB PO SCH (08:21)
[2024-08-10 08:49] LABS: Chol/HDL Ratio 3.85 Ratio
[2024-08-10] MEDS: FLUTICASONE NASAL 50MCG/SPRAY 16GM BTL EA NOSTRIL SCH (10:18)
--- NOTE | 2024-08-10 10:28 | CT ---
EXAMINATION TYPE: CT chest angio for PE DATE OF EXAM: 08/10/2024 COMPARISON: NONE CLINICAL INDICATION: Male, 64 years old with history of Dyspnea, Sternal Chest pain, Positive dimer., TECHNIQUE: CTA scan of the thorax is performed with IV Contrast, patient injected with 60 mL of Isovue 370, pulm onary embolism protocol. MIP Images are created on CT scanner and reviewed. CT DLP: 459.3 mGycm. Automated Exposure Control for Dose Reduction was Utilized. FINDINGS: LUNGS: Mild to moderate left lower lobe linear scarring is redemonstrated. Dependent atelectasis righ t lower lobe is again seen. No suspicious focal consolidation. No pleural effusion or pneumothorax se en bilaterally. HEART: Size within normal limits. Mild coronary artery calcifications present. MEDIASTINUM: Suboptimal study with most dense contrast in the SVC. No convincing CT evidence for acut e pulmonary embolism. No pericardial effusion. Some enhancement of the aorta without aneurysm or diss ection. OTHER: No additional significant abnormality is seen. IMPRESSION: Suboptimal study without acute pulmonary embolism. No suspicious acute pulmonary parenchy mal process. [facility], , 08/10/2024 10:25 AM
--- NOTE | 2024-08-10 10:56 | P.CRDCN ---
History of Present Illness History of present illness: HISTORY OF PRESENT ILLNESS: This is a 64-year-old male with a past medical history significant for hypertension, diabetes, and brain hemorrhage secondary to aneurysm requiring surgery x 2. 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 We have been asked to see the patient in consultation for chest pain. Patient examined at the bedside. Patient presented to the hospital with a chief complaint of chest discomfort. He states he was at [employer] when he started to have stabbing/jolting pains on the left side of his chest. He does report tenderness with palpation of the left chest wall this morning. He denies any shortness of breath. Denies any fever or chills. DIAGNOSTICS: - EKG reveals sinus mechanism with no signs of acute ischemia - Chest xray negative for acute process - Laboratory data: Troponin negative x 3 - Current home cardiac medications include lisinopril 40 mg daily and amlodipine 10 mg daily and chlorthalidone 25 mg daily. - Echocardiogram completed this admission reveals ejection fraction 60 to 65%, moderate concentric LVH - Cardiac catheterization history: Patient denies REVIEW OF SYSTEMS: At the time of my exam: CONSTITUTIONAL: Denies fever or chills. HEENT: Denies blurred vision, vision changes, or eye pain. Denies hemoptysis CARDIOVASCULAR: Denies chest pain. Denies orthopnea. Denies PND. Denies palpitations RESPIRATORY: Denies shortness of breath. GASTROINTESTINAL: Denies abdominal pain. Denies nausea or vomiting. HEMATOLOGIC: Denies bleeding disorders. GENITOURINARY: Denies any blood in urine. SKIN: Denies pruitis. Denies rash. PHYSICAL EXAM: VITAL SIGNS: Reviewed. GENERAL: Well-developed in no acute distress. HEENT: Head is normocephalic. Pupils are equal, round. Sclerae anicteric. Mucous membranes of the mouth are moist. Neck supple. No JVD or thyromegaly LUNGS: Respirations even and unlabored. Lungs essentially clear to auscultation bilaterally. HEART: Regular rate and rhythm. S1 and S2 heard. ABDOMEN: Soft. Nondistended. Nontender. EXTREMITIES: Normal range of motion. No clubbing or cyanosis. Peripheral pulse s intact. No lower extremity edema NEUROLOGIC: Awake and alert. Oriented x 3. 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 Patient to be discharged home on rosuvastatin 10 mg daily. Patient with allergy to aspirin No plans for inpatient stress testing at this time Patient to follow-up in the office with Dr. Perez postdischarge Nurse practitioner note has been reviewed by physician. Signing provider agrees with the documented findings, assessment, and plan of care documented by MATERIALS RESEARCH ENGINEER as a scribe. 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 He denies any street drug use. He drinks alcohol on a rare basis. Past Drug Use History: None Reported - Past Family History Father Additional Family Medical History / Comment(s): Father at 66 from coronary artery disease. Mother Family Medical History: Cancer Additional Family Medical History / Comment(s): Mother at age 42 from breast cancer. Patient has 2 brothers and 2 sisters with no major medical problems besides one sister with MRSA Medications and Allergies Home Medications Medication Instructions Recorded Confirmed Type metFORMIN HCL [metFORMIN HCL ER] 750 mg PO PC-BID@0730,1200 04/21/16 08/09/24 History Diclofenac Sodium Gel [Voltaren 1% 2 gm TOPICAL DAILY PRN 05/06/19 08/09/24 History Gel] lisinopriL 40 mg PO DAILY 05/06/19 08/09/24 History Avc Gummies 1 tab PO DAILY 07/26/24 08/09/24 History Chlorthalidone [Hygroton] 25 mg PO PC-LUNCH 07/26/24 08/09/24 History Fluticasone Nasal [place] [Flonase 2 spr EA NOSTRIL DAILY #16 gm 07/26/24 08/09/24 Rx Nasal [place]] Triamcinolone 0.1% Cream [Kenalog 1 applic TOPICAL DAILY 07/26/24 08/09/24 History 0.1% Cream] Vitamin A (Unknown Dose) 1 tab PO DAILY 07/26/24 08/09/24 History Vitamin B (Unknown) 1 tab PO DAILY 07/26/24 08/09/24 History Vitamin C (Unknown) 1 tab PO DAILY 07/26/24 08/09/24 History Vitamin D (Unknown) 1 tab PO DAILY 07/26/24 08/09/24 History amLODIPine 10 mg PO PC-LUNCH 07/26/24 08/09/24 History Atorvastatin [Lipitor] 20 mg PO HS 30 Days #30 tab 08/10/24 Rx Allergies Allergy/AdvReac Type Severity Reaction Status Date / Time aspirin Allergy Unknown Verified 08/09/24 10:49 valsartan Allergy Itching Verified 08/09/24 10:49 Physical Exam Vitals: Vital Signs Temp Pulse Pulse Pulse Resp BP BP 08/10/24 07:25 97.7 F 60 16 123/73 08/10/24 00:51 98.0 F 64 15 118/70 08/09/24 22:30 18 08/09/24 20:56 97.6 F 66 16 135/77 08/09/24 20:10 80 17 118/67 08/09/24 19:00 72 18 128/64 08/09/24 18:00 70 18 127/74 08/09/24 16:41 71 18 129/72 08/09/24 14:33 71 18 129/74 08/09/24 13:37 85 18 143/78 08/09/24 12:00 81 18 99/67 08/09/24 11:04 72 08/09/24 11:02 67 18 143/87 08/09/24 08:55 98 F 92 18 142/80 Pulse Ox 08/10/24 07:25 97 08/10/24 00:51 100 08/09/24 22:30 08/09/24 20:56 99 08/09/24 20:10 08/09/24 19:00 98 08/09/24 18:00 98 08/09/24 16:41 98 05/19/25 14:33 98 08/09/24 13:37 97 08/09/24 12:00 98 08/09/24 11:04 08/09/24 11:02 97 08/09/24 08:55 98 Intake and Output 08/09/24 08/10/24 08/10/24 22:59 06:59 14:59 Output Total 350 Balance -350 Output: Urine 350 Other: Voiding Method Toilet Toilet Urinal Urinal # Voids 2 Weight 102.058 kg Results 08/09/24 09:40 08/09/24 09:40 Cardiac Enzymes 08/09/24 08/09/24 08/09/24 Range/Units 09:40 09:40 12:32 AST 29 (17-59) U/L Troponin I <0.012 <0.012 (0.000-0.034) ng/mL 08/09/24 Range/Units 15:06 AST (17-59) U/L Troponin I <0.012 (0.000-0.034) ng/mL Coagulation 08/09/24 Range/Units 09:40 PT 10.7 (10.0-12.5) sec APTT 24.1 (22.0-30.0) sec CBC 08/09/24 Range/Units 09:40 WBC 8.19 (4.50-10.00) 10*3/uL RBC 5.60 (4.40-5.60) 10*6/uL Hgb 13.4 (13.0-17.0) g/dL Hct 41.1 (39.6-50.0) % Plt Count 269 (140-440) 10*3/uL Comprehensive Metabolic Panel 08/09/24 Range/Units 09:40 Sodium 140 (137-145) mmol/L Potassium 4.1 (3.5-5.1) mmol/L Chloride 105 (98-107) mmol/L Carbon Dioxide 25 (22-30) mmol/L BUN 32 H (9-20) mg/dL Creatinine 1.31 H (0.66-1.25) mg/dL Glucose 125 H (74-99) mg/dL Calcium 10.5 H (8.4-10.2) mg/dL AST 29 (17-59) U/L ALT 30 (4-49) U/L Alkaline Phosphatase 60 (38-126) U/L Total Protein 7.2 (6.3-8.2) g/dL Albumin 4.3 (3.5-5.0) g/dL Current Medications Generic Name Dose Route Start Last Admin Trade Name Ronniq PRN Reason Stop Dose Admin Amlodipine Besylate 10 mg 08/10/24 13:30 Amlodipine 10 Mg Tab PO PC-LUNCH EVELYN Chlorthalidone 25 mg 08/10/24 13:30 Chlorthalidone 25 Mg Tab PO PC-LUNCH EVELYN Dextrose/Water 25 ml 08/09/24 14:27 Dextrose 50% Syringe 50 Ml IVP PER PROTOCOL PRN Hypoglycemia Protocol Dextrose/Water 50 ml 08/09/24 14:27 Dextrose 50% Syringe 50 Ml IVP PER PROTOCOL PRN Hypoglycemia Protocol Fluticasone Propionate 2 spray 08/10/24 09:00 Fluticasone Nasal 50mcg/[place] 16gm Btl EA NOSTRIL DAILY [facility] Insulin Human Lispro 0 unit 08/09/24 17:30 08/10/24 06:29 Insulin Lispro (Humalog) 100 Unit/Ml 10 Ml Vl SQ Not Given ACHS [facility] Protocol Lisinopril 40 mg 08/10/24 09:00 Lisinopril 20 Mg Tab PO DAILY EVELYN Nitroglycerin 0.4 mg 08/09/24 10:53 Nitroglycerin Sl Tabs 0.4 Mg Tab SUBLINGUAL Q5M PRN Chest Pain Intake and Output 08/09/24 08/10/24 08/10/24 22:59 06:59 14:59 Output Total 350 Balance -350 Output: Urine 350 Other: Voiding Method Toilet Toilet Urinal Urinal # Voids 2 Weight 102.058 kg 08/09/24 09:40 08/09/24 09:40
--- NOTE | 2024-08-10 12:04 | P.DS ---
Providers Date of admission: 08/09/24 11:28 Expected date of discharge: 08/10/24 Attending physician: Jose Angel Rowan MD Consults: 08/09/24 10:53 Consult Physician Urgent Consulting Provider: Jose Perez Consult Reason/Comments: chest pain Do you want consulting provider notified?: Yes Primary care physician: Antolin Jose [facility] Course: Discharge diagnoses; Chest pain, rule out acute coronary syndrome History of cerebral aneurysm requiring coiling History of hypertension History of diabetes mellitus Hospital course; patient is 64-year-old gentleman with past medical history significant for brain aneurysm status post coiling, hypertension, diabetes mellitus presents the ER because of chest pain. He was all right this morning when he experiencing left- sided chest pain, was pressure-like, nonradiating, no aggravating or relieving factors associated with chest pain. There was no complaint of orthopnea or PND. There was no complaint of shortness of breath at that time. There was no episode of diaphoresis during this episode of chest pain. Denies any nausea, vomiting abdominal pain. Patient denies any complaint of dizziness. There is no complaint of headache. Because of chest pain, patient came to the ER Initial lab work done in the ER showed WBC 8.19, hemoglobin 13.4, platelet count 216, sodium 140, potassium 4.1, BUN 32, creatinine 1.31, glucose 125, calcium 10.5, magnesium 1.7, bilirubin 0.7, AST 29, ALT 30, troponin 0.012 EKG done in the ER showed heart rate of 75 , no ST segment elevation or depression seen, no T-wave inversions seen. Chest x-ray done in the ER showed no acute cardiopulmonary process Patient admitted to internal medicine service 08/10. Patient seen and examined. Patient was evaluated by cardiology, 2D echo reviewed showing left medical hypertrophy and preserved systolic function, prominent posterior pericardial stripe. D-dimer was elevated, CT angio chest PE protocol done was negative for PE. Cardiology cleared the patient for discharge PHYSICAL EXAMINATION: GENERAL: The patient is alert and oriented x3, not in any acute distress. Well developed, well nourished. HEENT: Pupils are round and equally reacting to light. EOMI. No scleral icterus. No conjunctival pallor. Normocephalic, atraumatic. No pharyngeal erythema. No thyromegaly. CARDIOVASCULAR: S1 and S2 present. No murmurs, rubs, or gallops. PULMONARY: Chest is clear to auscultation, no wheezing or crackles. ABDOMEN: Soft, nontender, nondistended, normoactive bowel sounds. No palpable organomegaly. MUSCULOSKELETAL: No joint swelling or deformity. EXTREMITIES: No cyanosis, clubbing, or pedal edema. NEUROLOGICAL: Gross neurological examination did not reveal any focal deficits. SKIN: No rashes. Dictation was produced using [employer] dictation software. please excuse any grammatical, word or spelling errors. Patient Condition at Discharge: Fair Plan - Discharge Summary Discharge Rx Participant: Yes New Discharge Prescriptions: No Action metFORMIN HCL [metFORMIN HCL ER] 750 mg PO PC-BID@0730,1200 lisinopriL 40 mg PO DAILY Diclofenac Sodium Gel [Voltaren Gel] 2 gm TOPICAL DAILY PRN PRN Reason: Pain Fluticasone Nasal [place] [Flonase Nasal [place]] 2 spr EA NOSTRIL DAILY #16 gm amLODIPine 10 mg PO PC-LUNCH Avc Gummies 1 tab PO DAILY Chlorthalidone [Hygroton] 25 mg PO PC-LUNCH Vitamin D (Unknown) 1 tab PO DAILY Triamcinolone 0.1% Cream [Kenalog 0.1% Cream] 1 applic TOPICAL DAILY Vitamin C (Unknown) 1 tab PO DAILY Vitamin B (Unknown) 1 tab PO DAILY Vitamin A (Unknown Dose) 1 tab PO DAILY Discharge Medication List metFORMIN HCL [metFORMIN HCL ER] 750 mg PO PC-BID@0730,1200 04/21/16 [History] Diclofenac Sodium Gel [Voltaren Gel] 2 gm TOPICAL DAILY PRN 05/06/19 [History] lisinopriL 40 mg PO DAILY 05/06/19 [History] Avc Gummies 1 tab PO DAILY 07/26/24 [History] Chlorthalidone [Hygroton] 25 mg PO PC-LUNCH 07/26/24 [History] Fluticasone Nasal [place] [Flonase Nasal [place]] 2 spr EA NOSTRIL DAILY #16 gm 07/26/24 [Rx] Triamcinolone 0.1% Cream [Kenalog 0.1% Cream] 1 applic TOPICAL DAILY 07/26/24 [History] Vitamin A (Unknown Dose) 1 tab PO DAILY 07/26/24 [History] Vitamin B (Unknown) 1 tab PO DAILY 07/26/24 [History] Vitamin C (Unknown) 1 tab PO DAILY 07/26/24 [History] Vitamin D (Unknown) 1 tab PO DAILY 07/26/24 [History] amLODIPine 10 mg PO PC-LUNCH 07/26/24 [History] Follow up Appointment(s)/Referral(s): Antolin Garcia DO [Primary Care Provider] - 1-2 days
[2024-08-10] MEDS ORDERED: CHLORTHALIDONE 25 MG TAB PO SCH (13:30)
[2024-08-10] MEDS ORDERED: amLODIPine 10 MG TAB PO SCH (13:30)
[2024-08-10] MEDS ORDERED: ATORVASTATIN 20 MG TAB PO SCH (21:00)
== END 2024-08-10 11:35 | disposition home or self-care (01) ==
LOC: EC 08:36 → 6NMEDSUR 11:28
PROVIDERS: ADMIT Internal Medicine; ATTEND Internal Medicine
DX: R07.89 Other chest pain (principal); I11.9 Hypertensive heart disease without heart failure; I25.10 Atherosclerotic heart disease of native coronary artery without angina pectoris; E11.9 Type 2 diabetes mellitus without complications; E66.9 Obesity, unspecified; E78.5 Hyperlipidemia, unspecified; G47.30 Sleep apnea, unspecified; Z68.32 Body mass index [BMI] 32.0-32.9, adult; Z79.84 Long term (current) use of oral hypoglycemic drugs; Z79.899 Other long term (current) drug therapy; Z88.8 Allergy status to other drugs, medicaments and biological substances; Z88.6 Allergy status to analgesic agent; Z86.79 Personal history of other diseases of the circulatory system
CPT/HCPCS: 99285; 36415; 93005 ×2; 85379; 80061; 80053; 83735; 84484; 85025; 85610; 85730; 83036; 71046; 71275; G0378 ×2; C8929; Q9967; 93306

== ENCOUNTER 2024-09-28 10:11 | Emergency (ER) | payer MEDICARE, OTHER ==
[2024-09-28 10:23] VITALS: RESP 16; TEMP 98
--- NOTE | 2024-09-28 11:25 | ED ---
Extremity Problem HPI - General Chief complaint: Extremity Problem,Nontraumatic Stated complaint: Left toe infection Time Seen by Provider: 09/28/24 10:50 Source: patient, RN notes reviewed Mode of arrival: ambulatory Limitations: no limitations - History of Present Illness Initial comments: 64-year-old male presented ER for evaluation of great toe infection. Patient states he has followed up with a creative strategist in the past and was diagnosed with a fungal infection of his toenail. He states he was on a medication for approximately a week and a half. He is unsure of which medication. He states he has not followed up with podiatry since the end of June or July. He states over the past couple days he has noted worsening of what he believes is fungal infection with prompted emergency department visit. Patient is a diabetic. He denies any injuries or traumas. Patient is concerned of spreading infection. He denies any fevers, chills, myalgias or other complaints. No difficulty with ambulation - Related Data Home Medications Medication Instructions Recorded Confirmed metFORMIN HCL [metFORMIN HCL ER] 750 mg PO PC-BID@0730,1200 04/21/16 08/09/24 Diclofenac Sodium Gel [Voltaren 1% 2 gm TOPICAL DAILY PRN 05/06/19 08/09/24 Gel] lisinopriL 40 mg PO DAILY 05/06/19 08/09/24 Avc Gummies 1 tab PO DAILY 07/26/24 08/09/24 Chlorthalidone [Hygroton] 25 mg PO PC-LUNCH 07/26/24 08/09/24 Triamcinolone 0.1% Cream [Kenalog 1 applic TOPICAL DAILY 07/26/24 08/09/24 0.1% Cream] Vitamin A (Unknown Dose) 1 tab PO DAILY 07/26/24 08/09/24 Vitamin B (Unknown) 1 tab PO DAILY 07/26/24 08/09/24 Vitamin C (Unknown) 1 tab PO DAILY 07/26/24 08/09/24 Vitamin D (Unknown) 1 tab PO DAILY 07/26/24 08/09/24 amLODIPine 10 mg PO PC-LUNCH 07/26/24 08/09/24 Previous Rx's Medication Instructions Recorded Fluticasone Nasal Four States [Flonase 2 spr EA NOSTRIL DAILY #16 gm 07/26/24 Nasal Four States] Atorvastatin [Lipitor] 20 mg PO HS 30 Days #30 tab 08/10/24 Ciclopirox 1 applic TOPICAL HS #6.6 ml 09/28/24 Allergies Allergy/AdvReac Type Severity Reaction Status Date / Time aspirin Allergy Unknown Verified 08/09/24 10:49 valsartan Allergy Itching Verified 08/09/24 10:49 Review of Systems ROS Statement: Those systems with pertinent positive or pertinent negative responses have been documented in the HPI. ROS Other: All systems not noted in ROS Statement are negative. 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 Mother Family Medical History: Cancer Additional Family Medical History / Comment(s): Mother at age 42 from breast cancer. Patient has 2 brothers and 2 sisters with no major medical problems besides one sister with MRSA General Exam Limitations: no limitations General appearance: alert, in no apparent distress Respiratory exam: Present: normal lung sounds bilaterally. Absent: respiratory distress, wheezes, rales, rhonchi, stridor Cardiovascular Exam: Present: regular rate, normal rhythm, normal heart sounds. Absent: systolic murmur, diastolic murmur, rubs, gallop, clicks Extremities exam: Present: normal inspection, full ROM, normal capillary refill (2+ left DP pulse.). Absent: tenderness, pedal edema, joint swelling, calf tenderness Neurological exam: Present: alert, oriented X3, CN II-XII intact Skin exam: Present: warm, dry, intact, normal color, other (Thickening of nail and yellow discoloration to left great toenail. No purulent drainage. No focal bony tenderness. surrounding skin unremarkable) Course Vital Signs 09/28/24 09/28/24 10:15 11:44 Temperature 98 F 98 F Pulse Rate 65 66 Respiratory 16 16 Rate Blood Pressure 166/84 154/82 O2 Sat by Pulse 98 98 Oximetry Medical Decision Making - Medical Decision Making Was pt. sent in by a medical professional or institution (, [facility], MANAGER SYSTEM, urgent care, hospital, or skilled nursing...) When possible be specific @ -No Did you speak to anyone other than the patient for history (EMS, parent, family, police, friend...)? What history was obtained from this source @ -No Did you review nursing and triage notes (agree or disagree)? Why? @ -I reviewed and agree with nursing and triage notes Were old charts reviewed (outside hosp., previous admission, EMS record, old EKG, old radiological studies, urgent care reports/EKG's, skilled nursing records)? Report findings @ -No old charts were reviewed Differential Diagnosis (chest pain, altered mental status, abdominal pain women, abdominal pain men, vaginal bleeding, weakness, fever, dyspnea, syncope, headache, dizziness, GI bleed, back pain, seizure, CVA, palpatations, mental health, musculoskeletal)? @ -Gangrene, cellulitis, paronychia, onychomycosis, ingrown toenail... This list is not meant to be all-inclusive EKG interpreted by me (3pts min.). @ -None done X-rays interpreted by me (1pt min.). @ -None done CT interpreted by me (1pt min.). @ -None done U/S interpreted by me (1pt. min.). @ -None done What testing was considered but not performed or refused? (CT, X-rays, U/S, labs)? Why? @ -None What meds were considered but not given or refused? Why? @ -None Did you discuss the management of the patient with other professionals (professionals i.e. [facility] Blevins, MANAGER SYSTEM, lab, RT, psych nurse, social security specialist, administrative job titles, teacher, stream control officer, child welfare caseworker)? Give summary @ -No Was smoking cessation discussed for >3mins.? @ -No Was critical care preformed (if so, how long)? @ -No Were there social determinants of health that impacted care today? How? (Homelessness, low income, unemployed, alcoholism, drug addiction, transportation, low edu. Level, literacy, decrease access to med. care, [facility], rehab)? @ -No Was there de-escalation of care discussed even if they declined (Discuss DNR or withdrawal of care, Hospice)? DNR status @ -No What co-morbidities impacted this encounter? (DM, HTN, Smoking, COPD, CAD, Cancer, CVA, ARF, Chemo, Hep., AIDS, mental health diagnosis, sleep apnea, morbid obesity)? @ -DM Was patient admitted / discharged? Hospital course, mention meds given and route, prescriptions, significant lab abnormalities, going to OR and other pertinent info. @ -Discharge. 64-year-old male presented the ER for evaluation of left great toenail infection. Vital signs stable. Exam remarkable for thickening and yellow discoloration to left great toenail consistent with onychomycosis. No abnormality of surrounding skin. Patient is neurovascularly intact with no limited range of motion. Patient will be prescribed ciclopirox and advised to follow-up with podiatry, contact information provided at discharge. Return parameters discussed. Patient discharged stable condition. Patient verbally expressed understanding agree with care plan. Case discussed with ED attending, Dr. Ferreira. Undiagnosed new problem with uncertain prognosis? @ -No Drug Therapy requiring intensive monitoring for toxicity (Heparin, Nitro, Insulin, Cardizem)? @ -No Were any procedures done? @ -No Diagnosis/symptom? @ -Onychomycosis Acute, or Chronic, or Acute on Chronic? @ -Acute Uncomplicated (without systemic symptoms) or Complicated (systemic symptoms)? @ -Uncomplicated Side effects of treatment? @ -No Exacerbation, Progression, or Severe Exacerbation? @ -No Poses a threat to life or bodily function? How? (Chest pain, [place], [place], pneumonia, PE, COPD, DKA, ARF, appy, cholecystitis, CVA, Diverticulitis, Homicidal, Suicidal, threat to staff... and all critical care pts) @ -No Disposition Clinical Impression: Onychomycosis Disposition: HOME SELF-CARE Condition: Stable Instructions (If sedation given, give patient instructions): Ingrown Nail (ED) Additional Instructions: Follow-up with podiatry. Use ciclopirox once daily for 4weeks return to the ER for any new or worsening concerns. Prescriptions: Ciclopirox 1 applic TOPICAL HS #6.6 ml Is patient prescribed a controlled substance at d/c from ED?: No Referrals: Antolin Garcia DO [Primary Care Provider] - 1-2 days Nelida White DPM [STAFF PHYSICIAN] - 1-2 days Time of Disposition: 11:24
[2024-09-28 11:46] VITALS: BP 154/82; PULSE 66
== END 2024-09-28 11:46 | disposition home or self-care (01) ==
LOC: EC 10:11
DX: B35.1 Tinea unguium (principal); E11.9 Type 2 diabetes mellitus without complications; Z88.6 Allergy status to analgesic agent; Z88.1 Allergy status to other antibiotic agents
CPT/HCPCS: 99283